=== PATIENT | female | born 1995 | race American Indian/Alaskan Native ===

== ENCOUNTER 2017-03-09 03:23 | Emergency (ER) | payer OTHER ==
[2017-03-09 03:44] VITALS: RESP 18
--- NOTE | 2017-03-09 03:51 | C.PDOC ---
History Of Present Illness patient complains of her usual migraine headache, which was not relieved with her usual Excedrin.No visual changes, some nausea, no vomiting. Time Seen by Provider: 03/09/17 03:51 Chief Complaint (Nursing): Headache History Per: Patient History/Exam Limitations: no limitations Onset/Duration Of Symptoms: Days Current Symptoms Are (Timing): Still Present Severity: Moderate Pain Scale Rating Of: 5 Quality: Dull, Aching, Tightness Preceeding Symptoms: None Associated Symptoms: Nausea Recent travel outside of the [place]: No Additional History Per: Family Past Medical History Reviewed: Historical Data, Nursing Documentation, Vital Signs Vital Signs: Last Vital Signs Temp 100.5 F H 03/09/17 03:40 Pulse 106 H 03/09/17 03:40 Resp 18 03/09/17 03:40 BP 116/79 03/09/17 03:40 Pulse Ox 100 03/09/17 04:52 Family History: States: No Known Family Hx - Social History Hx Alcohol Use: No Hx Substance Use: No - Immunization History Hx Tetanus Toxoid Vaccination: No Hx Influenza Vaccination: No Hx Pneumococcal Vaccination: No Review Of Systems Constitutional: Negative for: Fever, Chills Eyes: Negative for: Redness ENT: Negative for: Throat Pain Cardiovascular: Negative for: Chest Pain Respiratory: Negative for: Shortness of Breath Gastrointestinal: Positive for: Nausea. Negative for: Vomiting Genitourinary: Negative for: Dysuria Musculoskeletal: Negative for: Back Pain Skin: Negative for: Rash, Lesions Neurological: Positive for: Headache Psych: Positive for: Anxiety Physical Exam - Physical Exam Appears: Non-toxic, No Acute Distress Skin: Warm, Dry Head: Normacephalic Eye(s): bilateral: Normal Inspection, PERRL, EOMI Oral Mucosa: Moist Neck: Supple Chest: Symmetrical Cardiovascular: Rhythm Regular Respiratory: No Rales, No Rhonchi, No Wheezing Gastrointestinal/Abdominal: Soft, No Tenderness, No Distention Back: No CVA Tenderness Extremity: Normal ROM Extremity: Bilateral: Atraumatic Neurological/Psych: Oriented x3, Normal Speech, Normal Cognition Gait: Steady ED Course And Treatment - Laboratory Results Result Diagrams: 03/09/17 04:12 03/09/17 04:12 O2 Sat by Pulse Oximetry: 100 Pulse Ox Interpretation: Normal Reevaluation Time: 05:26 Reassessment Condition: Improved Disposition Counseled Patient/Family Regarding: Studies Performed, Diagnosis, Need For Followup, Rx Given - Disposition Referrals: [facility] [Outside] [facility] [Outside] Disposition: HOME/ ROUTINE Disposition Time: 03:51 Condition: FAIR Prescriptions: Naproxen [Naprosyn] 1 tab PO BID PRN #12 tab PRN Reason: Pain Ondansetron ODT [Zofran ODT] 1 odt PO BID PRN #10 odt PRN Reason: Nausea/Vomiting Instructions: Migraine Headache (ED), Hypokalemia (DC) Forms: [employer] (Bhutanese) - Clinical Impression Clinical Impression: Migraine, Hypokalemia
[2017-03-09] MEDS ORDERED: DiphenhydrAMINE 50 mg/ml Inj IVP STA (03:54)
[2017-03-09] MEDS ORDERED: DiphenhydrAMINE 50 mg/ml Inj ONE (04:01)
[2017-03-09 04:15] LABS: BASO % 0.5 % (0.0-2.0); EOS % 0.1 % (0.0-4.0); HEMATOCRIT 39.4 % (34.0-47.0); LYMPH # 1.5 K/uL (1.0-4.3); LYMPH % 22.4 % (20.0-40.0); MEAN CELL VOLUME 87.2 fL (81.0-99.0); MEAN CORPUSCULAR HEMOGLOBIN 29.9 pg (27.0-31.0); MEAN CORPUSCULAR HGB CONC 34.2 g/dL (33.0-37.0); MONO # 0.6 K/uL (0.0-0.8); MONO % 8.7 % (0.0-10.0); RED CELL DISTRIBUTION WIDTH 13.3 % (11.5-14.5); WHITE BLOOD COUNT 6.7 K/uL (4.8-10.8)
[2017-03-09 04:27] LABS: BLOOD UREA NITROGEN 11 mg/dL (7-17); CALCIUM 8.8 mg/dl (8.6-10.4); CARBON DIOXIDE 21 mmol/L (22-30); CHLORIDE 99 mmol/L (98-107); GFR AFRICAN-AMERICAN > 60; GLUCOSE,RANDOM 95 mg/dL (65-105); POTASSIUM 3.2 mmol/L (3.6-5.2); SODIUM 140 mmol/L (132-148)
[2017-03-09 04:55] LABS: RBC URINE 2 /hpf (0-3); URINE BILIRUBIN NEGATIVE (NEGATIVE); URINE BLOOD NEGATIVE (NEGATIVE); URINE COLOR Yellow (YELLOW); URINE GLUCOSE (UA) NORMAL (Normal); URINE KETONE 1+ mg/dL (NEGATIVE); URINE LEUKOCYTE ESTERASE NEG Leu/uL (Negative); URINE PROTEIN 1+ mg/dL (NEGATIVE); URINE UROBILINOGEN NORMAL mg/dL (0.2-1.0); WBC URINE 3 /hpf (0-5)
[2017-03-09] MEDS ORDERED: Potassium Chloride 10 mEq ER Tab PO STA (05:26)
[2017-03-09] MEDS ORDERED: Potassium Chloride 10 mEq ER Tab PO ONE (05:31)
[2017-03-09 05:40] VITALS: BP 96/60; PULSE 105; TEMP 98.3; O2SAT 99
== END 2017-03-09 05:50 | disposition home or self-care (01) ==
LOC: C.ER 03:23
DX: E87.6 Hypokalemia (principal); G43.909 Migraine, unspecified, not intractable, without status migrainosus
CPT/HCPCS: 80048; 81001; 84703; 85025; 96374; 96375; 99285; G0480; J1200; J1885; J2405

== ENCOUNTER 2017-03-11 13:26 | Inpatient (IN) | payer OTHER ==
[2017-03-11 13:42] VITALS: BMI 17.6
[2017-03-11 13:57] LABS: BASO % 0.9 % (0.0-2.0); EOS % 0.1 % (0.0-4.0); HEMATOCRIT 37.6 % (34.0-47.0); LYMPH # 1.6 K/uL (1.0-4.3); LYMPH % 46.2 % (20.0-40.0); MEAN CORPUSCULAR HEMOGLOBIN 29.5 pg (27.0-31.0); MEAN CORPUSCULAR HGB CONC 34.3 g/dL (33.0-37.0); MEAN PLATELET VOLUME 6.8 fL (7.2-11.7); MONO # 0.3 K/uL (0.0-0.8); MONO % 9.8 % (0.0-10.0); NRBC % 0.1 % (0.0-2.0); WHITE BLOOD COUNT 3.5 K/uL (4.8-10.8)
[2017-03-11 14:08] LABS: ALB/GLOB RATIO 1.4 (1.0-2.1); ALKALINE PHOSPHATASE 32 U/L (38-126); ALT/SGPT 24 U/L (9-52); AST/SGOT 16 U/L (14-36); BILIRUBIN,TOTAL 0.4 mg/dL (0.2-1.3); BLOOD UREA NITROGEN 12 mg/dL (7-17); CALCIUM 8.3 mg/dl (8.6-10.4); CARBON DIOXIDE 22 mmol/L (22-30); CHLORIDE 93 mmol/L (98-107); GFR AFRICAN-AMERICAN > 60; GLUCOSE,RANDOM 106 mg/dL (65-105); POTASSIUM 3.5 mmol/L (3.6-5.2); SODIUM 132 mmol/L (132-148); TOTAL PROTEIN 6.5 g/dL (6.3-8.3)
[2017-03-11 14:48] LABS: RBC URINE < 1 /hpf (0-3); URINE BILIRUBIN NEGATIVE (NEGATIVE); URINE BLOOD NEGATIVE (NEGATIVE); URINE COLOR Yellow (YELLOW); URINE GLUCOSE (UA) NORMAL (Normal); URINE KETONE TRACE mg/dL (NEGATIVE); URINE LEUKOCYTE ESTERASE NEG Leu/uL (Negative); URINE PROTEIN NEGATIVE (NEGATIVE); URINE UROBILINOGEN NORMAL mg/dL (0.2-1.0); WBC URINE 2 /hpf (0-5)
[2017-03-11] MEDS ORDERED: Lidocaine 1% Inj (20ml) INFIL STA (14:54)
[2017-03-11] MEDS ORDERED: Lidocaine 1% Inj (20ml) ONE (15:02)
--- NOTE | 2017-03-11 15:34 | C.PDOC ---
History Of Present Illness <Lolyd Cline P - Last Filed: 03/11/17 16:33> <LetyMakayla - Last Filed: 03/11/17 19:04> 21 yo female with h/o migraines c/o headache for 5 days associated with fever, vomiting and neck pain. PT notes she was at school today and the nurse said her temp was 101. Lives in college dorm. States she has taken aleve without relief. No visual changes. (+) body aches. No rash. (Makayla Davidson) <Lloyd Cline P - Last Filed: 03/11/17 16:33> History Per: Patient History/Exam Limitations: no limitations Onset/Duration Of Symptoms: Days (3) Current Symptoms Are (Timing): Still Present Associated Symptoms: Photophobia, Nausea, Vomiting Additional History Per: Patient <Makayla Davidson - Last Filed: 03/11/17 19:04> Time Seen by Provider: 03/11/17 13:29 Chief Complaint (Nursing): Headache Past Medical History Reviewed: Historical Data, Nursing Documentation, Vital Signs - Medical History PMH: Migraine Family History: States: Unknown Family Hx - Social History Hx Alcohol Use: No Hx Substance Use: No - Immunization History Hx Tetanus Toxoid Vaccination: No Hx Influenza Vaccination: No Hx Pneumococcal Vaccination: No <Makayla Davidson - Last Filed: 03/11/17 19:04> Vital Signs: Last Vital Signs Temp 98.7 F 03/11/17 13:35 Pulse 99 H 03/11/17 13:35 Resp 19 03/11/17 13:35 BP 113/75 03/11/17 13:35 Pulse Ox 99 03/11/17 18:03 Review Of Systems Except As Marked, All Systems Reviewed And Found Negative. Constitutional: Positive for: Fever, Other (body aches) Eyes: Negative for: Vision Change Gastrointestinal: Positive for: Vomiting. Negative for: Abdominal Pain Musculoskeletal: Positive for: Neck Pain Skin: Negative for: Rash Neurological: Positive for: Headache. Negative for: Dizziness <Makayla Davidson - Last Filed: 03/11/17 19:04> Physical Exam - Physical Exam Appears: Non-toxic, Other (uncomfortable) Skin: Normal Color, Warm, Dry, No Rash Head: Atraumatic, Normacephalic Eye(s): bilateral: Normal Inspection, PERRL, EOMI Nose: Normal Oral Mucosa: Moist Neck: Decreased ROM, No Supple Chest: Symmetrical Cardiovascular: Rhythm Regular, No Murmur Respiratory: Normal Breath Sounds, No Rales, No Rhonchi, No Wheezing Gastrointestinal/Abdominal: Soft, No Tenderness Extremity: Normal ROM Neurological/Psych: Oriented x3, Normal Speech <Makayla Davidson - Last Filed: 03/11/17 19:04> ED Course And Treatment - Laboratory Results Result Diagrams: 03/11/17 13:52 03/11/17 13:52 <Lloyd Cline - Last Filed: 03/11/17 16:33> - Laboratory Results Result Diagrams: 03/11/17 13:52 03/11/17 13:52 O2 Sat by Pulse Oximetry: 99 (on RA) Pulse Ox Interpretation: Normal Progress Note: Blood work, UA, ordered and reviewed. Lumbar procedure was performed. Patient tolerated the procedure well with no immediate complications. CSF was sent to lab for analysis. Lab results reviewed. Pt was given Decadron, Reglan, Toradol, and Rocephin. On reassessment, pt is resting comfortably, with improvement of headache. Case discussed with Son, who evaluated pt and preformed LP. Case discsused with Dr Jaxon Aguila, agreed upon admission. Instructs ICU consult and Yassine ID consult. Case discussed with Dr Johnson, who instructs acyclovir and additional CSF test as ordered. Case endorsed to Dr Matos pending ICU evaluation. <Makayla Davdison - Last Filed: 03/11/17 19:04> Lumbar Puncture - Consent obtained Consent obtained: Written - Performed by Performed by: Attending Physician - Indications Indication(s): Suspected menigitis - Patient Position Patient position: Left lateral decubitus - Local Anesthetic Location: L3/L4 - Fluid Appearance Fluid Appearance: Clear - Post-procedure Post-procedure: No leak/bld from LP site, Dressing applied - CSF Studies CSF Studies: Cell count/diff, Glucose, Protein, Gram stain, culture/sensitivity - Patient tolerated procedure Patient tolerated procedure: Well <Lloyd Cline - Last Filed: 03/11/17 16:33> Disposition <Lloyd Cline - Last Filed: 03/11/17 16:33> - Disposition Disposition Time: 19:03 <Makayla Davidson - Last Filed: 03/11/17 19:04> - Disposition Disposition: HOSPITALIZED Condition: STABLE Forms: [facility] (Occitan) - Clinical Impression Clinical Impression: Meningitis, Headache <Lloyd Cline - Last Filed: 03/11/17 16:33> - PA / MAIL HANDLER / Resident Statement MD/DO has reviewed & agrees with the documentation as recorded. - Scribe Statement The provider has reviewed the documentation as recorded by the Scribe <Makayla Davidson - Last Filed: 03/11/17 19:04> - Scribe Statement Don Aguila All medical record entries made by the Scribe were at my direction and personally dictated by me. I have reviewed the chart and agree that the record accurately reflects my personal performance of the history, physical exam, medical decision making, and the department course for this patient. I have also personally directed, reviewed, and agree with the discharge instructions and disposition. (Makayla Davidson)
[2017-03-11 16:37] LABS: FLUID TYPE SPINAL FLUID
[2017-03-11] MEDS ORDERED: cefTRIAXone IV 1 gm in Dextros 50 ML IV ONE (17:00)
[2017-03-11] MEDS ORDERED: Dexamethasone 4 mg/1 ml IVP STA (17:02)
[2017-03-11] MEDS ORDERED: cefTRIAXone 2 GM in Sodium Chloride 0.9% 100 ML IVPB STA (17:06)
[2017-03-11] MEDS ORDERED: Dexamethasone 4 mg/1 ml ONE (17:22)
[2017-03-11 17:51] LABS: CSF NEUTROPHIL 2 % (0-0)
[2017-03-11] MEDS ORDERED: Acyclovir 400 MG in Sodium Chloride 0.9% 100 ML IV STA (18:44)
[2017-03-11] MEDS ORDERED: Vancomycin 1 GM 1 GM/250 ML BAG IV SCH (18:45)
[2017-03-11] MEDS ORDERED: Vancomycin 1 GM 1 GM/250 ML BAG IVPB ONE (19:31)
[2017-03-11] MEDS ORDERED: Vancomycin 1 GM 1 GM/250 ML BAG IV ONE (20:00)
--- NOTE | 2017-03-11 20:22 | CP.PCM.CON ---
History of Present Illness - History of Present Illness History of Present Illness: PCP: none Attending: Mingo Verduzco MD Reason for Consult: Assessment for ICU Chief Complaint: Headache Patient seen and examined in the ED HPI: 21 years old female who live in a college dorm, has Hx of Migraine who came to the Ed of 03/09/17 for headache. She was treated and discharged. She now returns 03/11/17 after being found with a temperature of 101F by the college nurse , with persistent severe frontal headache most intense above the eyes associated with nausea, vomits and stiff neck with some generalized body aches and stuffy nose. No coughing, SOB, chest pain, palpitation, diarrhea nor urinary symptoms. 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 FH: States Unknown family hx Allergies: NKDA Adverse effect to Pumpkin Medication: NSAID for Migraine Review of Systems - Constitutional Constitutional: Anorexia, Chills, Fatigue, Fever, Headache, Night Sweats - EENT Eyes: Photophobia. absent: Diplopia, Floaters, Requires Corrective Lenses, Sees Flashes Ears: absent: Decreased Hearing, Ear Discharge, Tinnitus Nose/Mouth/Throat: Nasal Congestion, Sinus Pain, Sinus Pressure. absent: Epistaxis, Sore Throat - Cardiovascular Cardiovascular: absent: Chest Pain, Dyspnea, Edema - Respiratory Respiratory: absent: Cough, Dyspnea, Wheezing - Gastrointestinal Gastrointestinal: Nausea, Vomiting. absent: Constipation, Diarrhea - Genitourinary Genitourinary: absent: Dysuria, Flank Pain, Hematuria, Urinary Frequency - Musculoskeletal Musculoskeletal: absent: Arthralgias, Back Pain Additional comments: Stiff neck Generalized muscular pains - Integumentary Integumentary: absent: Pruritus, Rash, Skin Ulcer, Sores, Striae, Swelling - Neurological Neurological: Headaches. absent: Confusion, Dizziness, Focal Weakness, Weakness - Psychiatric Psychiatric: absent: Anxiety, Depression, Panic Attacks - Endocrine Endocrine: absent: Palpitations, Polydipsia, Polyphagia, Polyuria - Hematologic/Lymphatic Hematologic: absent: Easy Bleeding, Easy Bruising Past Patient History - Past Medical History & Family History Past Medical History?: Yes - Past Social History Smoking Status: Never Smoked Chewing Tobacco Use: No Cigar Use: No Alcohol: None Drugs: Denies Home Situation {Lives}: With Family - CARDIAC Hx Cardiac Disorders: No - PULMONARY Hx Respiratory Disorders: No - NEUROLOGICAL Hx Migraine: Yes - HEENT Hx HEENT Problems: No - RENAL Hx Chronic Kidney Disease: No - ENDOCRINE/METABOLIC Hx Endocrine Disorders: No - HEMATOLOGICAL/ONCOLOGICAL Hx Blood Disorders: No - INTEGUMENTARY Hx Dermatological Problems: No - MUSCULOSKELETAL/RHEUMATOLOGICAL Hx Musculoskeletal Disorders: No - GASTROINTESTINAL Hx Gastrointestinal Disorders: No - GENITOURINARY/GYNECOLOGICAL Hx Genitourinary Disorders: No - PSYCHIATRIC Hx Psychophysiologic Disorder: No Hx Substance Use: No - SURGICAL HISTORY Hx Surgeries: No - ANESTHESIA Hx Anesthesia: No Meds Allergies/Adverse Reactions: Allergies Allergy/AdvReac Type Severity Reaction Status Date / Time pumpkin Allergy Verified 03/11/17 13:47 - Medications Medications: Current Medications Vancomycin HCl (Vancomycin 1gm In Normal Saline Addvantage) 1 gm in 250 mls @ 166.667 mls/hr IV STAT ONE Stop: 03/11/17 21:29 Last Admin: 03/11/17 20:04 Dose: 166.667 mls/hr Physical Exam - Constitutional Appears: Well, No Acute Distress - Head Exam Head Exam: ATRAUMATIC, NORMAL INSPECTION, NORMOCEPHALIC - Eye Exam Eye Exam: EOMI, Normal appearance Pupil Exam: NORMAL ACCOMODATION, PERRL - ENT Exam ENT Exam: Mucous Membranes Moist, Normal Exam, Normal External Ear Exam, Normal Oropharynx - Neck Exam Neck exam: Negative for: Lymphadenopathy Additional comments: Mild Nucal rigidity and pain of flexion. - Respiratory Exam Respiratory Exam: Clear to Auscultation Bilateral. absent: Rales, Rhonchi, Wheezes - Cardiovascular Exam Cardiovascular Exam: REGULAR RHYTHM, RRR, +S1, +S2. absent: Gallop, JVD - GI/Abdominal Exam GI & Abdominal Exam: Normal Bowel Sounds, Soft. absent: Mass, Organomegaly Additional comments: Mild generalized abdominal pain. No guarding nor rebound tenderness. - Rectal Exam Rectal Exam: Deferred - Extremities Exam Extremities exam: Positive for: full ROM, normal inspection. Negative for: calf tenderness - Back Exam Back exam: NORMAL INSPECTION. absent: CVA tenderness (L), CVA tenderness (R) - Neurological Exam Neurological exam: Alert, CN II-XII Intact, Oriented x3, Reflexes Normal Additional comments: Nucal rigidity - Psychiatric Exam Psychiatric exam: Normal Affect, Normal Mood - Skin Skin Exam: Dry, Intact, Normal Color, Warm Results - Vital Signs Recent Vital Signs: Last Vital Signs Temp 98.9 F 03/11/17 20:01 Pulse 81 03/11/17 20:01 Resp 19 03/11/17 20:01 BP 110/75 03/11/17 20:01 Pulse Ox 100 03/11/17 20:01 - Labs Result Diagrams: 03/11/17 13:52 03/11/17 13:52 Labs: Laboratory Results - last 24 hr 03/11/17 03/11/17 03/11/17 13:52 13:52 14:19 WBC 3.5 L RBC 4.37 Hgb 12.9 Hct 37.6 MCV 86.0 MCH 29.5 MCHC 34.3 RDW 13.0 Plt Count 204 MPV 6.8 L Neut % (Auto) 43.0 L Lymph % (Auto) 46.2 H [place] % (Auto) 9.8 Eos % (Auto) 0.1 Baso % (Auto) 0.9 Neut # 1.5 L Lymph # 1.6 [place] # 0.3 Eos # 0.0 Baso # 0.0 Sodium 132 Potassium 3.5 L Chloride 93 L Carbon Dioxide 22 Anion Gap 21 H BUN 12 Creatinine 0.9 Est GFR ( Amer) > 60 Est GFR (Non-Af Amer) > 60 Random Glucose 106 H Calcium 8.3 L Total Bilirubin 0.4 AST 16 ALT 24 Alkaline Phosphatase 32 L Total Protein 6.5 Albumin 3.8 Globulin 2.7 Albumin/Globulin Ratio 1.4 Urine Color Yellow Urine Clarity Clear Urine pH 5.0 Ur Specific Energy 1.010 Urine Protein Negative Urine Glucose (UA) Normal Urine Ketones Trace Urine Blood Negative Urine Nitrate Negative Urine Bilirubin Negative Urine Urobilinogen Normal Ur Leukocyte Esterase Neg Urine WBC (Auto) 2 Urine RBC (Auto) < 1 Ur Squamous Epith Cells 2 Urine HCG, Qual Fluid Type CSF Volume CSF Appearance CSF WBC CSF RBC CSF Total Cell Counted CSF Neutrophils CSF Lymphocytes CSF Monos/Macrophages CSF Comment CSF Glucose CSF Total Protein Influenza Typ A,B (EIA) 03/11/17 03/11/17 03/11/17 14:19 14:22 16:34 WBC RBC Hgb Hct MCV MCH MCHC RDW Plt Count MPV Neut % (Auto) Lymph % (Auto) [place] % (Auto) Eos % (Auto) Baso % (Auto) Neut # Lymph # [place] # Eos # Baso # Sodium Potassium Chloride Carbon Dioxide Anion Gap BUN Creatinine Est GFR ( Amer) Est GFR (Non-Af Amer) Random Glucose Calcium Total Bilirubin AST ALT Alkaline Phosphatase Total Protein Albumin Globulin Albumin/Globulin Ratio Urine Color Urine Clarity Urine pH Ur Specific Energy Urine Protein Urine Glucose (UA) Urine Ketones Urine Blood Urine Nitrate Urine Bilirubin Urine Urobilinogen Ur Leukocyte Esterase Urine WBC (Auto) Urine RBC (Auto) Ur Squamous Epith Cells Urine HCG, Qual Negative Fluid Type CSF Volume CSF Appearance CSF WBC CSF RBC CSF Total Cell Counted CSF Neutrophils CSF Lymphocytes CSF Monos/Macrophages CSF Comment CSF Glucose 46 CSF Total Protein 103.0 H* Influenza Typ A,B (EIA) Negative for flu a/b 03/11/17 16:34 WBC RBC Hgb Hct MCV MCH MCHC RDW Plt Count MPV Neut % (Auto) Lymph % (Auto) [place] % (Auto) Eos % (Auto) Baso % (Auto) Neut # Lymph # [place] # Eos # Baso # Sodium Potassium Chloride Carbon Dioxide Anion Gap BUN Creatinine Est GFR ( Amer) Est GFR (Non-Af Amer) Random Glucose Calcium Total Bilirubin AST ALT Alkaline Phosphatase Total Protein Albumin Globulin Albumin/Globulin Ratio Urine Color Urine Clarity Urine pH Ur Specific Energy Urine Protein Urine Glucose (UA) Urine Ketones Urine Blood Urine Nitrate Urine Bilirubin Urine Urobilinogen Ur Leukocyte Esterase Urine WBC (Auto) Urine RBC (Auto) Ur Squamous Epith Cells Urine HCG, Qual Fluid Type Spinal fluid CSF Volume 1 CSF Appearance Clear/colorless CSF WBC 158.0 H CSF RBC 4.0 H CSF Total Cell Counted TEST NOT PERFORMED CSF Neutrophils 2 H CSF Lymphocytes 92.0 H CSF Monos/Macrophages 4 H CSF Comment CSF Glucose CSF Total Protein Influenza Typ A,B (EIA) Assessment & Plan - Assessment and Plan (Free Text) Plan: 21 years old female who live in a college dorm, has Hx of Migraine who came to the Ed of 03/09/17 for headache. She was treated and discharged. She now returns after being found with a temperature of 101F by the college nurse, with persistent severe frontal headache, nausea, vomits and stiff neck . #. Viral Meningitis and not bacterial Meningitis as indicated in the CSF Lymphocytosis and elevated CSF Protein along with the general symptoms and signs The patient is hemodynamically stable and will need IV treatment Acyclovir. Vancomycin and Ceftriaxone were started in the ED -Follow Blood and CSF cultures - Head CT if not done - ID Dr Metzger is on consult - Droplet Precaution as per hospital protocol - Treat electrolyte imbalance No Immediate need for ICU management as the patient is Clinically and Hemodynamically stable. Fernando Fulton MD - Date & Time Date: 03/11/17 Time: 20:21
[2017-03-11] MEDS ORDERED: Potassium Chloride 20 mEq ER Tab PO STA (22:14)
[2017-03-11] MEDS ORDERED: Potassium Chloride 20 mEq ER Tab PO ONE (22:48)
[2017-03-12] MEDS: Acyclovir 500 MG in Sodium Chloride 0.9% 100 ML IV SCH ×3 (03:28→22:58)
[2017-03-12] MEDS: cefTRIAXone 2 GM in Sodium Chloride 0.9% 100 ML IVPB SCH ×2 (06:06→17:08)
[2017-03-12 07:04] LABS: BASO % 0.5 % (0.0-2.0); HEMATOCRIT 38.7 % (34.0-47.0); LYMPH # 0.9 K/uL (1.0-4.3); LYMPH % 40.1 % (20.0-40.0); MEAN CELL VOLUME 86.9 fL (81.0-99.0); MEAN CORPUSCULAR HEMOGLOBIN 29.8 pg (27.0-31.0); MEAN CORPUSCULAR HGB CONC 34.3 g/dL (33.0-37.0); MEAN PLATELET VOLUME 7.4 fL (7.2-11.7); MONO # 0.4 K/uL (0.0-0.8); MONO % 17.3 % (0.0-10.0); NRBC % 0.2 % (0.0-2.0); RED CELL DISTRIBUTION WIDTH 13.5 % (11.5-14.5); WHITE BLOOD COUNT 2.2 K/uL (4.8-10.8)
[2017-03-12 07:37] LABS: ALB/GLOB RATIO 1.1 (1.0-2.1); ALKALINE PHOSPHATASE 36 U/L (38-126); ALT/SGPT 24 U/L (9-52); AST/SGOT 21 U/L (14-36); BILIRUBIN,TOTAL 0.3 mg/dL (0.2-1.3); BLOOD UREA NITROGEN 14 mg/dL (7-17); CALCIUM 8.7 mg/dl (8.6-10.4); CARBON DIOXIDE 24 mmol/L (22-30); CHLORIDE 100 mmol/L (98-107); GFR AFRICAN-AMERICAN > 60; GLUCOSE,RANDOM 110 mg/dL (65-105); POTASSIUM 4.5 mmol/L (3.6-5.2); SODIUM 137 mmol/L (132-148); TOTAL PROTEIN 6.9 g/dL (6.3-8.3)
--- NOTE | 2017-03-12 09:00 | CT ---
PROCEDURE: CT HEAD WITHOUT CONTRAST. HISTORY: headache ,vomiting COMPARISON: None available. TECHNIQUE: Axial computed tomography images were obtained through the head/brain without intravenous contrast. Radiation dose: Total exam DLP = 711.77 mGy-cm. This CT exam was performed using one or more of the following dose reduction techniques: Automated exposure control, adjustment of the mA and/or kV according to patient size, and/or use of iterative reconstruction technique. FINDINGS: HEMORRHAGE: No intracranial hemorrhage. BRAIN: No mass effect or edema. No atrophy or chronic microvascular ischemic changes. VENTRICLES: Unremarkable. No hydrocephalus. CALVARIUM: Unremarkable. PARANASAL SINUSES: Unremarkable as visualized. No significant inflammatory changes. MASTOID AIR CELLS: Unremarkable as visualized. No inflammatory changes. OTHER FINDINGS: None. IMPRESSION: Normal CT of the Head. No intracranial mass, hemorrhage or evidence of acute infarct.
--- NOTE | 2017-03-12 15:44 | CP.PCM.HP ---
History of Present Illness - History of Present Illness History of Present Illness: 21-year-old female with history of migraine who lives in the dorm came in with a fever headache stiff neck along with the generalized body pain with some nausea and mild cough and stuffy nose no chest pain no shortness of breath no diarrhea no burning urination's upon arrival to the ER primary diagnosis was possible meningitis underwent lumbar puncture which showed lymphocytes of 92% with the CSF WBC of 153 with very high protein of 103 calcium was in the bladder was 8.3 WBC was 3.5 which came down to 2.2 patient also had a CAT scan done earlier which revealed and CAT scan revealed CAT scan revealed a normal CAT scan Past Patient History - Past Medical History & Family History Past Medical History?: Yes - Past Social History Smoking Status: Never Smoked - CARDIAC Hx Cardiac Disorders: No - PULMONARY Hx Respiratory Disorders: No - NEUROLOGICAL Hx Neurological Disorder: Yes Hx Migraine: Yes - HEENT Hx HEENT Problems: No - RENAL Hx Chronic Kidney Disease: No - ENDOCRINE/METABOLIC Hx Endocrine Disorders: No - HEMATOLOGICAL/ONCOLOGICAL Hx Blood Disorders: No - INTEGUMENTARY Hx Dermatological Problems: No - MUSCULOSKELETAL/RHEUMATOLOGICAL Hx Musculoskeletal Disorders: No Hx Falls: No - GASTROINTESTINAL Hx Gastrointestinal Disorders: Yes Other/Comment: has a hernia - GENITOURINARY/GYNECOLOGICAL Hx Genitourinary Disorders: No - PSYCHIATRIC Hx Psychophysiologic Disorder: No Hx Substance Use: No - SURGICAL HISTORY Hx Surgeries: No - ANESTHESIA Hx Anesthesia: No Hx Anesthesia Reactions: No Hx Malignant Hyperthermia: No Has any member of the family had a problem w/ anesthesia?: No Meds Allergies/Adverse Reactions: Allergies Allergy/AdvReac Type Severity Reaction Status Date / Time pumpkin Allergy Verified 03/11/17 13:47 Physical Exam - Constitutional Appears: Well - Head Exam Head Exam: ATRAUMATIC, NORMAL INSPECTION, NORMOCEPHALIC - Eye Exam Eye Exam: EOMI, Normal appearance, PERRL Pupil Exam: NORMAL ACCOMODATION, PERRL - ENT Exam ENT Exam: Mucous Membranes Moist, Normal Exam - Neck Exam Neck exam: Positive for: Normal Inspection - Respiratory Exam Respiratory Exam: Decreased Breath Sounds - Cardiovascular Exam Cardiovascular Exam: REGULAR RHYTHM, +S1, +S2 - GI/Abdominal Exam GI & Abdominal Exam: Diminished Bowel Sounds, Soft - Rectal Exam Rectal Exam: Deferred Results - Vital Signs Recent Vital Signs: Last Vital Signs Temp 99.8 F H 03/12/17 15:27 Pulse 81 03/12/17 15:27 Resp 18 03/12/17 15:27 BP 108/68 03/12/17 15:27 Pulse Ox 100 03/12/17 15:27 - Labs Result Diagrams: 03/12/17 06:55 03/12/17 06:55 Labs: Laboratory Results - last 24 hr 03/12/17 03/12/17 06:55 06:55 WBC 2.2 L RBC 4.45 Hgb 13.3 Hct 38.7 MCV 86.9 MCH 29.8 MCHC 34.3 RDW 13.5 Plt Count 224 MPV 7.4 Neut % (Auto) 42.1 L Lymph % (Auto) 40.1 H [place] % (Auto) 17.3 H Eos % (Auto) 0.0 Baso % (Auto) 0.5 Neut # 0.9 L Lymph # 0.9 L [place] # 0.4 Eos # 0.0 Baso # 0.0 Sodium 137 Potassium 4.5 Chloride 100 Carbon Dioxide 24 Anion Gap 17 BUN 14 Creatinine 0.7 Est GFR ( Amer) > 60 Est GFR (Non-Af Amer) > 60 Random Glucose 110 H Calcium 8.7 Total Bilirubin 0.3 AST 21 ALT 24 Alkaline Phosphatase 36 L Total Protein 6.9 Albumin 3.7 Globulin 3.2 Albumin/Globulin Ratio 1.1
--- NOTE | 2017-03-12 15:56 | PN ---
DATE: REFERRING PHYSICIAN: Dax Aguila MD HISTORY OF PRESENT ILLNESS: The patient feels significantly better than yesterday, but still complaining of headache on a scale of 1-10, 5-6/10 associated with mild photophobia and phonophobia. The patient is still in insolation room. The patient also is complaining of mild neck pain and generalized fatigue and weakness. PHYSICAL EXAMINATION VITAL SIGNS: Blood pressure 105/64, pulse 87, respirations 20, and temperature 99.1. MENTAL STATUS: The patient is alert, awake and oriented x3. CRANIAL NERVES: Pupils 3 mm bilaterally active. There is a minimal end-gaze nystagmus for few beats. No field defect. No facial asymmetry. There is mild tenderness in the neck and mild limited range of movement. MOTOR: No focal motor deficits. The patient do have still photophobia and phonophobia, but no nausea or vomiting. IMPRESSION: The patient's cerebrospinal fluid findings consistent with most likely viral meningitis less, likely bacterial, although entirelylymphocyte Continue current treatment with acylovir, ceftriaxone, and vancomycin, p.r.n. acetaminophen for the headache. The patient's examination is nonfocal at this point. No confusion and the patient's mental state is her baseline. No confusion associated with her meningitis. Thank you for the consultation and we will follow up with you. David Beatty MD SHAYY
--- NOTE | 2017-03-13 00:19 | CON ---
DATE: 03/11/2017 REASON FOR CONSULTATION: Headache and neck pain. HISTORY OF PRESENT ILLNESS: The patient is a 21-year-old right-handed pleasant lady with no significant past medical history except for occasional headache and migraine. The patient has been complaining from headache different than the headache she used to have for 5 days prior to admission, and the patient used to take Aleve without significant help. Usually, Aleve was is helping her and then the patient started to have neck pain and fever, nausea, vomiting, photophobia, phonophobia and generalized fatigue and weakness. The patient was found to have a temperature of 101 at the [facility] and the patient was sent to the emergency room for evaluation. The patient in the emergency room had a spinal tap and spinal tap was positive for increased protein. The patient was started on antiviral and antibiotics in the emergency room and neuro consult was requested for evaluation. The patient is currently in bed and family at bedside and isolation room in ER. PAST MEDICAL HISTORY: Migraines. SOCIAL HISTORY: Nonsmoker. Ethanol and drug abuser. ALLERGIES: ALLERGIC TO PUMPKIN. REVIEW OF SYSTEMS: As per H and P and ER note reviewed. PHYSICAL EXAMINATION VITAL SIGNS: Blood pressure 113/75, pulse 90 now, respirations 19, temperature 98.7. MENTAL STATUS: The patient is alert, awake, and oriented x3. Normal naming, repetition, comprehension. No agnosia, no apraxia. No right to left confusion. No finger agnosia. Double simultaneous stimulation intact. Pupils are 2 to 3 mm bilaterally active. No facial asymmetry. No field defect. V1 to V3 intact. Positive photophobia and phonophobia. HEENT: No nystagmus. No double vision. NECK: Marked stiffness of the neck, but tenderness. MOTOR: Normal tone in upper and lower extremities. No pronator drift. Upper and lower extremities deltoid, elbow, and environmental auditor 5/5. Lower extremities, hip, knee and ankle 5/5. Deep tendon reflexes 2 in the upper and lower extremities, plantar flexion both sides. SENSORY: Pinprick, light touch and position intact. Coordination, [id number] intact. LABORATORY DATA: White blood cells 3.5, red blood cells 4.37, neutrophils 43, lymphocytes 46.2. CSF; white blood cells 158, red blood cells of 4, neutrophils 2, lymphocytes 42, monocytes 4, protein 103. IMPRESSION: The patient's findings are most likely consistent with viral meningitis, but possibility of bacterial is less likely but cannot be excluded entirely, although the patient's white blood cells is low and lymphocytes and neutrophils are equal and the CSF lymphocyte is predominant, it makes possibility of viral highly likely. Continue current medication. The patient is on acyclovir, ceftriaxone, and vancomycin, in addition to Zofran p.r.n. and Tylenol for headaches. Continue current treatment, I have sent also the Lyme titer with some blood because of the frequent cases lately with Lyme disease and just we had a recent case with CH[employer] REPA[employer] Lyme disease. Thank you for the consultation and we will followup with you. David Beatty MD [facility]
[2017-03-13] MEDS: Acyclovir 500 MG in Sodium Chloride 0.9% 100 ML IV SCH ×3 (03:52→19:14)
[2017-03-13] MEDS: cefTRIAXone 2 GM in Sodium Chloride 0.9% 100 ML IVPB SCH ×2 (07:30→17:38)
--- NOTE | 2017-03-13 11:06 | CP.PCM.PN ---
Subjective - Date & Time of Evaluation Date of Evaluation: 03/13/17 Time of Evaluation: 10:20 - Subjective Subjective: clinically same Objective - Vital Signs/Intake and Output Vital Signs (last 24 hours): Temp Pulse Resp BP Pulse Ox 98.7 F 88 20 108/69 98 03/13/17 08:00 03/13/17 08:00 03/13/17 08:00 03/13/17 08:00 03/13/17 08:00 - Medications Medications: Current Medications Acetaminophen (Tylenol 325mg Tab) 650 mg PO Q6 PRN PRN Reason: Headache Last Admin: 03/13/17 05:12 Dose: 650 mg Acyclovir 500 mg/ Sodium (Chloride) 100 mls @ 100 mls/hr IV Q8H [facility] Last Admin: 03/13/17 03:52 Dose: 100 mls/hr Ceftriaxone Sodium 2 gm/ (Sodium Chloride) 100 mls @ 100 mls/hr IVPB Q12H [facility] Last Admin: 03/13/17 07:30 Dose: 100 mls/hr Vancomycin HCl 1,000 mg/ (Sodium Chloride) 250 mls @ 166.6 mls/hr IVPB Q12H [facility] Last Admin: 03/13/17 09:00 Dose: 166.6 mls/hr Ondansetron HCl (Zofran Inj) 4 mg IVP Q8 PRN PRN Reason: Nausea/Vomiting Last Admin: 03/12/17 12:58 Dose: 4 mg - Labs Labs: 03/12/17 06:55 03/12/17 06:55 - Constitutional Appears: Well - Head Exam Head Exam: ATRAUMATIC, NORMAL INSPECTION, NORMOCEPHALIC - Eye Exam Eye Exam: EOMI, Normal appearance, PERRL Pupil Exam: NORMAL ACCOMODATION, PERRL - ENT Exam ENT Exam: Mucous Membranes Moist, Normal Exam - Neck Exam Neck Exam: Full ROM, Normal Inspection. absent: Lymphadenopathy - Respiratory Exam Respiratory Exam: Decreased Breath Sounds - Cardiovascular Exam Cardiovascular Exam: REGULAR RHYTHM, +S1, +S2 - GI/Abdominal Exam GI & Abdominal Exam: Soft, Diminished Bowel Sounds - Rectal Exam Rectal Exam: Deferred
--- NOTE | 2017-03-13 14:43 | CP.PCM.CON ---
History of Present Illness - History of Present Illness History of Present Illness: 21 years old female who live in a college dorm, has Hx of Migraine who came to the Ed of 03/09/17 for headache. She was treated and discharged. She now returns after being found with a temperature of 101F by the college nurse, with persistent severe frontal headache most intense above the eyes associated with nausea, vomits and stiff neck with some generalized body aches and stuffy nose. No coughing, SOB, chest pain, palpitation, diarrhea nor urinary symptoms. 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 NO TRAVEL EXCEPT February NO BITES FH: States Unknown family hx Allergies: NKDA Adverse effect to Pumpkin Medication: NSAID for Migraine Review of Systems - Constitutional Constitutional: As Per HPI - EENT Eyes: absent: As Per HPI, Blind Spots, Blurred Vision, Change in Vision, Decreased Night Vision, Diplopia, Discharge, Dry Eye, Exophthalmos, Floaters, Irritation, Itchy Eyes, Loss of Peripheral Vision, Pain, Photophobia, Requires Corrective Lenses, Sees Flashes, Spots in Vision, Tunnel Vision, Other Visual Disturbances, Loss of Vision, Other Ears: absent: As Per HPI, Decreased Hearing, Ear Discharge, Ear Pain, Tinnitus, Abnormal Hearing, Disequilibrium, Dizziness, Other Nose/Mouth/Throat: absent: As Per HPI, Epistaxis, Nasal Congestion, Nasal Discharge, Nasal Obstruction, Nasal Trauma, Nose Pain, Post Nasal Drip, Sinus Pain, Sinus Pressure, Bleeding Gums, Change in Voice, Dental Pain, Dry Mouth, Dysphagia, Halitosis, Hoarsness, Lip Swelling, Mouth Lesions, Mouth Pain, Odynophagia, Sore Throat, Throat Swelling, Tongue Swelling, Facial Pain, Neck Pain, Neck Mass, Other - Breasts Breasts: absent: As Per HPI, Change in Shape, Mass, Pain, Nipple Discharge, Nipple Inversion, Skin Changes, Swelling, Other - Cardiovascular Cardiovascular: absent: As Per HPI, Acrocyanosis, Chest Pain, Chest Pain at Rest , Chest Pain with Activity, Claudication, Diaphoresis, Dyspnea, Dyspnea on Exertion, Edema, Irregular Heart Rhythm, Pain Radiating to Arm/Neck/Jaw, Leg Edema, Leg Ulcers, Lightheadedness, Orthopnea, Palpitations, Paroxysmal Nocturnal Dyspnea, Pedal Edema, Radiating Pain, Rapid Heart Rate, Slow Heart Rate, Syncope, Other - Respiratory Respiratory: absent: As Per HPI, Cough, Dyspnea, Hemoptysis, Dyspnea on Exertion , Wheezing, Snoring, Stridor, Pain on Inspiration, Chest Congestion, Excessive Mucous Production, Change in Mucous Color, Pain with Coughing, Other - Gastrointestinal Gastrointestinal: absent: As Per HPI, Abdominal Pain, Belching, Bloating, Change in Bowel Habits, Change in Stool Character, Coffee Ground Emesis, Constipation, Cramping, Diarrhea, Dyspepsia, Dysphagia, Early Satiety, Excessive Flatus, Fecal Incontinence, Heartburn, Hematemesis, Hematochezia, Loose Stools, Melena, Nausea, Odynophagia, Temesmus, Vomiting, Other - Genitourinary Genitourinary: absent: As Per HPI, Change in Urinary Stream, Difficulty Urinating, Dysuria, Flank Pain, Hematuria, Pyuria, Nocturia, Urinary Incontinence, Urinary Frequency, Urinary Hesitance, Urinary Urgency, Voiding Freq/Small Amts, Freq UTI, Hx Renal/Bladder Calculi, Hx /Renal Surgery, Bladder Distension, Other - Reproductive: Female Reproductive:Female: absent: As Per HPI, Amenorrhea, Amenorrhea/ Control, Currently Menstual, Cycle <21 Days, Cycle >35 Days, Cycle Variable, Menses 1-7 Days, Menses >/= 8 Days, Menses Variable, Cycle > 4 Weeks Between, No Menses for 6 Months, Heavy Menses, Light Menses, Normal Menses, Spotting Between Cycles , S/P Hysterectomy, Menopausal, Post Menopausal, Premenarche, Abnormal Vaginal Bleeding, Dysmenorrhea, Dyspareunia, Genital Lesions, Genital Pruritis, Pelvic Pain, Prolapse Symptoms, Sexual Dysfunction, Vaginal Discharge, Vaginal Dryness , Vaginal Odor, Vaginal Pruritis, Other - Menstruation Menstruation: absent: As Per HPI, Amenorrhea, Amenorrhea/ Control, Currently Menstual, Cycle <21 Days, Cycle >35 Days, Cycle Variable, Menses 1-7 Days, Menses >/= 8 Days, Menses Variable, Cycle > 4 Weeks Between, No Menses for 6 Months, Heavy Menses, Light Menses, Normal Menses, Spotting Between Cycles , S/P Hysterectomy, Menopausal, Post Menopausal, Premenarche, Abnormal Vaginal Bleeding, Dysmenorrhea, Other - Musculoskeletal Musculoskeletal: absent: As Per HPI, Abnormal Gait, Arthralgias, Atrophy, Back Pain, Deformity, Joint Swelling, Limited Range of Motion, Loss of Height, Muscle Cramps, Muscle Weakness, Myalgias, Neck Pain, Numbness, Radiating Pain into Limb, Stiffness, Tingling, Other - Integumentary Integumentary: absent: As Per HPI, Acne, Alopecia, Bleeding Lesions, Change in Hair, Change in Nails, Change in Pigmentation, Changing Lesions, Dry Skin, Erythema, Furuncle, Hirsutism, Lesions, New Lesions, Non-Healing Lesions, Photosensitivity, Pruritus, Rash, Skin Pain, Skin Ulcer, Sores, Striae, Swelling , Unusual Bruising, Wounds, Jaundice, Other - Neurological Neurological: As Per HPI - Psychiatric Psychiatric: absent: As Per HPI, Abnormal Sleep Pattern, Anhedonia, Anxiety, Auditory Hallucinations, Behavioral Changes, Change in Appetite, Change in Libido, Confusion, Depression, Difficulty Concentrating, Hallucinations, Homicidal Ideation, Hopelessness, Irritability, Memory Loss, Mood Swings, Panic Attacks, Paranoia, Suicidal Ideation, Visual Hallucinations, Tactile Hallucinations, Other - Endocrine Endocrine: absent: As Per HPI, Change in Body Appearance, Change in Libido, Cold Intolorance, Deepening of Voice, Excessive Sweating, Fatigue, Flushing, Heat Intolorance, Increase in Ring/Shoe/Hat Size, Palpitations, Polydipsia, Polyphagia, Polyuria, Other - Hematologic/Lymphatic Hematologic: absent: As Per HPI, Easy Bleeding, Easy Bruising, Lymphadenopathy, Other Past Patient History - Past Medical History & Family History Past Medical History?: Yes - Past Social History Smoking Status: Never Smoked - CARDIAC Hx Cardiac Disorders: No - PULMONARY Hx Respiratory Disorders: No - NEUROLOGICAL Hx Neurological Disorder: Yes Hx Migraine: Yes - HEENT Hx HEENT Problems: No - RENAL Hx Chronic Kidney Disease: No - ENDOCRINE/METABOLIC Hx Endocrine Disorders: No - HEMATOLOGICAL/ONCOLOGICAL Hx Blood Disorders: No - INTEGUMENTARY Hx Dermatological Problems: No - MUSCULOSKELETAL/RHEUMATOLOGICAL Hx Musculoskeletal Disorders: No Hx Falls: No - GASTROINTESTINAL Hx Gastrointestinal Disorders: Yes Other/Comment: has a hernia - GENITOURINARY/GYNECOLOGICAL Hx Genitourinary Disorders: No - PSYCHIATRIC Hx Psychophysiologic Disorder: No Hx Substance Use: No - SURGICAL HISTORY Hx Surgeries: No - ANESTHESIA Hx Anesthesia: No Hx Anesthesia Reactions: No Hx Malignant Hyperthermia: No Has any member of the family had a problem w/ anesthesia?: No Meds Allergies/Adverse Reactions: Allergies Allergy/AdvReac Type Severity Reaction Status Date / Time pumpkin Allergy Verified 03/11/17 13:47 - Medications Medications: Current Medications Acetaminophen (Tylenol 325mg Tab) 650 mg PO Q6 PRN PRN Reason: Headache Last Admin: 03/13/17 11:48 Dose: 650 mg Acyclovir 500 mg/ Sodium (Chloride) 100 mls @ 100 mls/hr IV [facility]H [facility] Last Admin: 03/13/17 11:49 Dose: 100 mls/hr Ceftriaxone Sodium 2 gm/ (Sodium Chloride) 100 mls @ 100 mls/hr IVPB Q12H [facility] Last Admin: 03/13/17 07:30 Dose: 100 mls/hr Vancomycin HCl 1,000 mg/ (Sodium Chloride) 250 mls @ 166.6 mls/hr IVPB Q12H [facility] Last Admin: 03/13/17 09:00 Dose: 166.6 mls/hr Ondansetron HCl (Zofran Inj) 4 mg IVP Q8 PRN PRN Reason: Nausea/Vomiting Last Admin: 03/12/17 12:58 Dose: 4 mg Physical Exam - Constitutional Appears: Non-toxic, Chronically Ill - Head Exam Head Exam: NORMOCEPHALIC - Eye Exam Eye Exam: PERRL. absent: Scleral icterus - ENT Exam ENT Exam: Mucous Membranes Dry - Neck Exam Neck exam: Negative for: Lymphadenopathy - Respiratory Exam Respiratory Exam: Decreased Breath Sounds, Clear to Auscultation Bilateral - Cardiovascular Exam Cardiovascular Exam: REGULAR RHYTHM, +S1, +S2 - GI/Abdominal Exam GI & Abdominal Exam: Diminished Bowel Sounds, Soft. absent: Tenderness - Rectal Exam Rectal Exam: Deferred - Exam Exam: NORMAL INSPECTION - Extremities Exam Extremities exam: Positive for: pedal pulses present. Negative for: calf tenderness, pedal edema, tenderness - Back Exam Back exam: absent: CVA tenderness (L), CVA tenderness (R) - Neurological Exam Neurological exam: Alert, CN II-XII Intact, Oriented x3, Reflexes Normal - Psychiatric Exam Psychiatric exam: Normal Mood - Skin Skin Exam: Dry, Intact Results - Vital Signs Recent Vital Signs: Last Vital Signs Temp 98.7 F 03/13/17 08:00 Pulse 87 03/13/17 12:45 Resp 20 03/13/17 08:00 BP 108/69 03/13/17 08:00 Pulse Ox 98 03/13/17 08:00 - Labs Result Diagrams: 03/12/17 06:55 03/12/17 06:55 Assessment & Plan (1) Headache Status: Acute (2) Meningitis Status: Acute - Assessment and Plan (Free Text) Assessment: SHANTA VIRAL AWAIT SEROLOGIES/ CULTURES
[2017-03-14] MEDS: Acyclovir 500 MG in Sodium Chloride 0.9% 100 ML IV SCH ×3 (03:31→20:19)
[2017-03-14] MEDS: cefTRIAXone 2 GM in Sodium Chloride 0.9% 100 ML IVPB SCH ×2 (06:02→17:21)
[2017-03-14 11:46] LABS: BASO % 1.1 % (0.0-2.0); EOS % 0.2 % (0.0-4.0); HEMATOCRIT 38.3 % (34.0-47.0); LYMPH # 2.1 K/uL (1.0-4.3); LYMPH % 57.6 % (20.0-40.0); MEAN CELL VOLUME 87.1 fL (81.0-99.0); MEAN CORPUSCULAR HEMOGLOBIN 29.3 pg (27.0-31.0); MEAN CORPUSCULAR HGB CONC 33.7 g/dL (33.0-37.0); MEAN PLATELET VOLUME 7.5 fL (7.2-11.7); MONO # 0.5 K/uL (0.0-0.8); MONO % 13.2 % (0.0-10.0); NRBC % 0.1 % (0.0-2.0); WHITE BLOOD COUNT 3.6 K/uL (4.8-10.8)
[2017-03-14 12:07] LABS: ALB/GLOB RATIO 1.3 (1.0-2.1); ALKALINE PHOSPHATASE 29 U/L (38-126); ALT/SGPT 24 U/L (9-52); AST/SGOT 18 U/L (14-36); BILIRUBIN,TOTAL 0.4 mg/dL (0.2-1.3); BLOOD UREA NITROGEN 9 mg/dL (7-17); CALCIUM 8.9 mg/dl (8.6-10.4); CARBON DIOXIDE 25 mmol/L (22-30); CHLORIDE 95 mmol/L (98-107); GFR AFRICAN-AMERICAN > 60; GLUCOSE,RANDOM 81 mg/dL (65-105); PHOSPHOROUS 4.3 mg/dL (2.5-4.5); POTASSIUM 3.6 mmol/L (3.6-5.2); SODIUM 137 mmol/L (132-148); TOTAL PROTEIN 6.6 g/dL (6.3-8.3)
--- NOTE | 2017-03-14 12:37 | CP.PCM.PN ---
Subjective - Date & Time of Evaluation Date of Evaluation: 03/14/17 Time of Evaluation: 07:00 - Subjective Subjective: fever again last night all bacterial cultures neg will d/c vanco Objective - Vital Signs/Intake and Output Vital Signs (last 24 hours): Temp Pulse Resp BP Pulse Ox 99.7 F H 98 H 16 100/59 L 98 03/14/17 07:25 03/14/17 08:00 03/14/17 07:25 03/14/17 07:25 03/14/17 07:25 - Medications Medications: Current Medications Acetaminophen (Tylenol 325mg Tab) 650 mg PO Q6 PRN PRN Reason: Headache Last Admin: 03/14/17 06:01 Dose: 650 mg Acyclovir 500 mg/ Sodium (Chloride) 100 mls @ 100 mls/hr IV Q8H [facility] Last Admin: 03/14/17 12:27 Dose: 100 mls/hr Ceftriaxone Sodium 2 gm/ (Sodium Chloride) 100 mls @ 100 mls/hr IVPB Q12H [facility] Last Admin: 03/14/17 06:02 Dose: 100 mls/hr Ondansetron HCl (Zofran Inj) 4 mg IVP Q8 PRN PRN Reason: Nausea/Vomiting Last Admin: 03/12/17 12:58 Dose: 4 mg - Labs Labs: 03/14/17 11:41 03/14/17 11:41 - Constitutional Appears: Non-toxic, Chronically Ill - Head Exam Head Exam: NORMOCEPHALIC - Eye Exam Eye Exam: PERRL. absent: Scleral icterus - ENT Exam ENT Exam: Mucous Membranes Dry, Normal External Ear Exam - Neck Exam Neck Exam: absent: Lymphadenopathy - Respiratory Exam Respiratory Exam: Decreased Breath Sounds - Cardiovascular Exam Cardiovascular Exam: REGULAR RHYTHM - GI/Abdominal Exam GI & Abdominal Exam: Distended, Soft - Rectal Exam Rectal Exam: Deferred - Exam Exam: NORMAL INSPECTION - Extremities Exam Extremities Exam: absent: Pedal Edema - Back Exam Back Exam: absent: CVA tenderness (L), CVA tenderness (R) - Neurological Exam Neurological Exam: Alert, Awake, Oriented x3 - Psychiatric Exam Psychiatric exam: Normal Mood - Skin Skin Exam: Dry Assessment and Plan (1) Headache Status: Acute (2) Meningitis Status: Acute
--- NOTE | 2017-03-14 13:39 | CP.PCM.PN ---
Subjective - Date & Time of Evaluation Date of Evaluation: 03/14/17 Time of Evaluation: 13:35 - Subjective Subjective: Progress Note. Attending: Dr. Jaxon Aguila Pt seen and examined at bedside. No acute distress. Fever overnight, but resolved. Reports some muscle aches. No vomiting, diarrhea, headache better. ID following. Objective - Vital Signs/Intake and Output Vital Signs (last 24 hours): Temp Pulse Resp BP Pulse Ox 100.4 F H 98 H 16 100/59 L 98 03/14/17 13:00 03/14/17 08:00 03/14/17 07:25 03/14/17 07:25 03/14/17 07:25 - Medications Medications: Current Medications Acetaminophen (Tylenol 325mg Tab) 650 mg PO Q6 PRN PRN Reason: Headache Last Admin: 03/14/17 13:00 Dose: 650 mg Acyclovir 500 mg/ Sodium (Chloride) 100 mls @ 100 mls/hr IV Q8H [facility] Last Admin: 03/14/17 12:27 Dose: 100 mls/hr Ceftriaxone Sodium 2 gm/ (Sodium Chloride) 100 mls @ 100 mls/hr IVPB Q12H [facility] Last Admin: 03/14/17 06:02 Dose: 100 mls/hr Ondansetron HCl (Zofran Inj) 4 mg IVP Q8 PRN PRN Reason: Nausea/Vomiting Last Admin: 03/12/17 12:58 Dose: 4 mg - Labs Labs: 03/14/17 11:41 03/14/17 11:41 - Constitutional Appears: Non-toxic, No Acute Distress - Head Exam Head Exam: ATRAUMATIC, NORMAL INSPECTION, NORMOCEPHALIC - Eye Exam Eye Exam: EOMI - ENT Exam ENT Exam: Mucous Membranes Moist - Neck Exam Neck Exam: Full ROM, Normal Inspection - Respiratory Exam Respiratory Exam: NORMAL BREATHING PATTERN. absent: Respiratory Distress - Cardiovascular Exam Cardiovascular Exam: +S1, +S2 - GI/Abdominal Exam GI & Abdominal Exam: Soft, Normal Bowel Sounds. absent: Tenderness - Extremities Exam Extremities Exam: Full ROM, Normal Inspection - Neurological Exam Neurological Exam: Alert, Awake, Oriented x3 - Psychiatric Exam Psychiatric exam: Normal Affect, Normal Mood - Skin Skin Exam: Dry, Intact, Normal Color, Warm Assessment and Plan - Assessment and Plan (Free Text) Assessment: This is a 21 yo female with pmh of migraines presenting with cc of headache, found to have viral meningitis 1. Viral meningitis -spinal tap performed -lymphocytic predominance -neurology consulted. recs appreciated -ID consulted. recs appreciated. -cont tylenol for fever -continue acyclovir 500 q 8 -cont ceftriaxone 2 g q 12 -vanco dc'd -zofran 4 q 8 -CSF, blood culture neg 2. Migraines -cont to monitor -tylenol for pain 3. GI/DVT ppx -regular diet -SCDs Discussed with Dr. Aguila -
--- NOTE | 2017-03-14 21:50 | CP.PCM.PN ---
Subjective - Date & Time of Evaluation Date of Evaluation: 03/14/17 Time of Evaluation: 12:00 - Subjective Subjective: clinically same Objective - Vital Signs/Intake and Output Vital Signs (last 24 hours): Temp Pulse Resp BP Pulse Ox 102.6 F H 107 H 18 113/73 100 03/14/17 20:59 03/14/17 16:00 03/14/17 16:00 03/14/17 16:00 03/14/17 16:00 Intake and Output: 03/14/17 03/15/17 18:59 06:59 Intake Total 100 Balance 100 - Medications Medications: Current Medications Acetaminophen (Tylenol 325mg Tab) 650 mg PO Q6 PRN PRN Reason: Headache Last Admin: 03/14/17 20:59 Dose: 650 mg Acyclovir 500 mg/ Sodium (Chloride) 100 mls @ 100 mls/hr IV Q8H [facility] Last Admin: 03/14/17 20:19 Dose: 100 mls/hr Ceftriaxone Sodium 2 gm/ (Sodium Chloride) 100 mls @ 100 mls/hr IVPB Q12H [facility] Last Admin: 03/14/17 17:21 Dose: 100 mls/hr Ondansetron HCl (Zofran Inj) 4 mg IVP Q8 PRN PRN Reason: Nausea/Vomiting Last Admin: 03/12/17 12:58 Dose: 4 mg - Labs Labs: 03/14/17 11:41 03/14/17 11:41 - Constitutional Appears: Well - Head Exam Head Exam: ATRAUMATIC, NORMAL INSPECTION, NORMOCEPHALIC - Eye Exam Eye Exam: EOMI, Normal appearance, PERRL Pupil Exam: NORMAL ACCOMODATION, PERRL - ENT Exam ENT Exam: Mucous Membranes Moist, Normal Exam - Neck Exam Neck Exam: Full ROM, Normal Inspection. absent: Lymphadenopathy - Respiratory Exam Respiratory Exam: Decreased Breath Sounds - Cardiovascular Exam Cardiovascular Exam: REGULAR RHYTHM, +S1, +S2 - GI/Abdominal Exam GI & Abdominal Exam: Soft, Diminished Bowel Sounds - Rectal Exam Rectal Exam: Deferred
[2017-03-15] MEDS: Acyclovir 500 MG in Sodium Chloride 0.9% 100 ML IV SCH ×3 (03:26→21:33)
[2017-03-15] MEDS: cefTRIAXone 2 GM in Sodium Chloride 0.9% 100 ML IVPB SCH ×2 (05:00→17:04)
[2017-03-15 06:57] LABS: BASO % 0.9 % (0.0-2.0); EOS % 0.6 % (0.0-4.0); HEMATOCRIT 35.8 % (34.0-47.0); LYMPH # 2.2 K/uL (1.0-4.3); LYMPH % 46.5 % (20.0-40.0); MEAN CELL VOLUME 86.1 fL (81.0-99.0); MEAN CORPUSCULAR HEMOGLOBIN 29.4 pg (27.0-31.0); MEAN CORPUSCULAR HGB CONC 34.1 g/dL (33.0-37.0); MEAN PLATELET VOLUME 7.7 fL (7.2-11.7); MONO # 0.5 K/uL (0.0-0.8); MONO % 11.4 % (0.0-10.0); RED CELL DISTRIBUTION WIDTH 12.8 % (11.5-14.5); WHITE BLOOD COUNT 4.8 K/uL (4.8-10.8)
[2017-03-15 07:23] LABS: SPECIMEN SOURCE CSF
[2017-03-15 07:39] LABS: CHLORIDE 100 mmol/L (98-107)
[2017-03-15 07:40] LABS: POTASSIUM 3.5 mmol/L (3.6-5.2); SODIUM 135 mmol/L (132-148)
[2017-03-15 07:42] LABS: ALB/GLOB RATIO 1.4 (1.0-2.1); ALKALINE PHOSPHATASE 27 U/L (38-126); ALT/SGPT 24 U/L (9-52); AST/SGOT 20 U/L (14-36); BILIRUBIN,TOTAL 0.5 mg/dL (0.2-1.3); BLOOD UREA NITROGEN 9 mg/dL (7-17); CARBON DIOXIDE 24 mmol/L (22-30); GFR AFRICAN-AMERICAN > 60; TOTAL PROTEIN 6.5 g/dL (6.3-8.3)
[2017-03-15 07:43] LABS: CALCIUM 8.4 mg/dl (8.6-10.4); GLUCOSE,RANDOM 93 mg/dL (65-105); MAGNESIUM 1.9 mg/dL (1.6-2.3); PHOSPHOROUS 3.7 mg/dL (2.5-4.5)
[2017-03-15] MEDS ORDERED: POLYETHYLENE GLYCOL 3350 17 GM/Dose PACKET PO ONE (07:52)
[2017-03-15 07:57] LABS: LYME DISEASE SCREEN <0.90 index
[2017-03-15] MEDS ORDERED: Potassium Chloride 20 mEq ER Tab PO ONE (10:00)
--- NOTE | 2017-03-15 13:24 | CP.PCM.PN ---
Subjective - Date & Time of Evaluation Date of Evaluation: 03/15/17 Time of Evaluation: 08:00 - Subjective Subjective: PGY 3 Medicine Progress Note - Dr. Jaxon Aguila's Service: Patient seen and examined this AM. Patient reports abdominal pain this AM. She also has nausea and vomiting. Patient has been unable to tolerated the small meals she's had today. She feels "gassy". She has not had a BM in 5 days. She does not report straining. Admits to fever overnight. She also admits to body aches and pain. No headache or visual changes. She does report some dizziness now. Objective - Vital Signs/Intake and Output Vital Signs (last 24 hours): Temp Pulse Resp BP Pulse Ox 97.2 F L 79 20 115/75 96 03/15/17 08:52 03/15/17 08:52 03/15/17 08:52 03/15/17 08:52 03/15/17 08:52 - Medications Medications: Current Medications Acetaminophen (Tylenol 325mg Tab) 650 mg PO Q6 PRN PRN Reason: Headache Last Admin: 03/14/17 20:59 Dose: 650 mg Docusate Sodium (Colace) 100 mg PO DAILY [facility] Last Admin: 03/15/17 10:51 Dose: 100 mg Famotidine (Pepcid) 20 mg PO BID [facility] Acyclovir 500 mg/ Sodium (Chloride) 100 mls @ 100 mls/hr IV Q8H [facility] Last Admin: 03/15/17 12:32 Dose: 100 mls/hr Ceftriaxone Sodium 2 gm/ (Sodium Chloride) 100 mls @ 100 mls/hr IVPB Q12H [facility] Last Admin: 03/15/17 05:00 Dose: 100 mls/hr Ondansetron HCl (Zofran Inj) 4 mg IVP Q8 PRN PRN Reason: Nausea/Vomiting Last Admin: 03/15/17 12:31 Dose: 4 mg - Labs Labs: 03/15/17 06:48 03/15/17 06:48 - Constitutional Appears: No Acute Distress - Head Exam Head Exam: NORMAL INSPECTION, NORMOCEPHALIC - Eye Exam Eye Exam: EOMI, Normal appearance - ENT Exam ENT Exam: Mucous Membranes Moist - Neck Exam Neck Exam: Full ROM, Normal Inspection - Respiratory Exam Respiratory Exam: Clear to Ausculation Bilateral, NORMAL BREATHING PATTERN - Cardiovascular Exam Cardiovascular Exam: REGULAR RHYTHM - GI/Abdominal Exam GI & Abdominal Exam: Soft. absent: Distended, Tenderness - Extremities Exam Extremities Exam: Full ROM, Normal Inspection - Back Exam Back Exam: NORMAL INSPECTION - Neurological Exam Neurological Exam: Alert, Awake, Oriented x3 - Skin Skin Exam: Normal Color, Warm Assessment and Plan (1) Meningitis Assessment & Plan: LP performed. Patient with viral meningitis. CSF with negaitve cultures X4 days. CSF showes lymphocytic predominance with elevated protein. HIV, HSV and Lyme all negative. Head CT negative. Neurology following- Dr. Beatty- help appreciated. As per Dr. Beatty, likely viral meningitis. Continue with anti-virals. ID following- Dr. Santizo- help appreciated. * continue acyclovir 500 IVPB q 8- DAY 4 * cont ceftriaxone 2 g IVPB q 12- Day 4 Status: Acute (2) Nausea and vomiting Assessment & Plan: Patient with intractable nausea and vomiting and abdominal pain this AM. Abdominal pain resolved in the afternoon. Patient given bowel regimen today. Awaiting patient to have BM, since she has not had one in 5 days. Diet changed to bland. Obstruction series ordered. * Miralax X 1 given today * Started Colace daily * Started Pepcid 20 mg PO BID * Start IVF NS at 100 cc/hr * Continue Zofran PRN Status: Acute (3) Constipation Assessment & Plan: Abdominal pain resolved. F/U obstruction series ordered. * Miralax X 1 given today * Colace daily started Status: Acute (4) Prophylactic measure Assessment & Plan: Pepcid 20 mg PO BID SCD's all managment as per Dr. Jaxon Aguila. Status: Acute
--- NOTE | 2017-03-15 17:50 | RAD ---
PROCEDURE: Radiographs of the chest and abdomen (obstructive series) HISTORY: intractable n/v, abdominal pain COMPARISON: No prior. TECHNIQUE: AP radiograph of the chest, with upright and supine radiographs of the abdomen. FINDINGS: CHEST: Lungs: Clear. Cardiovascular: Normal size heart. No pulmonary vascular congestion. Pleura: No pleural fluid. No pneumothorax. Other findings: None. ABDOMEN AND PELVIS: Bowel: Mildly dilated small bowel loops seen at the left mid abdomen. No evidence of high-grade bowel obstruction. Mildly dilated right colon. Free air: None. Bones: Unremarkable. Other findings: None. IMPRESSION: No evidence of acute pulmonary disease or subdiaphragmatic air. Mildly dilated small bowel loops seen at the left mid abdomen demonstrate mild wall thickening. No evidence of high-grade bowel obstruction. Mildly dilated right colon.
--- NOTE | 2017-03-15 21:15 | CP.PCM.PN ---
Subjective - Date & Time of Evaluation Date of Evaluation: 03/15/17 Time of Evaluation: 13:00 - Subjective Subjective: clinically same Objective - Vital Signs/Intake and Output Vital Signs (last 24 hours): Temp Pulse Resp BP Pulse Ox 103 F H 85 18 120/77 97 03/15/17 17:05 03/15/17 16:30 03/15/17 15:25 03/15/17 15:25 03/15/17 15:25 Intake and Output: 03/15/17 03/16/17 18:59 06:59 Intake Total 900 Balance 900 - Medications Medications: Current Medications Acetaminophen (Tylenol 325mg Tab) 650 mg PO Q6 PRN PRN Reason: Headache Last Admin: 03/15/17 17:05 Dose: 650 mg Docusate Sodium (Colace) 100 mg PO DAILY [facility] Last Admin: 03/15/17 10:51 Dose: 100 mg Famotidine (Pepcid) 20 mg PO BID [facility] Last Admin: 03/15/17 14:07 Dose: 20 mg Acyclovir 500 mg/ Sodium (Chloride) 100 mls @ 100 mls/hr IV Q8H [facility] Last Admin: 03/15/17 12:32 Dose: 100 mls/hr Ceftriaxone Sodium 2 gm/ (Sodium Chloride) 100 mls @ 100 mls/hr IVPB Q12H [facility] Last Admin: 03/15/17 17:04 Dose: 100 mls/hr Potassium Chloride 40 meq/ (Sodium Chloride) 1,020 mls @ 100 mls/hr IV .[id number] [facility] Stop: 03/15/17 23:59 Last Admin: 03/15/17 17:04 Dose: 100 mls/hr Sodium Chloride (Sodium Chloride 0.9%) 500 mls @ 100 mls/hr IV .Q5H [facility] Ondansetron HCl (Zofran Inj) 4 mg IVP Q8 PRN PRN Reason: Nausea/Vomiting Last Admin: 03/15/17 12:31 Dose: 4 mg - Labs Labs: 03/15/17 06:48 03/15/17 06:48
[2017-03-15] MEDS ORDERED: Potassium Chloride 10 mEq ER Tab PO STA (21:29)
[2017-03-15] MEDS ORDERED: Potassium Chloride 20 mEq ER Tab PO STA (21:34)
[2017-03-16] MEDS: Sodium Chloride 0.9% 500 ML IV SCH ×3 (00:26→10:00)
[2017-03-16] MEDS: Acyclovir 500 MG in Sodium Chloride 0.9% 100 ML IV SCH ×2 (03:41→12:28)
[2017-03-16] MEDS: cefTRIAXone 2 GM in Sodium Chloride 0.9% 100 ML IVPB SCH (05:23)
--- NOTE | 2017-03-16 06:55 | PCM.RRT ---
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 Patient found sitting style on floor, vomiting in bucket. - Neurological Status (Select all that apply): Alert, Responsive, Oriented, Verbal, Follows Commands - Respiratory Oxygen Delivery Method: Room Air - Constitutional Appears: No Acute Distress - Head Head Exam: ATRAUMATIC, NORMOCEPHALIC - Eyes Eye Exam: EOMI, Normal appearance - Respiratory Exam Respiratory Exam: NORMAL BREATHING PATTERN - Neurological Exam Neurological Exam: Alert, Awake, Oriented x3 - Extremities Exam Extremities Exam: Normal Inspection. absent: Tenderness Additional comments: LE - no tenderness to palpation on knees b/l. 5/5 strength b/l Plan - Assessment of Findings&Treatment Plan Fall - Patient found sitting style on ground by RN. Patient states she was walking back from the bathroom when she felt like she was about to vomit and she fell to the ground to begin vomit into a bin next to her bed. Patient states she hit her knees when she fell to the ground. She denies any pain. She is not tender to palpation. No pain with movement. 5/5 strength b/l. No x-ray indicated at this time. No medications indicated at this time. No vitals were taken during this code star.
[2017-03-16 07:35] LABS: BASO % 0.6 % (0.0-2.0); EOS # 0.1 K/uL (0.0-0.7); LYMPH # 1.2 K/uL (1.0-4.3); LYMPH % 23.5 % (20.0-40.0); MEAN CELL VOLUME 85.9 fL (81.0-99.0); MEAN CORPUSCULAR HGB CONC 33.7 g/dL (33.0-37.0); MEAN PLATELET VOLUME 7.5 fL (7.2-11.7); MONO # 0.4 K/uL (0.0-0.8); MONO % 8.1 % (0.0-10.0); NRBC % 0.1 % (0.0-2.0); RED CELL DISTRIBUTION WIDTH 12.7 % (11.5-14.5); WHITE BLOOD COUNT 5.2 K/uL (4.8-10.8)
[2017-03-16 08:19] LABS: CHLORIDE 98 mmol/L (98-107); SODIUM 132 mmol/L (132-148)
[2017-03-16 08:20] LABS: POTASSIUM 3.9 mmol/L (3.6-5.2)
[2017-03-16 08:22] LABS: ALB/GLOB RATIO 1.4 (1.0-2.1); ALKALINE PHOSPHATASE 30 U/L (38-126); AST/SGOT 19 U/L (14-36); BILIRUBIN,TOTAL 0.5 mg/dL (0.2-1.3); BLOOD UREA NITROGEN 9 mg/dL (7-17); CARBON DIOXIDE 19 mmol/L (22-30); GFR AFRICAN-AMERICAN > 60; GLUCOSE,RANDOM 87 mg/dL (65-105); PHOSPHOROUS 3.1 mg/dL (2.5-4.5); TOTAL PROTEIN 6.8 g/dL (6.3-8.3)
[2017-03-16 08:23] LABS: ALT/SGPT 24 U/L (9-52); CALCIUM 8.4 mg/dl (8.6-10.4); MAGNESIUM 1.8 mg/dL (1.6-2.3)
--- NOTE | 2017-03-16 10:37 | CT ---
PROCEDURE: CT HEAD WITHOUT CONTRAST. HISTORY: confusion COMPARISON: 03/16/2017 TECHNIQUE: Axial computed tomography images were obtained through the head/brain without intravenous contrast. Radiation dose: Total exam DLP = 660 mGy-cm. This CT exam was performed using one or more of the following dose reduction techniques: Automated exposure control, adjustment of the mA and/or kV according to patient size, and/or use of iterative reconstruction technique. FINDINGS: HEMORRHAGE: No intracranial hemorrhage. BRAIN: No mass effect or edema. No atrophy or chronic microvascular ischemic changes. VENTRICLES: Unremarkable. No hydrocephalus. CALVARIUM: Unremarkable. PARANASAL SINUSES: Unremarkable as visualized. No significant inflammatory changes. MASTOID AIR CELLS: Unremarkable as visualized. No inflammatory changes. OTHER FINDINGS: None. IMPRESSION: No acute intracranial abnormality. If focal neurologic deficit persists, consider MRI.
--- NOTE | 2017-03-16 10:42 | CP.PCM.PN ---
Subjective - Date & Time of Evaluation Date of Evaluation: 03/16/17 Time of Evaluation: 10:40 - Subjective Subjective: Progress note. Attending: Dr. Obi Aguila Pt seen and examined at bedside. No acute distress. Spoke to pt's mother and grandmother. Both saying that pt was very confused and disoriented and distressed this morning. On evaluation, pt is alert and oriented x3 and shows no signs of distress or confusion. Pt lying in bed comfortably. However, pt did not get much sleep overnight. Pt did have multiple fevers yesterday. Pt is currently afebrile. MRI of the brain ordered, Dr. Mccormack is covering neurologist. Dr. Beatty was only covering over the weekend. Objective - Vital Signs/Intake and Output Vital Signs (last 24 hours): Temp Pulse Resp BP Pulse Ox 99.3 F 90 20 137/90 99 03/16/17 08:07 03/16/17 08:07 03/16/17 08:07 03/16/17 08:07 03/16/17 08:07 - Medications Medications: Current Medications Acetaminophen (Tylenol 325mg Tab) 650 mg PO Q6 PRN PRN Reason: Headache Last Admin: 03/16/17 00:24 Dose: 650 mg Docusate Sodium (Colace) 100 mg PO DAILY [facility] Last Admin: 03/16/17 09:38 Dose: 100 mg Famotidine (Pepcid) 20 mg PO BID [facility] Last Admin: 03/16/17 09:38 Dose: 20 mg Acyclovir 500 mg/ Sodium (Chloride) 100 mls @ 100 mls/hr IV Q8H [facility] Last Admin: 03/16/17 03:41 Dose: 100 mls/hr Ceftriaxone Sodium 2 gm/ (Sodium Chloride) 100 mls @ 100 mls/hr IVPB Q12H [facility] Last Admin: 03/16/17 05:23 Dose: 100 mls/hr Sodium Chloride (Sodium Chloride 0.9%) 500 mls @ 100 mls/hr IV .Q5H [facility] Last Admin: 03/16/17 05:22 Dose: 100 mls/hr Ketorolac Tromethamine (Toradol) 15 mg IVP Q8 PRN PRN Reason: Pain Last Admin: 03/16/17 09:39 Dose: 15 mg Ondansetron HCl (Zofran Inj) 4 mg IVP Q8 PRN PRN Reason: Nausea/Vomiting Last Admin: 03/16/17 09:47 Dose: 4 mg - Labs Labs: 03/16/17 07:26 03/16/17 07:26 - Constitutional Appears: Non-toxic, No Acute Distress - Head Exam Head Exam: ATRAUMATIC, NORMAL INSPECTION, NORMOCEPHALIC - Eye Exam Eye Exam: EOMI - ENT Exam ENT Exam: Mucous Membranes Moist - Respiratory Exam Respiratory Exam: Clear to Ausculation Bilateral, NORMAL BREATHING PATTERN - Cardiovascular Exam Cardiovascular Exam: +S1, +S2 - GI/Abdominal Exam GI & Abdominal Exam: Soft, Normal Bowel Sounds. absent: Tenderness - Extremities Exam Extremities Exam: Full ROM, Normal Inspection - Neurological Exam Neurological Exam: Alert, Awake, Oriented x3 - Psychiatric Exam Psychiatric exam: Flat Affect - Skin Skin Exam: Dry, Intact, Normal Color, Warm Assessment and Plan - Assessment and Plan (Free Text) Assessment: This is a 21 yo female with past medical hx of migraines presenting with headache and neck stiffness, spinal tap performed, likely viral meningitis 1. Viral meningitis s/p spinal tap CSF showed lymphocytic predominance with elevated protein. HIV negative HSV and lyme serologies negative if other viral serologies negative, likely enterovirus MRI ordered Head CT negative, repeat head ct ordered for this morning Neurology following- it is Dr. Mccormack- Dr. Beatty was only covering this past weekend. ID following- Dr. Metzger - help appreciated. * continue acyclovir 500 IVPB q 8- DAY 5 * cont ceftriaxone 2 g IVPB q 12- Day 5 continue droplet precautions (2) Nausea and vomiting -X ray shows no evidence of obstruction -continue zofran for nausea -perhaps related to underlying meningitis -continue to monitor (3) Constipation -no sign of obstruction -continue colace -awaiting BM 4. Elevated prolactin -may be secondary to increased emotional/physical stress -MRI brain ordered -repeat prolactin tomorrow 5 GI/DVT ppx -continue pepcid daily -SCDs discussed with Dr. Aguila.
--- NOTE | 2017-03-16 11:04 | CP.PCM.PN ---
Subjective - Date & Time of Evaluation Date of Evaluation: 03/16/17 Time of Evaluation: 10:49 - Subjective Subjective: House Doctor Note Code Star called at 10:49, fall not seen. Patient had just come back from an exam and was going from her bed to the bathroom when she said she felt slightly lightheaded and fell onto her buttocks. She did not lose consciousness. She did not hit her head or any extremities. Patient denies any pain. Patient said she still feels slightly lightheaded. Blood pressure is 138/87, Pulse is 71, and O2 sat is 97% on RA. Patient says she just wants to go home. Patient denies chest pain, shortness of breath, abdominal pain, nausea or vomiting. Objective - Vital Signs/Intake and Output Vital Signs (last 24 hours): Temp Pulse Resp BP Pulse Ox 99.3 F 90 20 137/90 99 03/16/17 08:07 03/16/17 08:07 03/16/17 08:07 03/16/17 08:07 03/16/17 08:07 - Medications Medications: Current Medications Acetaminophen (Tylenol 325mg Tab) 650 mg PO Q6 PRN PRN Reason: Headache Last Admin: 03/16/17 00:24 Dose: 650 mg Docusate Sodium (Colace) 100 mg PO DAILY [facility] Last Admin: 03/16/17 09:38 Dose: 100 mg Famotidine (Pepcid) 20 mg PO BID [facility] Last Admin: 03/16/17 09:38 Dose: 20 mg Acyclovir 500 mg/ Sodium (Chloride) 100 mls @ 100 mls/hr IV Q8H [facility] Last Admin: 03/16/17 03:41 Dose: 100 mls/hr Ceftriaxone Sodium 2 gm/ (Sodium Chloride) 100 mls @ 100 mls/hr IVPB Q12H [facility] Last Admin: 03/16/17 05:23 Dose: 100 mls/hr Sodium Chloride (Sodium Chloride 0.9%) 500 mls @ 100 mls/hr IV .Q5H [facility] Last Admin: 03/16/17 05:22 Dose: 100 mls/hr Ketorolac Tromethamine (Toradol) 15 mg IVP Q8 PRN PRN Reason: Pain Last Admin: 03/16/17 09:39 Dose: 15 mg Ondansetron HCl (Zofran Inj) 4 mg IVP Q8 PRN PRN Reason: Nausea/Vomiting Last Admin: 03/16/17 09:47 Dose: 4 mg - Labs Labs: 03/16/17 07:26 03/16/17 07:26 - Constitutional Appears: Well, Non-toxic, No Acute Distress - Head Exam Head Exam: ATRAUMATIC, NORMAL INSPECTION, NORMOCEPHALIC - Eye Exam Eye Exam: EOMI, Normal appearance - ENT Exam ENT Exam: Mucous Membranes Moist - Respiratory Exam Respiratory Exam: Clear to Ausculation Bilateral, NORMAL BREATHING PATTERN. absent: Rales, Rhonchi, Wheezes, Respiratory Distress, Stridor - Cardiovascular Exam Cardiovascular Exam: REGULAR RHYTHM, RRR. absent: Gallop, Rubs, Murmur - GI/Abdominal Exam GI & Abdominal Exam: Soft, Normal Bowel Sounds - Extremities Exam Extremities Exam: Full ROM, Normal Inspection. absent: Pedal Edema - Neurological Exam Neurological Exam: Alert, Awake, Oriented x3 - Psychiatric Exam Psychiatric exam: Anxious - Skin Skin Exam: Intact, Normal Color, Warm Assessment and Plan - Assessment and Plan (Free Text) Assessment: Patient to call nursing staff when she would like to get up.
--- NOTE | 2017-03-16 13:21 | CP.PCM.CON ---
History of Present Illness - History of Present Illness History of Present Illness: dictated Past Patient History - Past Medical History & Family History Past Medical History?: Yes - Past Social History Smoking Status: Never Smoked - CARDIAC Hx Cardiac Disorders: No - PULMONARY Hx Respiratory Disorders: No - NEUROLOGICAL Hx Neurological Disorder: Yes Hx Migraine: Yes - HEENT Hx HEENT Problems: No - RENAL Hx Chronic Kidney Disease: No - ENDOCRINE/METABOLIC Hx Endocrine Disorders: No - HEMATOLOGICAL/ONCOLOGICAL Hx Blood Disorders: No - INTEGUMENTARY Hx Dermatological Problems: No - MUSCULOSKELETAL/RHEUMATOLOGICAL Hx Musculoskeletal Disorders: No Hx Falls: No - GASTROINTESTINAL Hx Gastrointestinal Disorders: Yes Other/Comment: has a hernia - GENITOURINARY/GYNECOLOGICAL Hx Genitourinary Disorders: No - PSYCHIATRIC Hx Psychophysiologic Disorder: No Hx Substance Use: No - SURGICAL HISTORY Hx Surgeries: No - ANESTHESIA Hx Anesthesia: No Hx Anesthesia Reactions: No Hx Malignant Hyperthermia: No Has any member of the family had a problem w/ anesthesia?: No Meds Allergies/Adverse Reactions: Allergies Allergy/AdvReac Type Severity Reaction Status Date / Time pumpkin Allergy Verified 03/11/17 13:47 - Medications Medications: Current Medications Acetaminophen (Tylenol 325mg Tab) 650 mg PO Q6 PRN PRN Reason: Headache Last Admin: 03/16/17 00:24 Dose: 650 mg Docusate Sodium (Colace) 100 mg PO DAILY [facility] Last Admin: 03/16/17 09:38 Dose: 100 mg Famotidine (Pepcid) 20 mg PO BID [facility] Last Admin: 03/16/17 09:38 Dose: 20 mg Acyclovir 500 mg/ Sodium (Chloride) 100 mls @ 100 mls/hr IV Q8H [facility] Last Admin: 03/16/17 12:28 Dose: 100 mls/hr Ceftriaxone Sodium 2 gm/ (Sodium Chloride) 100 mls @ 100 mls/hr IVPB Q12H [facility] Last Admin: 03/16/17 05:23 Dose: 100 mls/hr Sodium Chloride (Sodium Chloride 0.9%) 500 mls @ 100 mls/hr IV .Q5H [facility] Last Admin: 03/16/17 05:22 Dose: 100 mls/hr Ketorolac Tromethamine (Toradol) 15 mg IVP Q8 PRN PRN Reason: Pain Last Admin: 03/16/17 09:39 Dose: 15 mg Ondansetron HCl (Zofran Inj) 4 mg IVP Q8 PRN PRN Reason: Nausea/Vomiting Last Admin: 03/16/17 09:47 Dose: 4 mg Results - Vital Signs Recent Vital Signs: Last Vital Signs Temp 97.4 F L 03/16/17 10:50 Pulse 75 03/16/17 10:50 Resp 20 03/16/17 10:50 BP 138/87 03/16/17 10:50 Pulse Ox 97 03/16/17 10:50 - Labs Result Diagrams: 03/16/17 07:26 03/16/17 07:26 Labs: Laboratory Results - last 24 hr 03/16/17 03/16/17 03/16/17 07:26 07:26 10:05 WBC 5.2 RBC 4.31 Hgb 12.5 Hct 37.0 MCV 85.9 MCH 29.0 MCHC 33.7 RDW 12.7 Plt Count 238 MPV 7.5 Neut % (Auto) 66.8 Lymph % (Auto) 23.5 [place] % (Auto) 8.1 Eos % (Auto) 1.0 Baso % (Auto) 0.6 Neut # 3.5 Lymph # 1.2 [place] # 0.4 Eos # 0.1 Baso # 0.0 Sodium 132 Potassium 3.9 Chloride 98 Carbon Dioxide 19 L Anion Gap 19 BUN 9 Creatinine 0.6 L Est GFR ( Amer) > 60 Est GFR (Non-Af Amer) > 60 Random Glucose 87 Calcium 8.4 L Phosphorus 3.1 Magnesium 1.8 Total Bilirubin 0.5 AST 19 ALT 24 Alkaline Phosphatase 30 L Total Protein 6.8 Albumin 4.0 Globulin 2.8 Albumin/Globulin Ratio 1.4 TSH 3rd Generation 1.10 Prolactin 11.3 31.7 H
[2017-03-16] MEDS ORDERED: Iohexol 240 (50 ml) PO ONE (14:15)
--- NOTE | 2017-03-16 15:45 | MRI ---
PROCEDURE: MRI BRAIN WITHOUT CONTRAST HISTORY: meningoencephalitis COMPARISON: Comparison is made to the previous same-day CT of the head without contrast. TECHNIQUE: Multiplanar, multisequence MR images of the brain were obtained without intravenous contrast enhancement. FINDINGS: HEMORRHAGE: None DWI: No evidence of an acute or early subacute infarction. BRAIN PARENCHYMA: No mass effect or edema. No atrophy or chronic microvascular ischemic changes. VENTRICLES: Unremarkable. No hydrocephalus. CRANIUM: Unremarkable. ORBITS: Grossly unremarkable. PARANASAL SINUSES/MASTOIDS: Clear VASCULAR SYSTEM: Skull base flow voids intact. OTHER FINDINGS: None. IMPRESSION: No evidence of acute pathology in the brain. No evidence of mass lesion or abnormal signal in the brain parenchyma. If clinically warranted further assessment with post contrast enhanced MRI or CT of the brain may be obtained.
--- NOTE | 2017-03-16 16:36 | CP.PCM.PN ---
Subjective - Date & Time of Evaluation Date of Evaluation: 03/16/17 Time of Evaluation: 09:00 - Subjective Subjective: WAS NOT NOTIFIED OF FEVER OR FALL BY NURSING STAFF UNTIL DR JIN CALLED THIS AM all cultures negative neuro re-eval is in progress pt c/o tremors bourts of confusion earlier no fever today awake alert oriented family at the bedside Objective - Vital Signs/Intake and Output Vital Signs (last 24 hours): Temp Pulse Resp BP Pulse Ox 97.4 F L 72 20 138/87 97 03/16/17 10:50 03/16/17 12:00 03/16/17 10:50 03/16/17 10:50 03/16/17 10:50 Intake and Output: 03/16/17 03/16/17 06:59 18:59 Intake Total 1450 Balance 1450 - Medications Medications: Current Medications Acetaminophen (Tylenol 325mg Tab) 650 mg PO Q6 PRN PRN Reason: Headache Last Admin: 03/16/17 00:24 Dose: 650 mg Docusate Sodium (Colace) 100 mg PO DAILY [facility] Last Admin: 03/16/17 09:38 Dose: 100 mg Famotidine (Pepcid) 20 mg PO BID [facility] Last Admin: 03/16/17 09:38 Dose: 20 mg Sodium Chloride (Sodium Chloride 0.9%) 500 mls @ 100 mls/hr IV .Q5H [facility] Last Admin: 03/16/17 10:00 Dose: Not Given Ketorolac Tromethamine (Toradol) 15 mg IVP Q8 PRN PRN Reason: Pain Last Admin: 03/16/17 09:39 Dose: 15 mg Ondansetron HCl (Zofran Inj) 4 mg IVP Q8 PRN PRN Reason: Nausea/Vomiting Last Admin: 03/16/17 09:47 Dose: 4 mg - Labs Labs: 03/16/17 07:26 03/16/17 07:26 - Constitutional Appears: Non-toxic, Chronically Ill - Head Exam Head Exam: NORMOCEPHALIC - Eye Exam Eye Exam: PERRL. absent: Scleral icterus - ENT Exam ENT Exam: Mucous Membranes Dry - Neck Exam Neck Exam: absent: Lymphadenopathy - Respiratory Exam Respiratory Exam: Decreased Breath Sounds - Cardiovascular Exam Cardiovascular Exam: REGULAR RHYTHM - GI/Abdominal Exam GI & Abdominal Exam: Distended, Soft. absent: Tenderness - Rectal Exam Rectal Exam: Deferred - Exam Exam: NORMAL INSPECTION - Extremities Exam Extremities Exam: absent: Pedal Edema - Back Exam Back Exam: absent: CVA tenderness (L), CVA tenderness (R) - Neurological Exam Neurological Exam: Alert, Awake, Oriented x3 - Psychiatric Exam Psychiatric exam: Normal Mood - Skin Skin Exam: Dry Assessment and Plan (1) Headache Status: Acute (2) Meningitis Status: Acute - Assessment and Plan (Free Text) Assessment: all cultures negative HSV PCR neg in csf AWAIT MRI AND CT ABD D/C ROCEPHIN AND ACYCLOVIR ADD CEFEPIME RECULTURE
--- NOTE | 2017-03-16 17:46 | CP.PCM.CON ---
History of Present Illness - History of Present Illness History of Present Illness: Patient is a 21 year old with history of migraine who initially presented with headaches that were associated with vomiting. Patient was seen at [facility] prior to being admitted for the same complaint. Patient is currently being treated for viral meningitis. CONSTRUCTION MANAGEMENT INSTRUCTOR consulted for irregular vaginal bleeding. Patient's mother is at the bedside and reports that daughters last period ended approx 03/06/17. Started having vaginal spotting 2 days ago. Urine test negative. Currently reports bleeding is similar to beginning of menses. No other complaints at this time. Per the mother, patient is delirious and making bizarre comments. States that patient hasn't been sleeping. Patient is currently AAOx3. OB Hx: none CONSTRUCTION MANAGEMENT INSTRUCTOR Hx: LMP - 02/28/17 [place] - 13//7 days Currently sexually active Denies hx of pap smear Denies hx of STIs, fibroids, ovarian cysts Allergies: NKDA Medications: denies Medical Hx: Migraine Surgical Hx: denies Social Hx: denies tobacco, alcohol, drug use; college student, lives in dorm Family Hx: Mother - migraine Review of Systems - Cardiovascular Cardiovascular: absent: Chest Pain, Dyspnea - Gastrointestinal Gastrointestinal: Cramping, Nausea, Vomiting - Reproductive: Female Reproductive:Female: Abnormal Vaginal Bleeding, Pelvic Pain - Neurological Neurological: Confusion, Headaches, Weakness - Psychiatric Psychiatric: Anxiety, Behavioral Changes, Confusion Past Patient History - Past Medical History & Family History Past Medical History?: Yes - Past Social History Smoking Status: Never Smoked - CARDIAC Hx Cardiac Disorders: No - PULMONARY Hx Respiratory Disorders: No - NEUROLOGICAL Hx Neurological Disorder: Yes Hx Migraine: Yes - HEENT Hx HEENT Problems: No - RENAL Hx Chronic Kidney Disease: No - ENDOCRINE/METABOLIC Hx Endocrine Disorders: No - HEMATOLOGICAL/ONCOLOGICAL Hx Blood Disorders: No - INTEGUMENTARY Hx Dermatological Problems: No - MUSCULOSKELETAL/RHEUMATOLOGICAL Hx Musculoskeletal Disorders: No Hx Falls: No - GASTROINTESTINAL Hx Gastrointestinal Disorders: Yes Other/Comment: has a hernia - GENITOURINARY/GYNECOLOGICAL Hx Genitourinary Disorders: No - PSYCHIATRIC Hx Psychophysiologic Disorder: No Hx Substance Use: No - SURGICAL HISTORY Hx Surgeries: No - ANESTHESIA Hx Anesthesia: No Hx Anesthesia Reactions: No Hx Malignant Hyperthermia: No Has any member of the family had a problem w/ anesthesia?: No Meds Allergies/Adverse Reactions: Allergies Allergy/AdvReac Type Severity Reaction Status Date / Time pumpkin Allergy Verified 03/11/17 13:47 - Medications Medications: Current Medications Acetaminophen (Tylenol 325mg Tab) 650 mg PO Q6 PRN PRN Reason: Headache Last Admin: 03/16/17 00:24 Dose: 650 mg Docusate Sodium (Colace) 100 mg PO DAILY [facility] Last Admin: 03/16/17 09:38 Dose: 100 mg Famotidine (Pepcid) 20 mg PO BID [facility] Last Admin: 03/16/17 09:38 Dose: 20 mg Sodium Chloride (Sodium Chloride 0.9%) 500 mls @ 100 mls/hr IV .Q5H [facility] Last Admin: 03/16/17 10:00 Dose: Not Given Cefepime HCl 1 gm/ Dextrose 50 mls @ 100 mls/hr IVPB Q12H [facility] Ketorolac Tromethamine (Toradol) 15 mg IVP Q8 PRN PRN Reason: Pain Last Admin: 03/16/17 09:39 Dose: 15 mg Ondansetron HCl (Zofran Inj) 4 mg IVP Q8 PRN PRN Reason: Nausea/Vomiting Last Admin: 03/16/17 09:47 Dose: 4 mg Physical Exam - Constitutional Appears: Well, Toxic - Head Exam Head Exam: ATRAUMATIC, NORMAL INSPECTION - Eye Exam Eye Exam: EOMI, Normal appearance Pupil Exam: NORMAL ACCOMODATION - ENT Exam ENT Exam: Mucous Membranes Moist - Respiratory Exam Respiratory Exam: Clear to Auscultation Bilateral, NORMAL BREATHING PATTERN - Cardiovascular Exam Cardiovascular Exam: REGULAR RHYTHM, +S1, +S2 - GI/Abdominal Exam GI & Abdominal Exam: Soft. absent: Tenderness - Exam Additional comments: Patient unable to tolerate adequate pelvic exam No blood noted on pad at time of encounter, however mom reports changing mildly soaked pad previously - Extremities Exam Extremities exam: Positive for: normal inspection. Negative for: calf tenderness - Back Exam Back exam: NORMAL INSPECTION - Neurological Exam Neurological exam: Alert, Oriented x3 - Psychiatric Exam Psychiatric exam: Anxious - Skin Skin Exam: Dry, Normal Color, Warm Results - Vital Signs Recent Vital Signs: Last Vital Signs Temp 97.4 F L 03/16/17 10:50 Pulse 72 03/16/17 12:00 Resp 20 03/16/17 10:50 BP 138/87 03/16/17 10:50 Pulse Ox 97 03/16/17 10:50 - Labs Result Diagrams: 03/16/17 07:26 03/16/17 07:26 Labs: Laboratory Results - last 24 hr 03/16/17 03/16/17 03/16/17 07:26 07:26 10:05 WBC 5.2 RBC 4.31 Hgb 12.5 Hct 37.0 MCV 85.9 MCH 29.0 MCHC 33.7 RDW 12.7 Plt Count 238 MPV 7.5 Neut % (Auto) 66.8 Lymph % (Auto) 23.5 [place] % (Auto) 8.1 Eos % (Auto) 1.0 Baso % (Auto) 0.6 Neut # 3.5 Lymph # 1.2 [place] # 0.4 Eos # 0.1 Baso # 0.0 Sodium 132 Potassium 3.9 Chloride 98 Carbon Dioxide 19 L Anion Gap 19 BUN 9 Creatinine 0.6 L Est GFR ( Amer) > 60 Est GFR (Non-Af Amer) > 60 Random Glucose 87 Calcium 8.4 L Phosphorus 3.1 Magnesium 1.8 Total Bilirubin 0.5 AST 19 ALT 24 Alkaline Phosphatase 30 L Total Protein 6.8 Albumin 4.0 Globulin 2.8 Albumin/Globulin Ratio 1.4 TSH 3rd Generation 1.10 Prolactin 11.3 31.7 H Assessment & Plan - Assessment and Plan (Free Text) Assessment: 21 year old nulligravid female who is currently being treated for viral meningitis and is now with irregular vaginal bleeding. Plan: 1. Irregular Vaginal Bleeding - Hgb stable - Will order TVUS, f/u results - Pad count - No surgical intervention at this time as patient is hemodynamically stable - Continue to monitor - Medical management per primary team
[2017-03-16] MEDS ORDERED: Immune Globulin 50 MG/ML (OCTAGAM 5%) 10 GM/200 ML IV ONE (18:52)
--- NOTE | 2017-03-16 18:55 | CP.PCM.PN ---
Subjective - Date & Time of Evaluation Date of Evaluation: 03/16/17 Time of Evaluation: 11:40 - Subjective Subjective: clinically same febrile yesterday Objective - Vital Signs/Intake and Output Vital Signs (last 24 hours): Temp Pulse Resp BP Pulse Ox 98.0 F 96 H 18 136/93 H 99 03/16/17 15:05 03/16/17 15:05 03/16/17 15:05 03/16/17 15:05 03/16/17 15:05 Intake and Output: 03/16/17 03/16/17 06:59 18:59 Intake Total 1450 Balance 1450 - Medications Medications: Current Medications Acetaminophen (Tylenol 325mg Tab) 650 mg PO Q6 PRN PRN Reason: Headache Last Admin: 03/16/17 00:24 Dose: 650 mg Docusate Sodium (Colace) 100 mg PO DAILY [facility] Last Admin: 03/16/17 09:38 Dose: 100 mg Famotidine (Pepcid) 20 mg PO BID [facility] Last Admin: 03/16/17 09:38 Dose: 20 mg Sodium Chloride (Sodium Chloride 0.9%) 500 mls @ 100 mls/hr IV .Q5H [facility] Last Admin: 03/16/17 10:00 Dose: Not Given Cefepime HCl 1 gm/ Dextrose 50 mls @ 100 mls/hr IVPB Q12H [facility] Levetiracetam 500 mg/ Dextrose 105 mls @ 420 mls/hr IVPB Q12H [facility] Methylprednisolone 250 mg/ (Sodium Chloride) 100 mls @ 200 mls/hr IVPB Q6H [facility] Ketorolac Tromethamine (Toradol) 15 mg IVP Q8 PRN PRN Reason: Pain Last Admin: 03/16/17 09:39 Dose: 15 mg Ondansetron HCl (Zofran Inj) 4 mg IVP Q8 PRN PRN Reason: Nausea/Vomiting Last Admin: 03/16/17 09:47 Dose: 4 mg - Labs Labs: 03/16/17 07:26 03/16/17 07:26 Assessment and Plan - Assessment and Plan (Free Text) Plan: Patient is on IV antibiotic patient again seen by neurologist Dr. Perrin started on IVIG IV antibiotic Septic workup Serology Dr. gena Thakur called on the case today for the second opinion as patient clinically is deteriorating Spoke to the mother and the grandmother at length and share all reports on computer and showed l the reports including fever serologies CSF etcs ct scan Patient is also positive for cannabis drug urine drug screens Also spoke to the father at length Also spoke to Dr. Metzger Also spoke to Dr. Owens We will continue to observe the patient's May transfer the patient to the ICU currently ICU bed is full Patient encouraged to eat
[2017-03-16 18:58] LABS: EBV EA (D) AB IgG <9.00 U/mL (<9.00)
--- NOTE | 2017-03-16 19:36 | CP.PCM.PN ---
Subjective - Date & Time of Evaluation Date of Evaluation: 03/16/17 Time of Evaluation: 19:32 - Subjective Subjective: PATIENT SEEN WITH FAMILY PROGRESS IS DICTATED HER EXAM CONSISTENT WITH AUTO IMMUNE ENCEPHALITIS ( CHANGE IN MENTAL STATUS, DELIRIUM, PSYCHIATRIC SYMPTOMS. CSF PLEOCYTOSIS AND POSSIBLE SEIZURES) HIGH DOSE STEROIDS AND IVIG WITH KEPPRA I WILL CHECK EEG NO NEED LP NO WHICH IS NOT GOING TO HELP HER CHANGE HER MANAGEMENT EXTENDED DISCUSSION WITH HER MOM AND GM Objective - Vital Signs/Intake and Output Vital Signs (last 24 hours): Temp Pulse Resp BP Pulse Ox 98.0 F 96 H 18 136/93 H 99 03/16/17 15:05 03/16/17 15:05 03/16/17 15:05 03/16/17 15:05 03/16/17 15:05 Intake and Output: 03/16/17 03/17/17 18:59 06:59 Intake Total 1450 Balance 1450 - Medications Medications: Current Medications Acetaminophen (Tylenol 325mg Tab) 650 mg PO Q6 PRN PRN Reason: Headache Last Admin: 03/16/17 00:24 Dose: 650 mg Docusate Sodium (Colace) 100 mg PO DAILY [facility] Last Admin: 03/16/17 09:38 Dose: 100 mg Famotidine (Pepcid) 20 mg PO BID [facility] Last Admin: 03/16/17 19:08 Dose: Not Given Sodium Chloride (Sodium Chloride 0.9%) 500 mls @ 100 mls/hr IV .Q5H [facility] Last Admin: 03/16/17 10:00 Dose: Not Given Cefepime HCl 1 gm/ Dextrose 50 mls @ 100 mls/hr IVPB Q12H [facility] Last Admin: 03/16/17 19:08 Dose: Not Given Levetiracetam 500 mg/ Dextrose 105 mls @ 420 mls/hr IVPB Q12H [facility] Methylprednisolone 250 mg/ (Sodium Chloride) 100 mls @ 200 mls/hr IVPB Q6H [facility] Immune Globulin (Octagam 5%) 360 mls @ 27 mls/hr IV Q24H [facility] Stop: 03/21/17 09:19 Ketorolac Tromethamine (Toradol) 15 mg IVP Q8 PRN PRN Reason: Pain Last Admin: 03/16/17 09:39 Dose: 15 mg Ondansetron HCl (Zofran Inj) 4 mg IVP Q8 PRN PRN Reason: Nausea/Vomiting Last Admin: 03/16/17 09:47 Dose: 4 mg - Labs Labs: 03/16/17 07:26 03/16/17 07:26
--- NOTE | 2017-03-16 19:51 | CT ---
EXAM: CT Abdomen and Pelvis Without Intravenous Contrast EXAM DATE/TIME: Exam ordered 03/16/2017 1:19 PM CLINICAL HISTORY: 21 years old, female; Pain; Abdominal pain; Generalized; Additional info: Abdominal tenderness/wing TECHNIQUE: Axial computed tomography images of the abdomen and pelvis without intravenous contrast. All CT scans at this facility use one or more dose reduction techniques, viz.: automated exposure control; ma/kV adjustment per patient size (including targeted exams where dose is matched to indication; i.e. head); or iterative reconstruction technique. Coronal and sagittal reformatted images were created and reviewed. COMPARISON: No relevant prior studies available. FINDINGS: Lower thorax: No acute findings. ABDOMEN: Liver: Unremarkable. Gallbladder and bile ducts: Unremarkable. No calcified stones. No ductal dilation. Pancreas: Unremarkable. No ductal dilation. Spleen: Unremarkable. No splenomegaly. Adrenals: Unremarkable. No mass. Kidneys and ureters: Unremarkable. No obstructing stones. No hydronephrosis. Stomach and bowel: A large amount of stool is seen in the ascending and proximal transverse colon. A small amount of stool seen in the descending and rectosigmoid colon. No mucosal thickening. Appendix: The appendix is not seen as a separate structure due to paucity of abdominal fat. PELVIS: Bladder: Unremarkable. No stones. Reproductive: Unremarkable as visualized. ABDOMEN and PELVIS: Intraperitoneal space: Unremarkable. No free air. No significant fluid collection. Bones/joints: No acute fracture. No dislocation. Soft tissues: Unremarkable. Vasculature: Unremarkable. No abdominal aortic aneurysm. Lymph nodes: Unremarkable. No enlarged lymph nodes. IMPRESSION: 1. No acute findings. 2. The appendix is not seen as a separate structure due to paucity of abdominal fat. No inflammatory changes noted in the region of the cecum
[2017-03-16] MEDS ORDERED: Immune Globulin 50 MG/ML (OCTAGAM 5%) 10 GM/200 ML IV SCH (20:00)
--- NOTE | 2017-03-16 20:00 | US ---
EXAM: US Pelvis Complete, Transabdominal US Pelvis, Transvaginal CLINICAL HISTORY: 21 years old, female; Signs and symptoms; Other: Vag bleed; Additional info: Vaginal bleeding TECHNIQUE: Real-time transabdominal and transvaginal pelvic ultrasound (complete) with image documentation. Transvaginal imaging was used for better evaluation of the endometrium and adnexa. COMPARISON: No relevant prior studies available. FINDINGS: Uterus/cervix: The uterus measures 7.2 x 3.2 x 4.5 cm. The endometrial stripe measures 3 mm. Right ovary: The right ovary measures 3.3 x 1.9 x 2.5 cm. Subcentimeter follicles are present. Blood flow is demonstrated in the right ovary on color Doppler examination. Left ovary: The left ovary measures 2.7 x 1.9 x 2.0 cm. Subcentimeter follicles are present. Blood flow seen in the left ovary on color Doppler examination. Free fluid: No free fluid. Bladder: Unremarkable as visualized. Wall is normal thickness for degree of distention. IMPRESSION: No acute findings. EXAM: US Pelvis, Transvaginal EXAM DATE/TIME: Exam ordered 03/16/2017 5:30 PM CLINICAL HISTORY: 21 years old, female; Signs and symptoms; Other: Vag bleed; Additional info: Vaginal bleeding TECHNIQUE: Real-time transvaginal pelvic ultrasound (complete) with image documentation. Transvaginal imaging was used for better evaluation of the endometrium and adnexa. COMPARISON: No relevant prior studies available. FINDINGS: Uterus/cervix: The endometrial stripe measures 5 mm. The uterus measures 6.9 x 2.8 x 5.2 cm. Right ovary: The right ovary measures 2.5 x 1.8 x 2.6 cm. Subcentimeter follicles are present. Blood flow is seen in the right ovary on color Doppler examination. Left ovary: The left ovary measures 3.1 x 1.8 x 2.3 cm. Polyp subcentimeter follicles are present. Blood flow is seen in the left ovary on color Doppler examination. Free fluid: No free fluid. Bladder: Empty bladder which cannot be evaluated with this probe. IMPRESSION: No acute findings.
--- NOTE | 2017-03-16 22:40 | PN ---
DATE: LOCATION: Room #667, bed 1. REASON FOR FOLLOWUP EVALUATION: Change in mental status and meningitis. SUBJECTIVE: The patient was initially seen in my absence by Dr. David Beatty and been worked up for meningitis including spinal tap, which showed significant pleocytosis and ID consult was called in, been on antiviral and broad-spectrum antibiotic were given. The patient has been stable during those days and history of two to three times followed at the bed with no reason. Today, she did have some fever, she did have some change in mental status. Following this, family witnessed that she believe that she is and the workup including CAT scan is going to kill her baby. This whole symptoms which is not appropriate and the patient also subject to blindness and flickering of the eyelids and tremor all over the body with nausea and vomiting episodes. The above episode being witnessed by me. During the whole period, the patient was oriented. She follows commands and however she is claiming unexplained pain all over the body. Following these symptoms, the patient was scheduled to have MRI of the brain with the gadolinium, which was reported as well as reviewed by me. No enhancing lesion or focal lesions were noted. The patient did have blood work prolactin level, which was done prior to the symptoms this morning around 7 o'clock, which was normal and following the episodes of change in mental status and tremor, the patient did have raised prolactin level to 31. PHYSICAL EXAMINATION: GENERAL: The patient is examined in the presence of family members. The patient is photophobic, could not be able to open her eyes, and possibly opening her eyes. VITAL SIGNS: Her current vital signs: Blood pressure 136/93, mean artery pressure of 107, respiratory rate 18, temperature 98.0 with a pulse rate of 96. The patient is not febrile at all during those days. The patient does not show any evidence of possible bacterial meningitis. HEENT: The vision is intact. Pupils are reactive to light. Extraocular movements are normal. No facial asymmetry. NEUROLOGIC: She is moving all four extremities against the gravity. Deep tendon reflexes. The patient could not able to tolerate tap on her body. Plantars are mute. Respond to pain. Symmetrical on both sides. Hypersensitive to touch on pain. The patient does not have any meningeal sign suggestive of Kernig's sign, and Brudzinski's sign at present. LABORATORY DATA: The workup as stated above the MRI findings and CT of the head also reported as negative. Today's blood workup, WBC 5.2, hemoglobin 12.5, hematocrit 37.0, platelets 238. Sodium 132, potassium 3.9, chloride 98, bicarbonate 19, BUN 9, creatinine 0.6, GFR more than 60, calcium 8.4, alkaline phosphatase is 30, TSH 1.10. Lyme serology negative. Infectious mono assay negative. CSF findings, which was reported on 03/11/2017 showed appearance is colorless. CSF WBC 158, RBC 4, neutrophils 2, lymphocyte predominance, which is at 92, monos are 4, and CSF total protein is 103. MEDICATIONS: Currently, she is on medication of acyclovir and cefepime. 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 The patient also have no other possible causes that could explain her current symptoms. Considering this autoimmune encephalitis, the patient should be placed on high dose steroids with intravenous immunoglobulin. The patient should be kept on IV fluids with recommended antibiotics as per ID. Repeat spinal tap, which is not going to help her at present. The patient's symptoms does not show any evidence of bacterial meningitis and whole symptoms are consistent with the viral versus autoimmune encephalitis. For viral cause, already she is on acyclovir. The patient is also scheduled to have electroencephalogram to rule out any temporal seizures or any focal slowing. I also placed her on Keppra 500 mg twice a day. The patient's condition is being discussed with her family members for more than 30 minutes. The patient will be followed closely with you. Chago Mccormack MD SH[facility]
--- NOTE | 2017-03-17 00:39 | CON ---
INFECTIOUS DISEASE SECOND OPINION CONSULTATION REFERRED BY: Dax Aguila MD HISTORY OF PRESENT ILLNESS: This patient is a 21-year-old female. She was in single room when I saw her and with apparent infection precaution. She has a history of migraine and she came in with fever and stiff neck and had an LP done. She also had some nausea and stuffy nose. She has been on treatment for viral meningitis that has been spiking temps and has been confused and also, was found sitting on the floor at one time and she underwent LP. The LP showed 92% lymphocytes and WBC was 153, protein was 103 and she was on Rocephin and acyclovir when I saw her and she did say that she feels generalized weakness, but no localized weakness. She was alert, awake when I saw her this morning around 12:00 and she was able to communicate. She does suffer from migraines and she says since she has been periods she has this migraines. She was also seen by [employer] for irregular periods; however, her urine test was negative on admission. She is sexually active with 1 partner and she has not had any STDs, she told me. She had no urinary problems. She has been constipated since she has been in the hospital. The only trip she had was to [place]. She also has a pet, a dog and she denied any insect bite recently or any travel to the park or any contact with birds. PAST MEDICAL HISTORY: Significant for migraine. PAST SURGICAL HISTORY: No previous surgeries. SOCIAL HISTORY: Negative for smoking. ALLERGIES: SHE IS ALLERGIC TO PUMPKIN, SHE SAYS. She does suffer from migraines. She had come to the emergency room on 03/09 with headaches and was thought to have migraine and she returned again on 03/11 with fever and headaches and that is the time they though of LP. FAMILY HISTORY: Noncontributory. REVIEW OF SYSTEMS: She takes NSAIDs for her migraine. She says the light was bothering her little bit, but she denied any ears, nose or throat problems at this time. She denied urinary symptoms. No chest problems reported. No cough. No cold. No nausea. No vomiting. She has been constipated otherwise and did complain of generalized weakness. MEDICATIONS: She was on acyclovir and Rocephin this morning when I saw her, but since then, the medication has been changed to cefepime 1 g q. [address] Metzger and she is on Colace, Pepcid and she is on Toradol and Zofran. She did get Zofran at 9:47 it seems. PHYSICAL EXAMINATION VITAL SIGNS: T-max was 103 yesterday and today, T-max is 101 and blood pressure is 138/87, respirations are 20, pulse is 72. GENERAL: She is awake, alert. Denies any back pain and does have some headache. HEENT: Head is atraumatic. Pupils are reacting to light. Eye movements are unremarkable. Face appears symmetrical. Tongue is moist. NECK: Supple. LUNGS: Clear. No crackles or rales present. HEART: S1 and S2 is regular. ABDOMEN: When I tried to feel the abdomen, she was having voluntary guarding and she was wincing a lot and it was diffuse tenderness that I felt. Bowel sounds were decreased. EXTREMITIES: No edema, clubbing or cyanosis. She was moving all her extremities and CSF findings have come back. LABORATORY DATA: Came back positive. White count is 5.2, hemoglobin 12.5, hematocrit 37, platelet count is 238; white count was 3.5 at that time and sodium is 132, potassium 3.9, chloride is 98, CO2 is 19, BUN is 9, creatinine 0.8. Urine shows UA is negative. She had CSF which showed WBC 158, RBC was 4, neutrophils were only 2, lymphocytes were 92 and monos were 4, total proteins were 103 and glucose was 46 and there was lot of proteins, however, lymphocytic predominant. The serology has come back with HSV is not detected, 1 and 2. HIV 1 and 2 is negative in the serum. Infectious mono is negative. Flu is negative. Lyme is negative. She also had an MRI, CT head, which are all negative at this time and I have also ordered abdominal CAT scan and pelvic CAT scan as she did have abdominal pain and was tender in the abdomen, etiology is unclear and she maybe spiking temps because of that, so we will follow with Dr. Metzger. KUB report on 03/15 shows mildly dilated small bowel loops in left mid abdomen, no evidence of high-grade obstruction, mildly dilated right colon. We will follow. She did have what looks like viral meningitis and may have some other pathology going on in the abdomen, so she is still on IV antibiotics and we are awaiting CAT scan. Maged Jain MD
[2017-03-17] MEDS: Sodium Chloride 0.9% 500 ML IV SCH ×4 (02:02→16:54)
[2017-03-17] MEDS: IMMUNE GLOBULIN 50 MG/ML IV SCH ×2 (02:14→20:47)
[2017-03-17 08:15] LABS: RBC URINE 2 /hpf (0-3); URINE BILIRUBIN NEGATIVE (NEGATIVE); URINE BLOOD 1+ (NEGATIVE); URINE COLOR Straw (YELLOW); URINE GLUCOSE (UA) NORMAL (Normal); URINE KETONE 1+ mg/dL (NEGATIVE); URINE LEUKOCYTE ESTERASE NEG Leu/uL (Negative); URINE PROTEIN NEGATIVE (NEGATIVE); URINE UROBILINOGEN NORMAL mg/dL (0.2-1.0); WBC URINE < 1 /hpf (0-5)
--- NOTE | 2017-03-17 08:28 | CP.PCM.PN ---
<ROSETTE MAIN - Last Filed: 03/17/17 08:23> Subjective - Date & Time of Evaluation Date of Evaluation: 03/17/17 Time of Evaluation: 08:23 - Subjective Subjective: painter spray Progress Note: Pt seen and examined at bedside. Pt denies any acute overnight events. Pt states that she has used 2 pads since yesterday with only minimal spotting. Pt is OOB to bathroom. Pt denies N/V/D, CP, SOB, fever, chills, abdominal/pelvic pain, or dysuria. Objective - Vital Signs/Intake and Output Vital Signs (last 24 hours): Temp Pulse Resp BP Pulse Ox 97.5 F L 114 H 20 123/87 96 03/17/17 04:50 03/17/17 04:50 03/17/17 04:50 03/17/17 04:50 03/16/17 23:25 - Medications Medications: Current Medications Acetaminophen (Tylenol 325mg Tab) 650 mg PO Q6 PRN PRN Reason: Headache Last Admin: 03/16/17 00:24 Dose: 650 mg Docusate Sodium (Colace) 100 mg PO DAILY [facility] Last Admin: 03/16/17 09:38 Dose: 100 mg Famotidine (Pepcid) 20 mg PO BID [facility] Last Admin: 03/16/17 19:08 Dose: Not Given Sodium Chloride (Sodium Chloride 0.9%) 500 mls @ 100 mls/hr IV .Q5H [facility] Last Admin: 03/17/17 06:19 Dose: Not Given Cefepime HCl 1 gm/ Dextrose 50 mls @ 100 mls/hr IVPB Q12H [facility] Last Admin: 03/17/17 06:31 Dose: 100 mls/hr Levetiracetam 500 mg/ Dextrose 105 mls @ 420 mls/hr IVPB Q12H [facility] Last Admin: 03/16/17 20:49 Dose: 420 mls/hr Methylprednisolone 250 mg/ (Sodium Chloride) 100 mls @ 200 mls/hr IVPB Q6H [facility] Last Admin: 03/17/17 01:18 Dose: 200 mls/hr Immune Globulin (Octagam 5%) 360 mls @ 27 mls/hr IV Q24H [facility] Stop: 03/21/17 09:19 Last Admin: 03/17/17 02:14 Dose: 27 mls/hr Ketorolac Tromethamine (Toradol) 15 mg IVP Q8 PRN PRN Reason: Pain Last Admin: 03/16/17 09:39 Dose: 15 mg Ondansetron HCl (Zofran Inj) 4 mg IVP Q8 PRN PRN Reason: Nausea/Vomiting Last Admin: 03/16/17 09:47 Dose: 4 mg Temazepam (Restoril) 15 mg PO HS PRN PRN Reason: Sleep Last Admin: 03/16/17 22:11 Dose: 15 mg - Labs Labs: 03/16/17 07:26 03/16/17 07:26 - Constitutional Appears: No Acute Distress - Head Exam Head Exam: ATRAUMATIC, NORMOCEPHALIC - Eye Exam Eye Exam: EOMI - ENT Exam ENT Exam: Mucous Membranes Moist - Respiratory Exam Respiratory Exam: Clear to Ausculation Bilateral. absent: Rales, Rhonchi, Wheezes - Cardiovascular Exam Cardiovascular Exam: RRR. absent: Gallop, Rubs, Murmur - GI/Abdominal Exam GI & Abdominal Exam: Soft. absent: Distended, Firm, Tenderness, Organomegaly, Rebound - Exam Additional comments: Speculum exam not performed. Pad dry with mild spotting. - Neurological Exam Neurological Exam: Alert, Awake, Oriented x3 - Psychiatric Exam Psychiatric exam: Normal Affect, Normal Mood - Skin Skin Exam: Dry, Intact, Normal Color, Warm Assessment and Plan - Assessment and Plan (Free Text) Assessment: 21 year old nulligravid female who is currently being treated for viral meningitis and is now with irregular vaginal bleeding. Plan: 1. Irregular Vaginal Bleeding - TVUS shows no active disease - Hgb stable - Pad count x2 since 03/16/17 - No surgical intervention at this time as patient is hemodynamically stable - Continue to monitor - Medical management per primary team Progress note by Kristofer Main DO PGY1 for attending, Dr. Ocasio. <Nhung Ocasio - Last Filed: 03/17/17 23:48> Objective - Vital Signs/Intake and Output Vital Signs (last 24 hours): Temp Pulse Resp BP Pulse Ox 97.3 F L 80 20 134/89 96 03/17/17 15:04 03/17/17 15:30 03/17/17 15:04 03/17/17 15:04 03/17/17 15:04 Intake and Output: 03/17/17 03/18/17 18:59 06:59 Intake Total 200 Balance 200 - Medications Medications: Current Medications Acetaminophen (Tylenol 325mg Tab) 650 mg PO Q6 PRN PRN Reason: Headache Last Admin: 03/16/17 00:24 Dose: 650 mg Docusate Sodium (Colace) 100 mg PO DAILY [facility] Last Admin: 03/17/17 09:45 Dose: 100 mg Famotidine (Pepcid) 20 mg PO BID [facility] Last Admin: 03/17/17 17:33 Dose: 20 mg Sodium Chloride (Sodium Chloride 0.9%) 500 mls @ 100 mls/hr IV .Q5H [facility] Last Admin: 03/17/17 16:54 Dose: 100 mls/hr Cefepime HCl 1 gm/ Dextrose 50 mls @ 100 mls/hr IVPB Q12H [facility] Last Admin: 03/17/17 17:32 Dose: 100 mls/hr Levetiracetam 500 mg/ Dextrose 105 mls @ 420 mls/hr IVPB Q12H [facility] Last Admin: 03/17/17 19:09 Dose: 420 mls/hr Methylprednisolone 250 mg/ (Sodium Chloride) 100 mls @ 200 mls/hr IVPB Q6H [facility] Last Admin: 03/17/17 20:48 Dose: 200 mls/hr Immune Globulin (Octagam 5%) 360 mls @ 27 mls/hr IV Q24H [facility] Stop: 03/21/17 09:19 Last Admin: 03/17/17 20:47 Dose: 27 mls/hr Ketorolac Tromethamine (Toradol) 15 mg IVP Q8 PRN PRN Reason: Pain Last Admin: 03/16/17 09:39 Dose: 15 mg Ondansetron HCl (Zofran Inj) 4 mg IVP Q8 PRN PRN Reason: Nausea/Vomiting Last Admin: 03/17/17 13:53 Dose: 4 mg Temazepam (Restoril) 15 mg PO HS PRN PRN Reason: Sleep Last Admin: 03/17/17 22:12 Dose: 15 mg - Labs Labs: 03/17/17 08:26 03/17/17 08:26 Attending/Attestation - Attestation I have personally seen and examined this patient.: Yes I have fully participated in the care of the patient.: Yes I have reviewed all pertinent clinical information, including history, physical exam and plan: Yes Notes (Text): 03/17/17 23:45 Patient was seen and evaluated in room 667A at approximately 2200 hours: I agree with the above progress note, physical findings, and assessment. Ultrasound was reviewed by me personally. Findings were reviewed with patient. Continue medical management, as per primary medical team Thank you for the pleasure of this consultation
[2017-03-17 08:42] LABS: BASO % 0.4 % (0.0-2.0); EOS % 0.1 % (0.0-4.0); HEMATOCRIT 39.7 % (34.0-47.0); LYMPH # 0.6 K/uL (1.0-4.3); LYMPH % 38.5 % (20.0-40.0); MEAN CELL VOLUME 86.5 fL (81.0-99.0); MEAN CORPUSCULAR HEMOGLOBIN 29.7 pg (27.0-31.0); MEAN CORPUSCULAR HGB CONC 34.4 g/dL (33.0-37.0); MEAN PLATELET VOLUME 7.2 fL (7.2-11.7); MONO # 0.1 K/uL (0.0-0.8); MONO % 4.2 % (0.0-10.0); NRBC % 0.4 % (0.0-2.0); RED CELL DISTRIBUTION WIDTH 13.1 % (11.5-14.5)
--- NOTE | 2017-03-17 08:49 | PN ---
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 PHYSICAL EXAMINATION: VITAL SIGNS: Blood pressure 123/87, mean arterial pressure of 99, respiratory rate 18, temperature 97.5. NEUROLOGIC: The patient is examined in the presence of her mother as well as grandmother. The patient slept good, easily arousable. She knows she is in the hospital. Mentation is normal, back to her regular baseline except a little bit tired of whole body. Examination, voluntary guarding of her neck. No meningismus. No Brudzinski's sign. No Kernig's sign. Cranial nerves are normal. Deep tendon reflexes are trace. Plantars are mute. 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 The patient has given high-dose steroids with immunoglobulins and Keppra 500 mg twice a day for her seizures (?). PLAN: 1. The patient had abdominal CT scan and pelvic CT scan, I will follow for any teratoma. 2. EEG to be done that has been followed. 3. Continue the present management and good hydration. 4. The patient received the blood workup as stated. 5. When medically stable, the patient will be scheduled to have FDG-PET scan to rule out any occult malignant process. The patient's condition has been well discussed. Reasonable time spent, almost 15 minutes at the bedside. Chago Mccormack MD
[2017-03-17 08:50] LABS: CHLORIDE 100 mmol/L (98-107); SODIUM 135 mmol/L (132-148)
[2017-03-17 08:51] LABS: POTASSIUM 4.3 mmol/L (3.6-5.2); WHITE BLOOD COUNT 1.6 K/uL (4.8-10.8)
[2017-03-17 08:52] LABS: GFR AFRICAN-AMERICAN > 60
[2017-03-17 08:53] LABS: ALB/GLOB RATIO 1.2 (1.0-2.1); ALKALINE PHOSPHATASE 33 U/L (38-126); ALT/SGPT 23 U/L (9-52); AST/SGOT 18 U/L (14-36); BILIRUBIN,TOTAL 0.7 mg/dL (0.2-1.3); BLOOD UREA NITROGEN 10 mg/dL (7-17); CALCIUM 8.9 mg/dl (8.6-10.4); CARBON DIOXIDE 22 mmol/L (22-30); GLUCOSE,RANDOM 173 mg/dL (65-105); PHOSPHOROUS 4.1 mg/dL (2.5-4.5); TOTAL PROTEIN 7.7 g/dL (6.3-8.3)
[2017-03-17 08:54] LABS: MAGNESIUM 2.1 mg/dL (1.6-2.3)
[2017-03-17 11:01] LABS: PROCALCITONIN SERUM 0.09 NG/ML (0.19-0.49)
--- NOTE | 2017-03-17 14:30 | CP.PCM.PN ---
Subjective - Date & Time of Evaluation Date of Evaluation: 03/17/17 Time of Evaluation: 14:25 - Subjective Subjective: Progress note. Attending: Dr. Obi Aguila Pt seen and examined at bedside. No acute distress. Pt lying in bed, comfortably. Says pain is better and was able to sleep better. Did have some trouble answering questions about location and date. Was able to be reoriented however. No fever past 24 hours. Being treated now with IV IG and IV keppra, neuro, ID, [facility]ULFATE following. Objective - Vital Signs/Intake and Output Vital Signs (last 24 hours): Temp Pulse Resp BP Pulse Ox 97.3 F L 87 20 130/80 96 03/17/17 08:58 03/17/17 08:58 03/17/17 08:58 03/17/17 08:58 03/17/17 08:58 Intake and Output: 03/17/17 03/17/17 06:59 18:59 Intake Total 510 Balance 510 - Medications Medications: Current Medications Acetaminophen (Tylenol 325mg Tab) 650 mg PO Q6 PRN PRN Reason: Headache Last Admin: 03/16/17 00:24 Dose: 650 mg Docusate Sodium (Colace) 100 mg PO DAILY [facility] Last Admin: 03/17/17 09:45 Dose: 100 mg Famotidine (Pepcid) 20 mg PO BID [facility] Last Admin: 03/17/17 09:45 Dose: 20 mg Sodium Chloride (Sodium Chloride 0.9%) 500 mls @ 100 mls/hr IV .Q5H [facility] Last Admin: 03/17/17 06:19 Dose: Not Given Cefepime HCl 1 gm/ Dextrose 50 mls @ 100 mls/hr IVPB Q12H [facility] Last Admin: 03/17/17 06:31 Dose: 100 mls/hr Levetiracetam 500 mg/ Dextrose 105 mls @ 420 mls/hr IVPB Q12H [facility] Last Admin: 03/17/17 08:30 Dose: 420 mls/hr Methylprednisolone 250 mg/ (Sodium Chloride) 100 mls @ 200 mls/hr IVPB Q6H [facility] Last Admin: 03/17/17 13:52 Dose: 200 mls/hr Immune Globulin (Octagam 5%) 360 mls @ 27 mls/hr IV Q24H [facility] Stop: 03/21/17 09:19 Last Admin: 03/17/17 02:14 Dose: 27 mls/hr Ketorolac Tromethamine (Toradol) 15 mg IVP Q8 PRN PRN Reason: Pain Last Admin: 03/16/17 09:39 Dose: 15 mg Ondansetron HCl (Zofran Inj) 4 mg IVP Q8 PRN PRN Reason: Nausea/Vomiting Last Admin: 03/17/17 13:53 Dose: 4 mg Temazepam (Restoril) 15 mg PO HS PRN PRN Reason: Sleep Last Admin: 03/16/17 22:11 Dose: 15 mg - Labs Labs: 03/17/17 08:26 03/17/17 08:26 - Constitutional Appears: Non-toxic, No Acute Distress, Confused - Head Exam Head Exam: ATRAUMATIC, NORMAL INSPECTION, NORMOCEPHALIC - Eye Exam Eye Exam: EOMI - ENT Exam ENT Exam: Mucous Membranes Moist - Respiratory Exam Respiratory Exam: NORMAL BREATHING PATTERN. absent: Respiratory Distress - Cardiovascular Exam Cardiovascular Exam: +S1, +S2 - GI/Abdominal Exam GI & Abdominal Exam: Soft, Normal Bowel Sounds. absent: Tenderness - Extremities Exam Extremities Exam: Full ROM - Neurological Exam Neurological Exam: Alert, Awake, CN II-XII Intact - Psychiatric Exam Psychiatric exam: Flat Affect - Skin Skin Exam: Dry, Intact, Normal Color, Warm Assessment and Plan - Assessment and Plan (Free Text) Assessment: This is a 21 yo female with past medical hx of migraines presenting with headache and neck stiffness, spinal tap performed, likely viral meningitis 1. Viral meningitis s/p spinal tap CSF showed lymphocytic predominance with elevated protein. HIV negative HSV and lyme serologies negative if other viral serologies negative, likely enterovirus MRI negative EEG pending Head CT negative, repeat head ct negative Neurology following- it is Dr. Mccormack- Dr. Beatty was only covering this past weekend. ID following- Dr. Metzger - help appreciated. * IV acyclovir has been discontinued in favor of immune globulin and keppra * -IV methprednisolone added * cont cefepime * IV IG and IV keppra have been added * Second ID consult placed with Dr. Jain continue droplet precautions (2) Nausea and vomiting -X ray shows no evidence of obstruction -continue zofran for nausea -perhaps related to underlying meningitis -continue to monitor (3) Constipation -no sign of obstruction -continue colace -awaiting BM 4. Elevated prolactin -may be secondary to increased emotional/physical stress -MRI brain ordered -repeat prolactin back in normal range 5 GI/DVT ppx -continue pepcid daily -SCDs discussed with Dr. Aguila.
[2017-03-17 16:04] LABS: RAPID PLASMA REAGIN NONREACTIVE (NONREACTIVE)
--- NOTE | 2017-03-17 17:18 | CP.PCM.PN ---
Subjective - Date & Time of Evaluation Date of Evaluation: 03/17/17 Time of Evaluation: 08:00 - Subjective Subjective: awake alert no distress no nucal rigidity no fever c/o headache Objective - Vital Signs/Intake and Output Vital Signs (last 24 hours): Temp Pulse Resp BP Pulse Ox 97.3 F L 88 20 134/89 96 03/17/17 15:04 03/17/17 15:04 03/17/17 15:04 03/17/17 15:04 03/17/17 15:04 Intake and Output: 03/17/17 03/17/17 06:59 18:59 Intake Total 510 200 Balance 510 200 - Medications Medications: Current Medications Acetaminophen (Tylenol 325mg Tab) 650 mg PO Q6 PRN PRN Reason: Headache Last Admin: 03/16/17 00:24 Dose: 650 mg Docusate Sodium (Colace) 100 mg PO DAILY [facility] Last Admin: 03/17/17 09:45 Dose: 100 mg Famotidine (Pepcid) 20 mg PO BID [facility] Last Admin: 03/17/17 09:45 Dose: 20 mg Sodium Chloride (Sodium Chloride 0.9%) 500 mls @ 100 mls/hr IV .Q5H [facility] Last Admin: 03/17/17 16:54 Dose: 100 mls/hr Cefepime HCl 1 gm/ Dextrose 50 mls @ 100 mls/hr IVPB Q12H [facility] Last Admin: 03/17/17 06:31 Dose: 100 mls/hr Levetiracetam 500 mg/ Dextrose 105 mls @ 420 mls/hr IVPB Q12H [facility] Last Admin: 03/17/17 08:30 Dose: 420 mls/hr Methylprednisolone 250 mg/ (Sodium Chloride) 100 mls @ 200 mls/hr IVPB Q6H [facility] Last Admin: 03/17/17 13:52 Dose: 200 mls/hr Immune Globulin (Octagam 5%) 360 mls @ 27 mls/hr IV Q24H [facility] Stop: 03/21/17 09:19 Last Admin: 03/17/17 02:14 Dose: 27 mls/hr Ketorolac Tromethamine (Toradol) 15 mg IVP Q8 PRN PRN Reason: Pain Last Admin: 03/16/17 09:39 Dose: 15 mg Ondansetron HCl (Zofran Inj) 4 mg IVP Q8 PRN PRN Reason: Nausea/Vomiting Last Admin: 03/17/17 13:53 Dose: 4 mg Temazepam (Restoril) 15 mg PO HS PRN PRN Reason: Sleep Last Admin: 03/16/17 22:11 Dose: 15 mg - Labs Labs: 03/17/17 08:26 03/17/17 08:26 - Constitutional Appears: Non-toxic, Chronically Ill - Head Exam Head Exam: NORMOCEPHALIC - Eye Exam Eye Exam: PERRL. absent: Scleral icterus - ENT Exam ENT Exam: Mucous Membranes Dry - Neck Exam Neck Exam: absent: Lymphadenopathy - Respiratory Exam Respiratory Exam: Clear to Ausculation Bilateral - Cardiovascular Exam Cardiovascular Exam: REGULAR RHYTHM, +S1, +S2 - GI/Abdominal Exam GI & Abdominal Exam: Distended, Soft - Rectal Exam Rectal Exam: Deferred - Exam Exam: NORMAL INSPECTION - Extremities Exam Extremities Exam: absent: Pedal Edema - Back Exam Back Exam: absent: CVA tenderness (L), CVA tenderness (R) - Neurological Exam Neurological Exam: Alert, Awake, Oriented x3 Neuro motor strength exam: Left Upper Extremity: 4, Right Upper Extremity: 4, Left Lower Extremity: 4, Right Lower Extremity: 4 - Psychiatric Exam Psychiatric exam: Normal Mood - Skin Skin Exam: Dry Assessment and Plan (1) Headache Status: Acute (2) Meningitis Status: Acute - Assessment and Plan (Free Text) Assessment: viral meningitis vs autoimmune neutropenia headache consider repeat LP Vanco and acyclovir d/c'd as well as rocephin observe for fever
--- NOTE | 2017-03-17 20:14 | CP.PCM.PN ---
Subjective - Date & Time of Evaluation Date of Evaluation: 03/17/17 Time of Evaluation: 11:00 - Subjective Subjective: clinically same Objective - Vital Signs/Intake and Output Vital Signs (last 24 hours): Temp Pulse Resp BP Pulse Ox 97.3 F L 80 20 134/89 96 03/17/17 15:04 03/17/17 15:30 03/17/17 15:04 03/17/17 15:04 03/17/17 15:04 Intake and Output: 03/17/17 03/18/17 18:59 06:59 Intake Total 200 Balance 200 - Medications Medications: Current Medications Acetaminophen (Tylenol 325mg Tab) 650 mg PO Q6 PRN PRN Reason: Headache Last Admin: 03/16/17 00:24 Dose: 650 mg Docusate Sodium (Colace) 100 mg PO DAILY [facility] Last Admin: 03/17/17 09:45 Dose: 100 mg Famotidine (Pepcid) 20 mg PO BID [facility] Last Admin: 03/17/17 17:33 Dose: 20 mg Sodium Chloride (Sodium Chloride 0.9%) 500 mls @ 100 mls/hr IV .Q5H [facility] Last Admin: 03/17/17 16:54 Dose: 100 mls/hr Cefepime HCl 1 gm/ Dextrose 50 mls @ 100 mls/hr IVPB Q12H [facility] Last Admin: 03/17/17 17:32 Dose: 100 mls/hr Levetiracetam 500 mg/ Dextrose 105 mls @ 420 mls/hr IVPB Q12H [facility] Last Admin: 03/17/17 19:09 Dose: 420 mls/hr Methylprednisolone 250 mg/ (Sodium Chloride) 100 mls @ 200 mls/hr IVPB Q6H [facility] Last Admin: 03/17/17 13:52 Dose: 200 mls/hr Immune Globulin (Octagam 5%) 360 mls @ 27 mls/hr IV Q24H [facility] Stop: 03/21/17 09:19 Last Admin: 03/17/17 02:14 Dose: 27 mls/hr Ketorolac Tromethamine (Toradol) 15 mg IVP Q8 PRN PRN Reason: Pain Last Admin: 03/16/17 09:39 Dose: 15 mg Ondansetron HCl (Zofran Inj) 4 mg IVP Q8 PRN PRN Reason: Nausea/Vomiting Last Admin: 03/17/17 13:53 Dose: 4 mg Temazepam (Restoril) 15 mg PO HS PRN PRN Reason: Sleep Last Admin: 03/16/17 22:11 Dose: 15 mg - Labs Labs: 03/17/17 08:26 03/17/17 08:26 Assessment and Plan - Assessment and Plan (Free Text) Plan: Spoke to both the father the second December 02 I spoke to Leia speak to Dr. Stokes because he could not urinate well Spoke to father Carey at length on the phone told him about the white cell count has gone down to 1.6 Dr. dougherty then is on the integrity consultant Patient is on IVIG Urology Dr. Cardoza Also second opinion with Dr. avery Discussed with Dr. Cardoza Cardiology consult also and echocardiogram as per Dr. Metzger continue same amy iv antibiotic amy as ordered
[2017-03-17 23:32] LABS: INTRACELLULAR PARASITE NEGATIVE (NEGATIVE)
[2017-03-18] MEDS: Sodium Chloride 0.9% 500 ML IV SCH ×3 (02:00→22:05)
--- NOTE | 2017-03-18 03:57 | CP.PCM.CON ---
History of Present Illness - History of Present Illness History of Present Illness: 21 year old female with a history of migraines, currently being treated for viral meningitis with leukopenia and neutropenia. The patient is unaware of having blood problems in the past. She denies abnormal bleeding and bruising but does note her periods of not been regular. She denies frequent infection and does not get sick frequently. She is feeling better with her current treatment. Past medical history: Migraines Past surgical history: None Family history: Denies hematologic and oncologic problems Social history: Denies tobacco, alcohol, smokes marijuana Allergies: NKDA Review of systems: All remaining review of systems including HEENT, cardiovascular, respiratory, gastrointestinal, genitourinary, musculoskeletal, dermatologic, neurologic, and psychiatric are negative unless mentioned in the HPI. Past Patient History - Past Medical History & Family History Past Medical History?: Yes - Past Social History Smoking Status: Never Smoked - CARDIAC Hx Cardiac Disorders: No - PULMONARY Hx Respiratory Disorders: No - NEUROLOGICAL Hx Neurological Disorder: Yes Hx Migraine: Yes - HEENT Hx HEENT Problems: No - RENAL Hx Chronic Kidney Disease: No - ENDOCRINE/METABOLIC Hx Endocrine Disorders: No - HEMATOLOGICAL/ONCOLOGICAL Hx Blood Disorders: No - INTEGUMENTARY Hx Dermatological Problems: No - MUSCULOSKELETAL/RHEUMATOLOGICAL Hx Musculoskeletal Disorders: No Hx Falls: No - GASTROINTESTINAL Hx Gastrointestinal Disorders: Yes Other/Comment: has a hernia - GENITOURINARY/GYNECOLOGICAL Hx Genitourinary Disorders: No - PSYCHIATRIC Hx Psychophysiologic Disorder: No Hx Substance Use: No - SURGICAL HISTORY Hx Surgeries: No - ANESTHESIA Hx Anesthesia: No Hx Anesthesia Reactions: No Hx Malignant Hyperthermia: No Has any member of the family had a problem w/ anesthesia?: No Meds Allergies/Adverse Reactions: Allergies Allergy/AdvReac Type Severity Reaction Status Date / Time pumpkin Allergy Verified 03/11/17 13:47 - Medications Medications: Current Medications Acetaminophen (Tylenol 325mg Tab) 650 mg PO Q6 PRN PRN Reason: Headache Last Admin: 03/16/17 00:24 Dose: 650 mg Docusate Sodium (Colace) 100 mg PO DAILY [facility] Last Admin: 03/17/17 09:45 Dose: 100 mg Famotidine (Pepcid) 20 mg PO BID [facility] Last Admin: 03/17/17 17:33 Dose: 20 mg Sodium Chloride (Sodium Chloride 0.9%) 500 mls @ 100 mls/hr IV .Q5H [facility] Last Admin: 03/17/17 16:54 Dose: 100 mls/hr Cefepime HCl 1 gm/ Dextrose 50 mls @ 100 mls/hr IVPB Q12H [facility] Last Admin: 03/17/17 17:32 Dose: 100 mls/hr Levetiracetam 500 mg/ Dextrose 105 mls @ 420 mls/hr IVPB Q12H [facility] Last Admin: 03/17/17 19:09 Dose: 420 mls/hr Methylprednisolone 250 mg/ (Sodium Chloride) 100 mls @ 200 mls/hr IVPB Q6H [facility] Last Admin: 03/17/17 20:48 Dose: 200 mls/hr Immune Globulin (Octagam 5%) 360 mls @ 27 mls/hr IV Q24H [facility] Stop: 03/21/17 09:19 Last Admin: 03/17/17 20:47 Dose: 27 mls/hr Ketorolac Tromethamine (Toradol) 15 mg IVP Q8 PRN PRN Reason: Pain Last Admin: 03/16/17 09:39 Dose: 15 mg Ondansetron HCl (Zofran Inj) 4 mg IVP Q8 PRN PRN Reason: Nausea/Vomiting Last Admin: 03/17/17 13:53 Dose: 4 mg Temazepam (Restoril) 15 mg PO HS PRN PRN Reason: Sleep Last Admin: 03/17/17 22:12 Dose: 15 mg Physical Exam - Head Exam Head Exam: ATRAUMATIC - Eye Exam Eye Exam: Normal appearance - ENT Exam ENT Exam: Mucous Membranes Dry - Respiratory Exam Respiratory Exam: NORMAL BREATHING PATTERN - Cardiovascular Exam Cardiovascular Exam: +S1, +S2 - GI/Abdominal Exam GI & Abdominal Exam: Normal Bowel Sounds - Extremities Exam Extremities exam: Positive for: normal inspection - Psychiatric Exam Psychiatric exam: Normal Affect, Normal Mood Results - Vital Signs Recent Vital Signs: Last Vital Signs Temp 97.3 F L 03/17/17 23:35 Pulse 79 03/18/17 00:30 Resp 20 03/17/17 23:35 BP 145/88 03/17/17 23:35 Pulse Ox 95 03/17/17 23:35 - Labs Result Diagrams: 03/17/17 08:26 03/17/17 08:26 Labs: Laboratory Results - last 24 hr 03/17/17 03/17/17 03/17/17 07:40 07:40 08:26 WBC 1.6 L* D RBC 4.59 Hgb 13.6 Hct 39.7 MCV 86.5 MCH 29.7 MCHC 34.4 RDW 13.1 Plt Count 272 MPV 7.2 Neut % (Auto) 56.8 Lymph % (Auto) 38.5 [place] % (Auto) 4.2 Eos % (Auto) 0.1 Baso % (Auto) 0.4 Neut # 0.9 L Lymph # 0.6 L [place] # 0.1 Eos # 0.0 Baso # 0.0 Differential Comment Smear Path Review Sodium Potassium Chloride Carbon Dioxide Anion Gap BUN Creatinine Est GFR ( Amer) Est GFR (Non-Af Amer) Random Glucose Calcium Phosphorus Magnesium Total Bilirubin AST ALT Alkaline Phosphatase Total Protein Albumin Globulin Albumin/Globulin Ratio Procalcitonin Prolactin Urine Color Straw Urine Clarity Clear Urine pH 6.0 Ur Specific [place] 1.009 Urine Protein Negative Urine Glucose (UA) Normal Urine Ketones 1+ H Urine Blood 1+ H Urine Nitrate Negative Urine Bilirubin Negative Urine Urobilinogen Normal Ur Leukocyte Esterase Neg Urine WBC (Auto) < 1 Urine RBC (Auto) 2 Ur Squamous Epith Cells 1 Urine Opiates Screen Negative Urine Methadone Screen Negative Ur Barbiturates Screen Negative Ur Phencyclidine Scrn Negative Ur Amphetamines Screen Negative U Benzodiazepines Scrn Negative U Oth Cocaine Metabols Negative U Cannabinoids Screen Positive RPR Infectious [place] Assay Blood Parasites Smear 03/17/17 03/17/17 03/17/17 08:26 08:26 20:12 WBC RBC Hgb Hct MCV MCH MCHC RDW Plt Count MPV Neut % (Auto) Lymph % (Auto) [place] % (Auto) Eos % (Auto) Baso % (Auto) Neut # Lymph # [place] # Eos # Baso # Differential Comment Smear Path Review Sodium 135 Potassium 4.3 Chloride 100 Carbon Dioxide 22 Anion Gap 16 BUN 10 Creatinine 0.5 L Est GFR ( Amer) > 60 Est GFR (Non-Af Amer) > 60 Random Glucose 173 H Calcium 8.9 Phosphorus 4.1 Magnesium 2.1 Total Bilirubin 0.7 AST 18 ALT 23 Alkaline Phosphatase 33 L Total Protein 7.7 Albumin 4.2 Globulin 3.6 Albumin/Globulin Ratio 1.2 Procalcitonin 0.09 L Prolactin 12.7 Urine Color Urine Clarity Urine pH Ur Specific [place] Urine Protein Urine Glucose (UA) Urine Ketones Urine Blood Urine Nitrate Urine Bilirubin Urine Urobilinogen Ur Leukocyte Esterase Urine WBC (Auto) Urine RBC (Auto) Ur Squamous Epith Cells Urine Opiates Screen Urine Methadone Screen Ur Barbiturates Screen Ur Phencyclidine Scrn Ur Amphetamines Screen U Benzodiazepines Scrn U Oth Cocaine Metabols U Cannabinoids Screen RPR Nonreactive Infectious [place] Assay Negative Blood Parasites Smear Negative Assessment & Plan (1) Leukopenia Assessment and Plan: with mild neutropenia likely benign leukopenia possible medication exacerbated will check HIV and hepatitis panel no current indication for bone marrow evaluation Thank you for this interesting consult. Status: Acute
[2017-03-18 09:00] LABS: BASO % 0.2 % (0.0-2.0); LYMPH # 0.6 K/uL (1.0-4.3); LYMPH % 19.3 % (20.0-40.0); MEAN CELL VOLUME 87.1 fL (81.0-99.0); MEAN CORPUSCULAR HEMOGLOBIN 29.8 pg (27.0-31.0); MEAN CORPUSCULAR HGB CONC 34.1 g/dL (33.0-37.0); MEAN PLATELET VOLUME 7.6 fL (7.2-11.7); MONO # 0.2 K/uL (0.0-0.8); MONO % 5.1 % (0.0-10.0); NRBC % 0.2 % (0.0-2.0); RED CELL DISTRIBUTION WIDTH 13.3 % (11.5-14.5)
[2017-03-18 09:14] LABS: WHITE BLOOD COUNT 3.3 K/uL (4.8-10.8)
[2017-03-18 09:18] LABS: ALB/GLOB RATIO 0.9 (1.0-2.1); ALKALINE PHOSPHATASE 35 U/L (38-126); ALT/SGPT 18 U/L (9-52); AST/SGOT 16 U/L (14-36); BILIRUBIN,TOTAL 0.4 mg/dL (0.2-1.3); BLOOD UREA NITROGEN 12 mg/dL (7-17); CALCIUM 8.8 mg/dl (8.6-10.4); CARBON DIOXIDE 23 mmol/L (22-30); CHLORIDE 102 mmol/L (98-107); GFR AFRICAN-AMERICAN > 60; GLUCOSE,RANDOM 196 mg/dL (65-105); MAGNESIUM 2.3 mg/dL (1.6-2.3); PHOSPHOROUS 3.3 mg/dL (2.5-4.5); POTASSIUM 3.7 mmol/L (3.6-5.2); SODIUM 140 mmol/L (132-148); TOTAL PROTEIN 7.7 g/dL (6.3-8.3)
--- NOTE | 2017-03-18 09:25 | PN ---
DATE: 03/18/2017 TIME OF EVALUATION: 7:10 a.m. LOCATION: The patient's room number 67, bed A. 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 PHYSICAL EXAMINATION: VITAL SIGNS: Blood pressure of 154/95, mean arterial pressure of 114, respiratory rate of 16, and temperature of 97.4. NEUROLOGIC: The patient is more awake, alert and had a good sleep. No confusion. No hallucination. No delusional behavior. The patient complaining of slightly weakness and sore throat, otherwise, she feels normal. Still she could not able to know the date, however, knows the month, the year, and the reason she is in the hospital. The patient's family members feels comfortable stating that she is getting better. The patient's workup reveals gentle neutropenia. The patient has been called for hematology consultation and his consultation has been reviewed and appreciated. She is getting intravenous immunoglobulin, pulsing dose of steroids, and Keppra from my end. I doubt anything could have been caused for her neutropenia at present. Her blood pressure should be observed and properly treated. The patient can get out of the bed and allow her to walk her to walk around with the supervision. Electroencephalogram has been reviewed by me, which showed total N2 sleep, intermittent awakening, brief period of time, there is mild nonspecific asymmetry slowing noted over right temporal leads. However, there is no paroxysmal activities. This study should be repeated may be next week to assess her cerebral activities. Continue the present management for now. Chago Mccormack MD
--- NOTE | 2017-03-18 09:53 | CP.PCM.PN ---
Subjective - Date & Time of Evaluation Date of Evaluation: 03/18/17 Time of Evaluation: 07:05 - Subjective Subjective: Attending: Dr. Obi Aguila Pt seen and examined at bedside. No acute distress. Pt lying in bed, comfortably. Slept well, AAOx3. Continues to report constipation, no BM since 03/09. No fever since 03/15. She has been eating minimally, encouraged to eat. Her last episode of n/v was yesterday. Being treated now with IV IG and IV keppra, neuro, ID, INSOLE TACK PULLER HAND following. Denies f/c, neck pain, diarrhea, confusion, or any additional complaints. Objective - Vital Signs/Intake and Output Vital Signs (last 24 hours): Temp Pulse Resp BP Pulse Ox 97.2 F L 80 20 147/96 H 95 03/18/17 09:11 03/18/17 09:11 03/18/17 09:11 03/18/17 09:11 03/18/17 09:11 Intake and Output: 03/18/17 03/18/17 06:59 18:59 Intake Total 2316 Output Total 800 Balance 1516 - Medications Medications: Current Medications Acetaminophen (Tylenol 325mg Tab) 650 mg PO Q6 PRN PRN Reason: Headache Last Admin: 03/18/17 04:45 Dose: 650 mg Docusate Sodium (Colace) 100 mg PO DAILY [facility] Last Admin: 03/17/17 09:45 Dose: 100 mg Famotidine (Pepcid) 20 mg PO BID [facility] Last Admin: 03/17/17 17:33 Dose: 20 mg Sodium Chloride (Sodium Chloride 0.9%) 500 mls @ 100 mls/hr IV .Q5H [facility] Last Admin: 03/18/17 02:00 Dose: Not Given Cefepime HCl 1 gm/ Dextrose 50 mls @ 100 mls/hr IVPB Q12H [facility] Last Admin: 03/18/17 05:42 Dose: 100 mls/hr Levetiracetam 500 mg/ Dextrose 105 mls @ 420 mls/hr IVPB Q12H [facility] Last Admin: 03/18/17 07:47 Dose: 420 mls/hr Methylprednisolone 250 mg/ (Sodium Chloride) 100 mls @ 200 mls/hr IVPB Q6H [facility] Last Admin: 03/18/17 08:16 Dose: 200 mls/hr Immune Globulin (Octagam 5%) 360 mls @ 27 mls/hr IV Q24H [facility] Stop: 03/21/17 09:19 Last Admin: 03/17/17 20:47 Dose: 27 mls/hr Ondansetron HCl (Zofran Inj) 4 mg IVP Q8 PRN PRN Reason: Nausea/Vomiting Last Admin: 03/17/17 13:53 Dose: 4 mg Temazepam (Restoril) 15 mg PO HS PRN PRN Reason: Sleep Last Admin: 03/17/17 22:12 Dose: 15 mg - Labs Labs: 03/18/17 08:44 03/18/17 08:44 - Additional Findings Additional findings: - Constitutional Appears: Non-toxic, No Acute Distress - Head Exam Head Exam: ATRAUMATIC, NORMAL INSPECTION, NORMOCEPHALIC - no nucal rigidity - Eye Exam Eye Exam: EOMI - ENT Exam ENT Exam: Mucous Membranes Moist - Respiratory Exam Respiratory Exam: NORMAL BREATHING PATTERN. absent: Respiratory Distress - Cardiovascular Exam Cardiovascular Exam: +S1, +S2 - GI/Abdominal Exam GI & Abdominal Exam: Soft, Normal Bowel Sounds. absent: Tenderness - Extremities Exam Extremities Exam: Full ROM - Neurological Exam Neurological Exam: Alert, Awake, CN II-XII Intact - Psychiatric Exam Psychiatric exam: Normal mood, Flat Affect (improving) - Skin Skin Exam: Dry, Intact, Normal Color, Warm Assessment and Plan - Assessment and Plan (Free Text) Assessment: This is a 21 yo female with past medical hx of migraines presenting with headache and neck stiffness, spinal tap performed, likely viral meningitis Viral meningitis 03/18: CSF negative. BC negative x1d. Blood parasite negative. +Cannabinoids. +ANA6, RPR nonreactive -> consult placed to Dr. Desai, rheumatology. Followup QUOTATION CHECKER + DS-DNA CSF showed lymphocytic predominance with elevated protein. 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 pending official read. Head CT negative, repeat head ct negative Neurology following- it is Dr. Mccormack- Dr. Beatty was only covering this past weekend. ID following- Dr. Metzger - help appreciated. * IV acyclovir has been discontinued in favor of immune globulin and keppra * -IV methprednisolone added * cont cefepime * IV IG and IV keppra have been added * Second ID consult placed with Dr. Jain continue droplet precautions Nausea and vomiting 03/18: Last episode of n/v yesterday. Feeling better today. -X ray shows no evidence of obstruction -continue zofran for nausea -perhaps related to underlying meningitis -continue to monitor Constipation 03/18: No BM since 03/09. Colace inc to BID. Lactulose once. -no sign of obstruction -continue colace -awaiting BM Elevated prolactin -may be secondary to increased emotional/physical stress -MRI brain ordered -repeat prolactin back in normal range GI/DVT ppx -continue pepcid daily -SCDs Case discussed with attending. All medical management as per Dr. Jaxon Aguila
--- NOTE | 2017-03-18 10:54 | EEG ---
DATE: 03/17/2017 This is a 16-channel electroencephalogram of drowsy adult. During the study, photic stimulation was performed. Hyperventilation was not performed. The resting electroencephalogram to begin with bilateral low-amplitude theta activity is noted, which is followed with sleep spindle and K complexes were noted which was consistent with N2 sleep. This N2 sleep is continuously noted from the beginning, intermittently some awakening with delta waves with some muscle artifacts also noted over the left parietal region. There was transient right temporal slow activities noted which may be nonspecific at present. The photic stimulation did not evoke driving response noted after 20 to 25 Hz. IMPRESSION: This is an abnormal electroencephalogram because of persistent slowing throughout the record superimposed with N2 sleep. This study does not show any electrophysiological paroxysmal activities. This study should be repeated if really indicated clinically. Chago Mccormack MD
[2017-03-18 11:59] LABS: ANA TITER 1:40
--- NOTE | 2017-03-18 15:52 | CP.PCM.PN ---
Subjective - Date & Time of Evaluation Date of Evaluation: 03/18/17 Time of Evaluation: 07:00 - Subjective Subjective: FEELING GENERALLY BETTER ALERT AND RESPONSIVE NAD AWAIT NEURO RE-EVAL FOR POSSIBLE REPEAT LP HAS NO FEVER AND ALL CULTURES ARE NEGATIVE HEP A IgM WAS EQUIVOCAL AND RE-ORDERED HIV PCR PENDING TOX SCREEN + FOR CANNIBIS ON 03/17/17 DR Jaxon JIN AWARE WBC IS IMPROVING Objective - Vital Signs/Intake and Output Vital Signs (last 24 hours): Temp Pulse Resp BP Pulse Ox 97.2 F L 80 20 147/96 H 95 03/18/17 09:11 03/18/17 09:11 03/18/17 09:11 03/18/17 09:11 03/18/17 09:11 Intake and Output: 03/18/17 03/18/17 06:59 18:59 Intake Total 2316 Output Total 800 Balance 1516 - Medications Medications: Current Medications Acetaminophen (Tylenol 325mg Tab) 650 mg PO Q6 PRN PRN Reason: Headache Last Admin: 03/18/17 04:45 Dose: 650 mg Docusate Sodium (Colace) 100 mg PO BID [facility] Last Admin: 03/18/17 10:11 Dose: Not Given Famotidine (Pepcid) 20 mg PO BID [facility] Last Admin: 03/18/17 09:51 Dose: 20 mg Sodium Chloride (Sodium Chloride 0.9%) 500 mls @ 100 mls/hr IV .Q5H [facility] Last Admin: 03/18/17 02:00 Dose: Not Given Cefepime HCl 1 gm/ Dextrose 50 mls @ 100 mls/hr IVPB Q12H [facility] Last Admin: 03/18/17 05:42 Dose: 100 mls/hr Levetiracetam 500 mg/ Dextrose 105 mls @ 420 mls/hr IVPB Q12H [facility] Last Admin: 03/18/17 07:47 Dose: 420 mls/hr Methylprednisolone 250 mg/ (Sodium Chloride) 100 mls @ 200 mls/hr IVPB Q6H [facility] Last Admin: 03/18/17 14:23 Dose: 200 mls/hr Immune Globulin (Octagam 5%) 360 mls @ 27 mls/hr IV Q24H [facility] Stop: 03/21/17 09:19 Last Admin: 03/17/17 20:47 Dose: 27 mls/hr Ondansetron HCl (Zofran Inj) 4 mg IVP Q8 PRN PRN Reason: Nausea/Vomiting Last Admin: 03/17/17 13:53 Dose: 4 mg Temazepam (Restoril) 15 mg PO HS PRN PRN Reason: Sleep Last Admin: 03/17/17 22:12 Dose: 15 mg - Labs Labs: 03/18/17 08:44 03/18/17 08:44 - Constitutional Appears: Non-toxic, Chronically Ill - Head Exam Head Exam: ATRAUMATIC, NORMAL INSPECTION, NORMOCEPHALIC - Eye Exam Eye Exam: PERRL. absent: Scleral icterus - ENT Exam ENT Exam: Mucous Membranes Dry - Neck Exam Neck Exam: absent: Lymphadenopathy - Respiratory Exam Respiratory Exam: Decreased Breath Sounds, Clear to Ausculation Bilateral - Cardiovascular Exam Cardiovascular Exam: REGULAR RHYTHM, +S1, +S2 - GI/Abdominal Exam GI & Abdominal Exam: Soft, Diminished Bowel Sounds. absent: Guarding, Tenderness - Rectal Exam Rectal Exam: Deferred - Exam Exam: NORMAL INSPECTION - Extremities Exam Extremities Exam: absent: Calf Tenderness, Pedal Edema, Tenderness - Back Exam Back Exam: absent: CVA tenderness (L), CVA tenderness (R), paraspinal tenderness - Neurological Exam Neurological Exam: Alert, Awake, CN II-XII Intact, Oriented x3, Reflexes Normal Neuro motor strength exam: Left Upper Extremity: 4, Right Upper Extremity: 4, Left Lower Extremity: 4, Right Lower Extremity: 4 - Psychiatric Exam Psychiatric exam: Depressed - Skin Skin Exam: Dry Assessment and Plan (1) Headache Status: Acute (2) Meningitis Status: Acute - Assessment and Plan (Free Text) Assessment: TODAY IS 7TH DAY IV ANTIBIOTICS ALL CULTURES NEG CONSIDER D/C ANTIBIOTICS IN AM CONSIDER CARDIO EVAL FOR ECHO AND POSSIBLE AGUSTIN CONSIDER REPEAT LP AWAIT NEURO RE-EVAL DR YUSUF
--- NOTE | 2017-03-18 18:31 | CP.PCM.PN ---
Subjective - Date & Time of Evaluation Date of Evaluation: 03/18/17 Time of Evaluation: 10:00 - Subjective Subjective: clinically same Objective - Vital Signs/Intake and Output Vital Signs (last 24 hours): Temp Pulse Resp BP Pulse Ox 99.0 F 80 20 132/87 98 03/18/17 15:05 03/18/17 15:05 03/18/17 15:05 03/18/17 15:05 03/18/17 15:05 Intake and Output: 03/18/17 03/18/17 06:59 18:59 Intake Total 2316 Output Total 800 Balance 1516 - Medications Medications: Current Medications Acetaminophen (Tylenol 325mg Tab) 650 mg PO Q6 PRN PRN Reason: Headache Last Admin: 03/18/17 04:45 Dose: 650 mg Docusate Sodium (Colace) 100 mg PO BID [facility] Last Admin: 03/18/17 17:47 Dose: 100 mg Famotidine (Pepcid) 20 mg PO BID [facility] Last Admin: 03/18/17 17:47 Dose: 20 mg Sodium Chloride (Sodium Chloride 0.9%) 500 mls @ 100 mls/hr IV .Q5H [facility] Last Admin: 03/18/17 17:47 Dose: Not Given Cefepime HCl 1 gm/ Dextrose 50 mls @ 100 mls/hr IVPB Q12H [facility] Last Admin: 03/18/17 17:44 Dose: 100 mls/hr Levetiracetam 500 mg/ Dextrose 105 mls @ 420 mls/hr IVPB Q12H [facility] Last Admin: 03/18/17 07:47 Dose: 420 mls/hr Methylprednisolone 250 mg/ (Sodium Chloride) 100 mls @ 200 mls/hr IVPB Q6H [facility] Last Admin: 03/18/17 14:23 Dose: 200 mls/hr Immune Globulin (Octagam 5%) 360 mls @ 27 mls/hr IV Q24H [facility] Stop: 03/21/17 09:19 Last Admin: 03/17/17 20:47 Dose: 27 mls/hr Ondansetron HCl (Zofran Inj) 4 mg IVP Q8 PRN PRN Reason: Nausea/Vomiting Last Admin: 03/17/17 13:53 Dose: 4 mg Temazepam (Restoril) 15 mg PO HS PRN PRN Reason: Sleep Last Admin: 03/17/17 22:12 Dose: 15 mg - Labs Labs: 03/18/17 08:44 03/18/17 08:44 - Constitutional Appears: Well - Head Exam Head Exam: ATRAUMATIC, NORMAL INSPECTION, NORMOCEPHALIC - Eye Exam Eye Exam: EOMI, Normal appearance, PERRL Pupil Exam: NORMAL ACCOMODATION, PERRL - ENT Exam ENT Exam: Mucous Membranes Moist, Normal Exam - Neck Exam Neck Exam: Full ROM, Normal Inspection. absent: Lymphadenopathy - Respiratory Exam Respiratory Exam: Decreased Breath Sounds - Cardiovascular Exam Cardiovascular Exam: REGULAR RHYTHM, +S1, +S2 - GI/Abdominal Exam GI & Abdominal Exam: Soft, Diminished Bowel Sounds - Rectal Exam Rectal Exam: Deferred
[2017-03-18] MEDS: IMMUNE GLOBULIN 50 MG/ML IV SCH (20:58)
--- NOTE | 2017-03-18 22:15 | PN ---
INFECTIOUS DISEASE FOLLOWUP DATE: SUBJECTIVE: The patient remains afebrile. She is very alert now. She says she ate. I do not see any problems. Right now, she looks more normal. PHYSICAL EXAMINATION: GENERAL: Family member is at the bedside. VITAL SIGNS: T-max is 99, pulse is 80, blood pressure 132/87, respirations are 20. HEENT: Head is atraumatic. Tongue is moist. NECK: Supple. LUNGS: Clear. HEART: S1 and S2 is regular. ABDOMEN: Soft and nontender. EXTREMITIES: No edema, clubbing, or cyanosis. She is moving all her extremities. LABORATORY DATA: White count is 3.3, hemoglobin 13.3, hematocrit 39, platelet count is 308. MEDICATIONS: Medications are noted that she is on steroids as well as on IVIG. ASSESSMENT AND PLAN: We are awaiting for the neurologist to evaluate her. It is because she is infectious mononucleosis chemistry positive. Her hepatitis A and IgM reported borderline, which I am not sure. We would need to repeat another sample and IPR is negative and she did have some viral meningitis and I am not sure if her white dropped because of the vancomycin and acyclovir that she did receive before and she was confused, but whenever the times I have seen her, I had found her weak, but not confused. Maged Jain MD
--- NOTE | 2017-03-19 08:10 | CP.PCM.CON ---
History of Present Illness - History of Present Illness History of Present Illness: Reason For consultation: R/O Endocarditis History of Present Illness - History of Present Illness History of Present Illness: 21 year old female with a history of migraines, currently being treated for viral meningitis with leukopenia and neutropenia. The patient is unaware of having blood problems in the past. She denies abnormal bleeding and bruising but does note her periods of not been regular. She denies frequent infection and does not get sick frequently. She is feeling better with her current treatment. Past medical history: Migraines Past surgical history: None Family history: Denies hematologic and oncologic problems Social history: Denies tobacco, alcohol, smokes marijuana Allergies: NKDA Review of systems: All remaining review of systems including HEENT, cardiovascular, respiratory, gastrointestinal, genitourinary, musculoskeletal, dermatologic, neurologic, and psychiatric are negative unless mentioned in the HPI. Physical Exam - Head Exam Head Exam: ATRAUMATIC - Eye Exam Eye Exam: Normal appearance - ENT Exam ENT Exam: Mucous Membranes Dry - Respiratory Exam Respiratory Exam: NORMAL BREATHING PATTERN - Cardiovascular Exam Cardiovascular Exam: +S1, +S2 - GI/Abdominal Exam GI & Abdominal Exam: Normal Bowel Sounds - Extremities Exam Extremities exam: Positive for: normal inspection - Psychiatric Exam Psychiatric exam: Normal Affect, Normal Mood Past Patient History - Past Medical History & Family History Past Medical History?: Yes - Past Social History Smoking Status: Never Smoked - CARDIAC Hx Cardiac Disorders: No - PULMONARY Hx Respiratory Disorders: No - NEUROLOGICAL Hx Neurological Disorder: Yes Hx Migraine: Yes - HEENT Hx HEENT Problems: No - RENAL Hx Chronic Kidney Disease: No - ENDOCRINE/METABOLIC Hx Endocrine Disorders: No - HEMATOLOGICAL/ONCOLOGICAL Hx Blood Disorders: No - INTEGUMENTARY Hx Dermatological Problems: No - MUSCULOSKELETAL/RHEUMATOLOGICAL Hx Musculoskeletal Disorders: No Hx Falls: No - GASTROINTESTINAL Hx Gastrointestinal Disorders: Yes Other/Comment: has a hernia - GENITOURINARY/GYNECOLOGICAL Hx Genitourinary Disorders: No - PSYCHIATRIC Hx Psychophysiologic Disorder: No Hx Substance Use: No - SURGICAL HISTORY Hx Surgeries: No - ANESTHESIA Hx Anesthesia: No Hx Anesthesia Reactions: No Hx Malignant Hyperthermia: No Has any member of the family had a problem w/ anesthesia?: No Meds Allergies/Adverse Reactions: Allergies Allergy/AdvReac Type Severity Reaction Status Date / Time pumpkin Allergy Verified 03/11/17 13:47 - Medications Medications: Current Medications Acetaminophen (Tylenol 325mg Tab) 650 mg PO Q6 PRN PRN Reason: Headache Last Admin: 03/18/17 04:45 Dose: 650 mg Docusate Sodium (Colace) 100 mg PO BID [facility] Last Admin: 03/18/17 17:47 Dose: 100 mg Famotidine (Pepcid) 20 mg PO BID [facility] Last Admin: 03/18/17 17:47 Dose: 20 mg Cefepime HCl 1 gm/ Dextrose 50 mls @ 100 mls/hr IVPB Q12H [facility] Last Admin: 03/19/17 05:03 Dose: 100 mls/hr Levetiracetam 500 mg/ Dextrose 105 mls @ 420 mls/hr IVPB Q12H [facility] Last Admin: 03/18/17 19:40 Dose: 420 mls/hr Methylprednisolone 250 mg/ (Sodium Chloride) 100 mls @ 200 mls/hr IVPB Q6H [facility] Last Admin: 03/19/17 01:04 Dose: 200 mls/hr Immune Globulin (Octagam 5%) 360 mls @ 27 mls/hr IV Q24H [facility] Stop: 03/21/17 09:19 Last Admin: 03/18/17 20:58 Dose: 27 mls/hr Ondansetron HCl (Zofran Inj) 4 mg IVP Q8 PRN PRN Reason: Nausea/Vomiting Last Admin: 03/17/17 13:53 Dose: 4 mg Temazepam (Restoril) 15 mg PO HS PRN PRN Reason: Sleep Last Admin: 03/17/17 22:12 Dose: 15 mg Results - Vital Signs Recent Vital Signs: Last Vital Signs Temp 97.3 F L 03/19/17 07:59 Pulse 78 03/19/17 07:59 Resp 20 03/19/17 07:59 BP 161/74 H 03/19/17 07:59 Pulse Ox 97 03/19/17 07:59 - Labs Result Diagrams: 03/18/17 08:44 03/18/17 08:44 Labs: Laboratory Results - last 24 hr 03/17/17 03/17/17 03/18/17 08:26 09:03 08:44 WBC 3.3 L D RBC 4.48 Hgb 13.3 Hct 39.0 MCV 87.1 MCH 29.8 MCHC 34.1 RDW 13.3 Plt Count 308 MPV 7.6 Neut % (Auto) 75.4 H Lymph % (Auto) 19.3 L Day % (Auto) 5.1 Eos % (Auto) 0.0 Baso % (Auto) 0.2 Neut # 2.5 Lymph # 0.6 L Day # 0.2 Eos # 0.0 Baso # 0.0 Sodium Potassium Chloride Carbon Dioxide Anion Gap BUN Creatinine Est GFR ( Amer) Est GFR (Non-Af Amer) Random Glucose Calcium Phosphorus Magnesium Total Bilirubin AST ALT Alkaline Phosphatase Total Protein Albumin Globulin Albumin/Globulin Ratio Angiotensin Convert Enz 42 LYNNE 6 Profile Positive H LYNNE Titer 1:40 H LYNNE Pattern Speckled H Cryptococcus Ag Hepatitis A IgM Ab Hepatitis A Ab Total Hep Bs Antigen Hep B Core IgM Ab Hepatitis C Antibody 03/18/17 03/18/17 03/18/17 08:44 08:44 08:44 WBC RBC Hgb Hct MCV MCH MCHC RDW Plt Count MPV Neut % (Auto) Lymph % (Auto) Day % (Auto) Eos % (Auto) Baso % (Auto) Neut # Lymph # Day # Eos # Baso # Sodium 140 Potassium 3.7 Chloride 102 Carbon Dioxide 23 Anion Gap 18 BUN 12 Creatinine 0.5 L Est GFR ( Amer) > 60 Est GFR (Non-Af Amer) > 60 Random Glucose 196 H Calcium 8.8 Phosphorus 3.3 Magnesium 2.3 Total Bilirubin 0.4 AST 16 ALT 18 Alkaline Phosphatase 35 L Total Protein 7.7 Albumin 3.7 Globulin 4.0 H Albumin/Globulin Ratio 0.9 L Angiotensin Convert Enz LYNNE 6 Profile LYNNE Titer LYNNE Pattern Cryptococcus Ag Negative Hepatitis A IgM Ab Borderline Hepatitis A Ab Total Hep Bs Antigen Negative Hep B Core IgM Ab Negative Hepatitis C Antibody Negative 03/18/17 08:44 WBC RBC Hgb Hct MCV MCH MCHC RDW Plt Count MPV Neut % (Auto) Lymph % (Auto) Day % (Auto) Eos % (Auto) Baso % (Auto) Neut # Lymph # Day # Eos # Baso # Sodium Potassium Chloride Carbon Dioxide Anion Gap BUN Creatinine Est GFR ( Amer) Est GFR (Non-Af Amer) Random Glucose Calcium Phosphorus Magnesium Total Bilirubin AST ALT Alkaline Phosphatase Total Protein Albumin Globulin Albumin/Globulin Ratio Angiotensin Convert Enz LYNNE 6 Profile LYNNE Titer LYNNE Pattern Cryptococcus Ag Hepatitis A IgM Ab Hepatitis A Ab Total Antibody pos Hep Bs Antigen Hep B Core IgM Ab Hepatitis C Antibody Assessment & Plan - Assessment and Plan (Free Text) Assessment: Assessment and Plan - Assessment and Plan (Free Text) Assessment: This is a 21 yo female with past medical hx of migraines presenting with headache and neck stiffness, spinal tap performed, likely viral meningitis Viral meningitis 03/18: CSF negative. BC negative x1d. Blood parasite negative. +Cannabinoids. +ANA6, RPR nonreactive -> consult placed to Dr. Desai, rheumatology. Followup [employer] [facility] + DS-DNA CSF showed lymphocytic predominance with elevated protein. 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 pending official read. Head CT negative, repeat head ct negative Neurology following- it is Dr. Mccormack- Dr. Beatty was only covering this past weekend. ID following- Dr. Metzger - help appreciated. * IV acyclovir has been discontinued in favor of immune globulin and keppra * -IV methprednisolone added * cont cefepime * IV IG and IV keppra have been added * Second ID consult placed with Dr. Jain continue droplet precautions Nausea and vomiting 03/18: Last episode of n/v yesterday. Feeling better today. -X ray shows no evidence of obstruction -continue zofran for nausea -perhaps related to underlying meningitis -continue to monitor Constipation 03/18: No BM since 03/09. Colace inc to BID. Lactulose once. -no sign of obstruction -continue colace -awaiting BM Elevated prolactin -may be secondary to increased emotional/physical stress -MRI brain ordered -repeat prolactin back in normal range GI/DVT ppx -continue pepcid daily -SCDs ECHO: Normal and No evidenec of Endocarditis No clinical signs and symptoms of endocarditis Do not recommend AGUSTIN unless blood cultures are positive
--- NOTE | 2017-03-19 15:31 | CP.PCM.PN ---
Subjective - Date & Time of Evaluation Date of Evaluation: 03/19/17 Time of Evaluation: 10:00 - Subjective Subjective: clinically same Objective - Vital Signs/Intake and Output Vital Signs (last 24 hours): Temp Pulse Resp BP Pulse Ox 97.3 F L 73 20 131/87 97 03/19/17 07:59 03/19/17 08:00 03/19/17 07:59 03/19/17 07:59 03/19/17 07:59 Intake and Output: 03/19/17 03/19/17 06:59 18:59 Intake Total 1670 Balance 1670 - Medications Medications: Current Medications Acetaminophen (Tylenol 325mg Tab) 650 mg PO Q6 PRN PRN Reason: Headache Last Admin: 03/18/17 04:45 Dose: 650 mg Docusate Sodium (Colace) 100 mg PO BID [facility] Last Admin: 03/19/17 09:11 Dose: 100 mg Famotidine (Pepcid) 20 mg PO BID [facility] Last Admin: 03/19/17 09:11 Dose: 20 mg Cefepime HCl 1 gm/ Dextrose 50 mls @ 100 mls/hr IVPB Q12H [facility] Last Admin: 03/19/17 05:03 Dose: 100 mls/hr Levetiracetam 500 mg/ Dextrose 105 mls @ 420 mls/hr IVPB Q12H [facility] Last Admin: 03/19/17 08:29 Dose: 420 mls/hr Methylprednisolone 250 mg/ (Sodium Chloride) 100 mls @ 200 mls/hr IVPB Q6H [facility] Last Admin: 03/19/17 15:00 Dose: 200 mls/hr Immune Globulin (Octagam 5%) 360 mls @ 27 mls/hr IV Q24H [facility] Stop: 03/21/17 09:19 Last Admin: 03/18/17 20:58 Dose: 27 mls/hr Ondansetron HCl (Zofran Inj) 4 mg IVP Q8 PRN PRN Reason: Nausea/Vomiting Last Admin: 03/17/17 13:53 Dose: 4 mg Temazepam (Restoril) 15 mg PO HS PRN PRN Reason: Sleep Last Admin: 03/17/17 22:12 Dose: 15 mg - Labs Labs: 03/18/17 08:44 03/18/17 08:44 - Constitutional Appears: Well - Head Exam Head Exam: ATRAUMATIC, NORMAL INSPECTION, NORMOCEPHALIC - Eye Exam Eye Exam: EOMI, Normal appearance, PERRL Pupil Exam: NORMAL ACCOMODATION, PERRL - ENT Exam ENT Exam: Mucous Membranes Moist, Normal Exam - Neck Exam Neck Exam: Full ROM, Normal Inspection. absent: Lymphadenopathy - Respiratory Exam Respiratory Exam: Decreased Breath Sounds - Cardiovascular Exam Cardiovascular Exam: REGULAR RHYTHM, +S1, +S2 - GI/Abdominal Exam GI & Abdominal Exam: Soft, Diminished Bowel Sounds - Rectal Exam Rectal Exam: Deferred
--- NOTE | 2017-03-19 16:00 | CARD ---
APPROVED REPORT EXAM: Two-dimensional and M-mode echocardiogram with Doppler and color Doppler. Other Information Quality : [employer] : INDICATION FEVER- ENDOCARDITIS 2D DIMENSIONS IVSd0.8 (0.7-1.1cm)LVDd4.0 (3.9-5.9cm) PWd0.8 (0.7-1.1cm)LVDs2.5 (2.5-4.0cm) FS (%) 36.3 %LVEF (%)66.5 (>50%) M-Mode DIMENSIONS Left Atrium (MM)2.62 (2.5-4.0cm)Aortic Root2.60 (2.2-3.7cm) Aortic Cusp Exc.1.74 (1.5-2.0cm) Mitral Valve MV E Cibwfisr22.0cm/sMV A Ttckycpr07.3cm/sE/A ratio1.6 TDI E/Lateral E'0.0E/Medial E'0.0 Tricuspid Valve TR Peak Psqyurhe258wl/sTR Peak Gr.[id number] LEFT VENTRICLE The left ventricle is normal size. There is normal left ventricular wall thickness. Left ventricle systolic function is normal. The Ejection Fraction is 65-70%. There is normal LV segmental wall motion. The left ventricular diastolic function is normal. No left ventricle thrombus noted on this study. RIGHT VENTRICLE The right ventricle is normal size. There is normal right ventricular wall thickness. The right ventricular systolic function is normal. AORTIC VALVE The aortic valve is normal in structure. No aortic regurgitation is present. There is no aortic valvular stenosis. There is no aortic valvular vegetation. MITRAL VALVE The mitral valve is normal in structure. There is no evidence of mitral valve prolapse. There is no mitral valve stenosis. Mitral regurgitation is mild. TRICUSPID VALVE The tricuspid valve is normal in structure. There is trace to mild tricuspid regurgitation. Right ventricular systolic pressure is estimated at 30-40 mmHg. There is mild pulmonary hypertension. PULMONIC VALVE The pulmonic valve is not well visualized. There is mild pulmonic valvular regurgitation. GREAT VESSELS The aortic root is normal in size. PERICARDIAL EFFUSION There is no significant pericardial effusion. <Conclusion> Left ventricle systolic function is normal. The Ejection Fraction is 65-70%. No aortic regurgitation is present. Mitral regurgitation is mild. There is trace to mild tricuspid regurgitation. There is mild pulmonary hypertension. There is mild pulmonic valvular regurgitation.
[2017-03-19] MEDS: IMMUNE GLOBULIN 50 MG/ML IV SCH (20:56)
--- NOTE | 2017-03-20 15:40 | CP.PCM.PN ---
Subjective - Date & Time of Evaluation Date of Evaluation: 03/20/17 Time of Evaluation: 07:00 - Subjective Subjective: WEAK BEDRIDDEN ALERT ORIENTED C/O PAIN DECONDITIONING Objective - Vital Signs/Intake and Output Vital Signs (last 24 hours): Temp Pulse Resp BP Pulse Ox 97.0 F L 94 H 20 134/89 96 03/20/17 09:37 03/20/17 09:37 03/20/17 09:37 03/20/17 09:37 03/20/17 09:37 Intake and Output: 03/20/17 03/20/17 06:59 18:59 Intake Total 1120 Balance 1120 - Medications Medications: Current Medications Acetaminophen (Tylenol 325mg Tab) 650 mg PO Q6 PRN PRN Reason: Headache Last Admin: 03/20/17 09:21 Dose: 650 mg Docusate Sodium (Colace) 100 mg PO BID [facility] Last Admin: 03/20/17 09:21 Dose: 100 mg Famotidine (Pepcid) 20 mg PO BID [facility] Last Admin: 03/20/17 09:22 Dose: 20 mg Methylprednisolone 250 mg/ (Sodium Chloride) 100 mls @ 200 mls/hr IVPB Q6H [facility] Last Admin: 03/20/17 13:34 Dose: 200 mls/hr Immune Globulin (Octagam 5%) 360 mls @ 27 mls/hr IV Q24H [facility] Stop: 03/21/17 09:19 Last Admin: 03/19/17 20:56 Dose: 27 mls/hr Levetiracetam 500 mg/ Dextrose 105 mls @ 420 mls/hr IVPB Q12H [facility] Last Admin: 03/20/17 08:08 Dose: 420 mls/hr Lactulose (Enulose) 20 gm PO BID [facility] Ondansetron HCl (Zofran Inj) 4 mg IVP Q8 PRN PRN Reason: Nausea/Vomiting Last Admin: 03/17/17 13:53 Dose: 4 mg Temazepam (Restoril) 15 mg PO HS PRN PRN Reason: Sleep Last Admin: 03/19/17 22:38 Dose: 15 mg - Labs Labs: 03/18/17 08:44 03/18/17 08:44 - Constitutional Appears: Non-toxic, Cachectic, Chronically Ill - Head Exam Head Exam: NORMOCEPHALIC - Eye Exam Eye Exam: PERRL. absent: Scleral icterus - ENT Exam ENT Exam: Mucous Membranes Dry - Neck Exam Neck Exam: absent: Lymphadenopathy - Respiratory Exam Respiratory Exam: Decreased Breath Sounds, Clear to Ausculation Bilateral - Cardiovascular Exam Cardiovascular Exam: REGULAR RHYTHM, +S1, +S2 - GI/Abdominal Exam GI & Abdominal Exam: Distended, Soft. absent: Tenderness - Rectal Exam Rectal Exam: Deferred - Exam Exam: NORMAL INSPECTION - Extremities Exam Extremities Exam: absent: Calf Tenderness, Pedal Edema, Tenderness - Back Exam Back Exam: absent: CVA tenderness (L), CVA tenderness (R) - Neurological Exam Neurological Exam: Alert, Awake, Oriented x3 - Psychiatric Exam Psychiatric exam: Normal Mood - Skin Skin Exam: Dry, Intact Assessment and Plan (1) Headache Status: Acute (2) Meningitis Status: Acute - Assessment and Plan (Free Text) Assessment: VIRAL MENINGITIS IMPROVING POST VIRAL SYNDROME NEEDS PT EVAL OFF ANTIBIOTICS
--- NOTE | 2017-03-20 19:46 | CP.PCM.PN ---
Subjective - Date & Time of Evaluation Date of Evaluation: 03/20/17 Time of Evaluation: 09:40 - Subjective Subjective: clinically same Objective - Vital Signs/Intake and Output Vital Signs (last 24 hours): Temp Pulse Resp BP Pulse Ox 98 F 88 18 130/69 96 03/20/17 15:51 03/20/17 16:05 03/20/17 15:51 03/20/17 15:51 03/20/17 15:51 - Medications Medications: Current Medications Acetaminophen (Tylenol 325mg Tab) 650 mg PO Q6 PRN PRN Reason: Headache Last Admin: 03/20/17 09:21 Dose: 650 mg Docusate Sodium (Colace) 100 mg PO BID [facility] Last Admin: 03/20/17 18:01 Dose: 100 mg Famotidine (Pepcid) 20 mg PO BID [facility] Last Admin: 03/20/17 18:02 Dose: 20 mg Methylprednisolone 250 mg/ (Sodium Chloride) 100 mls @ 200 mls/hr IVPB Q6H [facility] Last Admin: 03/20/17 19:22 Dose: 200 mls/hr Immune Globulin (Octagam 5%) 360 mls @ 27 mls/hr IV Q24H [facility] Stop: 03/21/17 09:19 Last Admin: 03/19/17 20:56 Dose: 27 mls/hr Levetiracetam 500 mg/ Dextrose 105 mls @ 420 mls/hr IVPB Q12H [facility] Last Admin: 03/20/17 19:04 Dose: 420 mls/hr Lactulose (Enulose) 20 gm PO BID [facility] Last Admin: 03/20/17 18:02 Dose: 20 gm Ondansetron HCl (Zofran Inj) 4 mg IVP Q8 PRN PRN Reason: Nausea/Vomiting Last Admin: 03/17/17 13:53 Dose: 4 mg Temazepam (Restoril) 15 mg PO HS PRN PRN Reason: Sleep Last Admin: 03/19/17 22:38 Dose: 15 mg - Labs Labs: 03/18/17 08:44 03/18/17 08:44 - Constitutional Appears: Well - Head Exam Head Exam: ATRAUMATIC, NORMAL INSPECTION, NORMOCEPHALIC - Eye Exam Eye Exam: EOMI, Normal appearance, PERRL - ENT Exam ENT Exam: Mucous Membranes Moist, Normal Exam - Neck Exam Neck Exam: Full ROM, Normal Inspection. absent: Lymphadenopathy - Respiratory Exam Respiratory Exam: Decreased Breath Sounds - Cardiovascular Exam Cardiovascular Exam: REGULAR RHYTHM, +S1, +S2. absent: Murmur - GI/Abdominal Exam GI & Abdominal Exam: Diminished Bowel Sounds - Rectal Exam Rectal Exam: Deferred
[2017-03-20 19:54] LABS: BASO % 0.1 % (0.0-2.0); HEMATOCRIT 34.3 % (34.0-47.0); LYMPH # 0.6 K/uL (1.0-4.3); LYMPH % 10.9 % (20.0-40.0); MEAN CELL VOLUME 87.1 fL (81.0-99.0); MEAN CORPUSCULAR HEMOGLOBIN 29.7 pg (27.0-31.0); MEAN CORPUSCULAR HGB CONC 34.1 g/dL (33.0-37.0); MEAN PLATELET VOLUME 7.5 fL (7.2-11.7); MONO # 0.3 K/uL (0.0-0.8); MONO % 5.1 % (0.0-10.0); NRBC % 0.1 % (0.0-2.0); RED CELL DISTRIBUTION WIDTH 13.1 % (11.5-14.5)
[2017-03-20 19:57] LABS: ALB/GLOB RATIO 0.9 (1.0-2.1); ALKALINE PHOSPHATASE 31 U/L (38-126); ALT/SGPT 21 U/L (9-52); AST/SGOT 14 U/L (14-36); BILIRUBIN,TOTAL 0.4 mg/dL (0.2-1.3); BLOOD UREA NITROGEN 10 mg/dL (7-17); CALCIUM 8.9 mg/dl (8.6-10.4); CARBON DIOXIDE 26 mmol/L (22-30); CHLORIDE 99 mmol/L (98-107); GFR AFRICAN-AMERICAN > 60; GLUCOSE,RANDOM 197 mg/dL (65-105); POTASSIUM 3.8 mmol/L (3.6-5.2); SODIUM 138 mmol/L (132-148); TOTAL PROTEIN 7.3 g/dL (6.3-8.3)
[2017-03-20] MEDS: IMMUNE GLOBULIN 50 MG/ML IV SCH (20:02)
[2017-03-21 00:32] VITALS: RESP 20
--- NOTE | 2017-03-21 01:09 | CP.PCM.PN ---
Subjective - Date & Time of Evaluation Date of Evaluation: 03/18/17 Time of Evaluation: 11:00 - Subjective Subjective: No complaints, family at bedside Objective - Vital Signs/Intake and Output Vital Signs (last 24 hours): Temp Pulse Resp BP Pulse Ox 98.4 F 78 20 143/86 96 03/20/17 23:30 03/21/17 00:00 03/20/17 23:30 03/20/17 23:30 03/20/17 23:30 - Medications Medications: Current Medications Acetaminophen (Tylenol 325mg Tab) 650 mg PO Q6 PRN PRN Reason: Headache Last Admin: 03/20/17 09:21 Dose: 650 mg Docusate Sodium (Colace) 100 mg PO BID [facility] Last Admin: 03/20/17 18:01 Dose: 100 mg Famotidine (Pepcid) 20 mg PO BID [facility] Last Admin: 03/20/17 18:02 Dose: 20 mg Methylprednisolone 250 mg/ (Sodium Chloride) 100 mls @ 200 mls/hr IVPB Q6H [facility] Stop: 03/22/17 23:59 Last Admin: 03/20/17 19:22 Dose: 200 mls/hr Immune Globulin (Octagam 5%) 360 mls @ 27 mls/hr IV Q24H [facility] Stop: 03/21/17 09:19 Last Admin: 03/20/17 20:02 Dose: 27 mls/hr Levetiracetam 500 mg/ Dextrose 105 mls @ 420 mls/hr IVPB Q12H [facility] Last Admin: 03/20/17 19:04 Dose: 420 mls/hr Lactulose (Enulose) 20 gm PO BID [facility] Last Admin: 03/20/17 18:02 Dose: 20 gm Ondansetron HCl (Zofran Inj) 4 mg IVP Q8 PRN PRN Reason: Nausea/Vomiting Last Admin: 03/17/17 13:53 Dose: 4 mg Temazepam (Restoril) 15 mg PO HS PRN PRN Reason: Sleep Last Admin: 03/19/17 22:38 Dose: 15 mg - Labs Labs: 03/20/17 19:36 03/20/17 19:36 - Head Exam Head Exam: ATRAUMATIC - Eye Exam Eye Exam: Normal appearance - ENT Exam ENT Exam: Mucous Membranes Dry - Respiratory Exam Respiratory Exam: NORMAL BREATHING PATTERN - Cardiovascular Exam Cardiovascular Exam: +S1, +S2 - GI/Abdominal Exam GI & Abdominal Exam: Normal Bowel Sounds - Extremities Exam Extremities Exam: Normal Inspection Assessment and Plan (1) Leukopenia Assessment & Plan: mild benign Status: Acute
--- NOTE | 2017-03-21 01:10 | CP.PCM.PN ---
Subjective - Date & Time of Evaluation Date of Evaluation: 03/19/17 Time of Evaluation: 18:05 - Subjective Subjective: Slightly confused, boyfriend at bedside Objective - Vital Signs/Intake and Output Vital Signs (last 24 hours): Temp Pulse Resp BP Pulse Ox 98.4 F 78 20 143/86 96 03/20/17 23:30 03/21/17 00:00 03/20/17 23:30 03/20/17 23:30 03/20/17 23:30 - Medications Medications: Current Medications Acetaminophen (Tylenol 325mg Tab) 650 mg PO Q6 PRN PRN Reason: Headache Last Admin: 03/20/17 09:21 Dose: 650 mg Docusate Sodium (Colace) 100 mg PO BID [facility] Last Admin: 03/20/17 18:01 Dose: 100 mg Famotidine (Pepcid) 20 mg PO BID [facility] Last Admin: 03/20/17 18:02 Dose: 20 mg Methylprednisolone 250 mg/ (Sodium Chloride) 100 mls @ 200 mls/hr IVPB Q6H [facility] Stop: 03/22/17 23:59 Last Admin: 03/20/17 19:22 Dose: 200 mls/hr Immune Globulin (Octagam 5%) 360 mls @ 27 mls/hr IV Q24H [facility] Stop: 03/21/17 09:19 Last Admin: 03/20/17 20:02 Dose: 27 mls/hr Levetiracetam 500 mg/ Dextrose 105 mls @ 420 mls/hr IVPB Q12H [facility] Last Admin: 03/20/17 19:04 Dose: 420 mls/hr Lactulose (Enulose) 20 gm PO BID [facility] Last Admin: 03/20/17 18:02 Dose: 20 gm Ondansetron HCl (Zofran Inj) 4 mg IVP Q8 PRN PRN Reason: Nausea/Vomiting Last Admin: 03/17/17 13:53 Dose: 4 mg Temazepam (Restoril) 15 mg PO HS PRN PRN Reason: Sleep Last Admin: 03/19/17 22:38 Dose: 15 mg - Labs Labs: 03/20/17 19:36 03/20/17 19:36 - Head Exam Head Exam: ATRAUMATIC - Eye Exam Eye Exam: Normal appearance - ENT Exam ENT Exam: Mucous Membranes Dry - Respiratory Exam Respiratory Exam: NORMAL BREATHING PATTERN - Cardiovascular Exam Cardiovascular Exam: +S1, +S2 - GI/Abdominal Exam GI & Abdominal Exam: Normal Bowel Sounds - Extremities Exam Extremities Exam: Normal Inspection Assessment and Plan (1) Leukopenia Assessment & Plan: mild benign Status: Acute
[2017-03-21] MEDS ORDERED: Bisacodyl 5mg EC Tab PO ONE (08:21)
[2017-03-21 08:27] LABS: BASO % 0.1 % (0.0-2.0); HEMATOCRIT 33.4 % (34.0-47.0); LYMPH # 0.6 K/uL (1.0-4.3); LYMPH % 10.4 % (20.0-40.0); MEAN CORPUSCULAR HEMOGLOBIN 29.7 pg (27.0-31.0); MEAN CORPUSCULAR HGB CONC 34.1 g/dL (33.0-37.0); MEAN PLATELET VOLUME 7.6 fL (7.2-11.7); MONO # 0.2 K/uL (0.0-0.8); MONO % 3.3 % (0.0-10.0); NRBC % 0.1 % (0.0-2.0); PLATELET COUNT 313 K/uL (130-400); RED CELL DISTRIBUTION WIDTH 13.1 % (11.5-14.5); WHITE BLOOD COUNT 5.3 K/uL (4.8-10.8)
--- NOTE | 2017-03-21 08:35 | CP.PCM.CON ---
<Rosetta Hoyt - Last Filed: 03/21/17 10:34> History of Present Illness - History of Present Illness History of Present Illness: GI Fellow PGY4 Consult Note This is a 21yF with no prior pmhx pw fevers and headache and was diagnosed with viral meningitis and treated with antiviral and steroid therapy. Pt's mentation is slow but is improving slowly per nursling. Consult to GI was placed for constipation for 9 days and pt has been on lactulose bid and colace bid. Pt reports abdominal pain and nausea with no BM for many days, denies any vomiting but says unable to eat because of abdominal pain. Pt refused enema yesterday and would like her mom to present at bedside for enema administration. Pt denies any prior issues of constipation, no hard stool or straining, reports having a bm daily. ROS: A 12pt ROS was obtained and was negative except as above. PmHx: None PsHx: None SHx: Lives in college dorm, denies tobacco, alcohol, illicit drugs FHx: Does not know about family hx of colon cancer Past Patient History - Past Medical History & Family History Past Medical History?: Yes - Past Social History Smoking Status: Never Smoked - CARDIAC Hx Cardiac Disorders: No - PULMONARY Hx Respiratory Disorders: No - NEUROLOGICAL Hx Neurological Disorder: Yes Hx Migraine: Yes - HEENT Hx HEENT Problems: No - RENAL Hx Chronic Kidney Disease: No - ENDOCRINE/METABOLIC Hx Endocrine Disorders: No - HEMATOLOGICAL/ONCOLOGICAL Hx Blood Disorders: No - INTEGUMENTARY Hx Dermatological Problems: No - MUSCULOSKELETAL/RHEUMATOLOGICAL Hx Musculoskeletal Disorders: No Hx Falls: No - GASTROINTESTINAL Hx Gastrointestinal Disorders: Yes Other/Comment: has a hernia - GENITOURINARY/GYNECOLOGICAL Hx Genitourinary Disorders: No - PSYCHIATRIC Hx Psychophysiologic Disorder: No Hx Substance Use: No - SURGICAL HISTORY Hx Surgeries: No - ANESTHESIA Hx Anesthesia: No Hx Anesthesia Reactions: No Hx Malignant Hyperthermia: No Has any member of the family had a problem w/ anesthesia?: No Meds Allergies/Adverse Reactions: Allergies Allergy/AdvReac Type Severity Reaction Status Date / Time pumpkin Allergy Verified 03/11/17 13:47 - Medications Medications: Current Medications Acetaminophen (Tylenol 325mg Tab) 650 mg PO Q6 PRN PRN Reason: Headache Last Admin: 03/21/17 03:55 Dose: 650 mg Famotidine (Pepcid) 20 mg PO BID [facility] Last Admin: 03/20/17 18:02 Dose: 20 mg Immune Globulin (Octagam 5%) 360 mls @ 27 mls/hr IV Q24H [facility] Stop: 03/21/17 09:19 Last Admin: 03/20/17 20:02 Dose: 27 mls/hr Levetiracetam 500 mg/ Dextrose 105 mls @ 420 mls/hr IVPB Q12H [facility] Last Admin: 03/20/17 19:04 Dose: 420 mls/hr Methylprednisolone (Solu-Medrol) 250 mg IVP Q12H [facility] Stop: 03/22/17 22:01 Methylprednisolone (Solu-Medrol) 250 mg IVP Q8 [facility] Stop: 03/21/17 22:01 Methylprednisolone (Solu-Medrol) 250 mg IVP DAILY [facility] Stop: 03/23/17 10:01 Ondansetron HCl (Zofran Inj) 4 mg IVP Q8 PRN PRN Reason: Nausea/Vomiting Last Admin: 03/17/17 13:53 Dose: 4 mg Polyethylene Glycol (Miralax) 17 gm PO TID [facility] Sodium Phosphate (Fleet Enema) 135 ml [place] DAILY PRN PRN Reason: Constipation Temazepam (Restoril) 15 mg PO HS PRN PRN Reason: Sleep Last Admin: 03/19/17 22:38 Dose: 15 mg Physical Exam - Constitutional Appears: No Acute Distress, Younger Than Stated Age - Head Exam Head Exam: ATRAUMATIC, NORMAL INSPECTION, NORMOCEPHALIC - Eye Exam Eye Exam: EOMI, Normal appearance, PERRL Pupil Exam: PERRL - ENT Exam ENT Exam: Mucous Membranes Moist, Normal Exam - Neck Exam Neck exam: Positive for: Normal Inspection - Respiratory Exam Respiratory Exam: Clear to Auscultation Bilateral, NORMAL BREATHING PATTERN - Cardiovascular Exam Cardiovascular Exam: RRR, +S1, +S2 - GI/Abdominal Exam GI & Abdominal Exam: Distended, Hypoactive Bowel Sounds, Tenderness. absent: Organomegaly - Rectal Exam Rectal Exam: Deferred - Extremities Exam Extremities exam: Positive for: normal inspection. Negative for: pedal edema - Back Exam Back exam: NORMAL INSPECTION - Neurological Exam Neurological exam: Alert, Oriented x3 - Psychiatric Exam Psychiatric exam: Normal Affect, Normal Mood - Skin Skin Exam: Dry, Intact, Normal Color, Warm Results - Vital Signs Recent Vital Signs: Last Vital Signs Temp 98.4 F 03/20/17 23:30 Pulse 78 03/21/17 00:00 Resp 20 03/20/17 23:30 BP 143/86 03/20/17 23:30 Pulse Ox 96 03/20/17 23:30 - Labs Result Diagrams: 03/21/17 08:18 03/21/17 08:18 Labs: Laboratory Results - last 24 hr 03/17/17 03/20/17 03/20/17 08:26 19:36 19:36 WBC 5.0 D RBC 3.94 Hgb 11.7 Hct 34.3 MCV 87.1 MCH 29.7 MCHC 34.1 RDW 13.1 Plt Count 321 MPV 7.5 Neut % (Auto) 83.9 H Lymph % (Auto) 10.9 L Schleicher % (Auto) 5.1 Eos % (Auto) 0.0 Baso % (Auto) 0.1 Neut # 4.2 Lymph # 0.6 L Schleicher # 0.3 Eos # 0.0 Baso # 0.0 Sodium 138 Potassium 3.8 Chloride 99 Carbon Dioxide 26 Anion Gap 18 BUN 10 Creatinine 0.4 L Est GFR ( Amer) > 60 Est GFR (Non-Af Amer) > 60 Random Glucose 197 H Calcium 8.9 Total Bilirubin 0.4 AST 14 ALT 21 Alkaline Phosphatase 31 L Total Protein 7.3 Albumin 3.5 Globulin 3.8 Albumin/Globulin Ratio 0.9 L HIV-1 RNA Qnt (RT-PCR) <1.30 not detected 03/21/17 08:18 WBC 5.3 RBC 3.84 Hgb 11.4 Hct 33.4 L MCV 87.0 MCH 29.7 MCHC 34.1 RDW 13.1 Plt Count 313 MPV 7.6 Neut % (Auto) 86.2 H Lymph % (Auto) 10.4 L Schleicher % (Auto) 3.3 Eos % (Auto) 0.0 Baso % (Auto) 0.1 Neut # 4.6 Lymph # 0.6 L Schleicher # 0.2 Eos # 0.0 Baso # 0.0 Sodium Potassium Chloride Carbon Dioxide Anion Gap BUN Creatinine Est GFR ( Amer) Est GFR (Non-Af Amer) Random Glucose Calcium Total Bilirubin AST ALT Alkaline Phosphatase Total Protein Albumin Globulin Albumin/Globulin Ratio HIV-1 RNA Qnt (RT-PCR) Assessment & Plan - Assessment and Plan (Free Text) Assessment: This is a 21yF pw fevers/headaches and diagnosed with viral meningitis. 1. Viral Meningitis 2. Constipation Plan: -Continue current treatment for viral meningitis per ID and primary team -Recommend aggressive bowel regimen with Miralax tid, Dulcolax 10mg one time dose, and enema prn constipation -If no improvement with bowel regimen, will order Abdominal Xray -Will continue to follow pt <Dao Benito MD - Last Filed: 03/21/17 15:45> Meds - Medications Medications: Current Medications Acetaminophen (Tylenol 325mg Tab) 650 mg PO Q6 PRN PRN Reason: Headache Last Admin: 03/21/17 03:55 Dose: 650 mg Enoxaparin Sodium (Lovenox) 30 mg [place] DAILY [facility] Famotidine (Pepcid) 20 mg PO BID [facility] Last Admin: 03/21/17 09:11 Dose: 20 mg Levetiracetam 500 mg/ Dextrose 105 mls @ 420 mls/hr IVPB Q12H [facility] Last Admin: 03/21/17 08:58 Dose: 420 mls/hr Lactulose (Enulose) 20 gm PO BID [facility] Methylprednisolone (Solu-Medrol) 250 mg IVP Q12H [facility] Stop: 03/22/17 22:01 Methylprednisolone (Solu-Medrol) 250 mg IVP Q8 [facility] Stop: 03/21/17 22:01 Last Admin: 03/21/17 13:43 Dose: 250 mg Methylprednisolone (Solu-Medrol) 250 mg IVP DAILY [facility] Stop: 03/23/17 10:01 Ondansetron HCl (Zofran Inj) 4 mg IVP Q8 PRN PRN Reason: Nausea/Vomiting Last Admin: 03/17/17 13:53 Dose: 4 mg Polyethylene Glycol (Miralax) 17 gm PO TID [facility] Last Admin: 03/21/17 13:43 Dose: 17 gm Sodium Phosphate (Fleet Enema) 135 ml AR DAILY PRN PRN Reason: Constipation Temazepam (Restoril) 15 mg PO HS PRN PRN Reason: Sleep Last Admin: 03/19/17 22:38 Dose: 15 mg Results - Vital Signs Recent Vital Signs: Last Vital Signs Temp 97.7 F 03/21/17 09:28 Pulse 95 H 03/21/17 12:00 Resp 20 03/21/17 09:28 BP 132/86 03/21/17 09:28 Pulse Ox 95 03/21/17 09:28 - Labs Result Diagrams: 03/21/17 08:18 03/21/17 08:18 Labs: Laboratory Results - last 24 hr 03/17/17 03/20/17 03/20/17 08:26 19:36 19:36 WBC 5.0 D RBC 3.94 Hgb 11.7 Hct 34.3 MCV 87.1 MCH 29.7 MCHC 34.1 RDW 13.1 Plt Count 321 MPV 7.5 Neut % (Auto) 83.9 H Lymph % (Auto) 10.9 L Schleicher % (Auto) 5.1 Eos % (Auto) 0.0 Baso % (Auto) 0.1 Neut # 4.2 Lymph # 0.6 L Schleicher # 0.3 Eos # 0.0 Baso # 0.0 Sodium 138 Potassium 3.8 Chloride 99 Carbon Dioxide 26 Anion Gap 18 BUN 10 Creatinine 0.4 L Est GFR ( Amer) > 60 Est GFR (Non-Af Amer) > 60 Random Glucose 197 H Calcium 8.9 Phosphorus Magnesium Total Bilirubin 0.4 AST 14 ALT 21 Alkaline Phosphatase 31 L Total Protein 7.3 Albumin 3.5 Globulin 3.8 Albumin/Globulin Ratio 0.9 L Prolactin HIV-1 RNA Qnt (RT-PCR) <1.30 not detected Blood Parasites Smear 03/21/17 03/21/17 08:18 08:18 WBC 5.3 RBC 3.84 Hgb 11.4 Hct 33.4 L MCV 87.0 MCH 29.7 MCHC 34.1 RDW 13.1 Plt Count 313 MPV 7.6 Neut % (Auto) 86.2 H Lymph % (Auto) 10.4 L Schleicher % (Auto) 3.3 Eos % (Auto) 0.0 Baso % (Auto) 0.1 Neut # 4.6 Lymph # 0.6 L Schleicher # 0.2 Eos # 0.0 Baso # 0.0 Sodium 138 Potassium 3.9 Chloride 98 Carbon Dioxide 28 Anion Gap 16 BUN 10 Creatinine 0.5 L Est GFR ( Amer) > 60 Est GFR (Non-Af Amer) > 60 Random Glucose 134 H Calcium 8.9 Phosphorus 3.7 Magnesium 2.2 Total Bilirubin 0.4 AST 15 ALT 22 Alkaline Phosphatase 31 L Total Protein 7.4 Albumin 3.4 L Globulin 4.0 H Albumin/Globulin Ratio 0.9 L Prolactin 32.1 H HIV-1 RNA Qnt (RT-PCR) Blood Parasites Smear Negative Attending/Attestation - Attestation I have personally seen and examined this patient.: Yes I have fully participated in the care of the patient.: Yes I have reviewed all pertinent clinical information: Yes Notes (Text): 03/21/17 15:41 Patient seen with GI fellow on rounds this am. This is a 21 year old F presenting with fevers/headaches and diagnosed with viral meningitis currently treatment as per ID. GI consulted for constipation for past 9 days. In terms of pain management received toradol as per nursing staff. Will start aggresive bowel regimen. On physical exam no s/s of obstruction. Will start miralax po and tap water enemas. If not relieved will get abdominal f;lat plate. Decreased appetite likely due to primary disease. Will follow till she achieves bowel movement
--- NOTE | 2017-03-21 09:00 | PN ---
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 PHYSICAL EXAMINATION: VITAL SIGNS: Blood pressure 143/86, mean arterial pressure of 105, respiratory rate 18, temperature 98.4, pulse rate 86 and regular. NEUROLOGIC: Patient is awake, alert and oriented to person, place and time. No sign of psychiatric symptoms, depression or suicidal ideation. Patient is back to her normal baseline mental status. She complains of generalized weakness. On examination, no lateralizing sign at present. Examination is unchanged. The patient did not have any change in mental status after fall from the bed. No witnessed seizure activities. ASSESSMENT AND PLAN: Since we started on steroids and intravenous immunoglobulin, patient has been recovered remarkably. The workup from infectious source does not show any infectious origin consistent with her change in mental status. The patient does not show any other metabolic process or malignant process during her workup, during CAT scan of the abdomen and pelvis. Her vital signs are stable at present. She has been completed her intravenous immunoglobulin as recommended. I would like to taper methylprednisolone today 3 times a day, tomorrow twice a day, day after tomorrow once a day, and then steroids can be stopped. From a neurological point of view, if the patient is stable, then patient can be discharged and should have a followup visit as outpatient following her recommended therapy. 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 The patient should continue hydration and getting out of bed and physical therapy should be entertained as early as possible. Chago Mccormack MD
[2017-03-21 09:04] LABS: ALKALINE PHOSPHATASE 31 U/L (38-126); ALT/SGPT 22 U/L (9-52); AST/SGOT 15 U/L (14-36); BILIRUBIN,TOTAL 0.4 mg/dL (0.2-1.3); BLOOD UREA NITROGEN 10 mg/dL (7-17); CALCIUM 8.9 mg/dl (8.6-10.4); CARBON DIOXIDE 28 mmol/L (22-30); CHLORIDE 98 mmol/L (98-107); GFR AFRICAN-AMERICAN > 60; GLUCOSE,RANDOM 134 mg/dL (65-105); PHOSPHOROUS 3.7 mg/dL (2.5-4.5); POTASSIUM 3.9 mmol/L (3.6-5.2); SODIUM 138 mmol/L (132-148); TOTAL PROTEIN 7.4 g/dL (6.3-8.3)
[2017-03-21] MEDS: POLYETHYLENE GLYCOL 3350 17 GM/Dose PACKET PO SCH ×3 (09:11→17:43)
[2017-03-21 09:12] LABS: ALB/GLOB RATIO 0.9 (1.0-2.1)
[2017-03-21 10:02] LABS: MAGNESIUM 2.2 mg/dL (1.6-2.3)
[2017-03-21 10:08] LABS: INTRACELLULAR PARASITE NEGATIVE (NEGATIVE)
--- NOTE | 2017-03-21 10:14 | CP.PCM.PN ---
Subjective - Date & Time of Evaluation Date of Evaluation: 03/21/17 Time of Evaluation: 07:35 - Subjective Subjective: PGY2 Resident - Medicine Progress Note Patient seen and examined at bedside. No overnight events per nursing. Pt lying in bed, comfortably. Mentation continues to be slowed. She reports frustration over being in the hospital. GI on board for extended period of constipation - reports no BM since 03/15. Denies f/c, neck pain, diarrhea, confusion, or any additional complaints. Objective - Vital Signs/Intake and Output Vital Signs (last 24 hours): Temp Pulse Resp BP Pulse Ox 97.7 F 87 20 132/86 95 03/21/17 09:28 03/21/17 09:28 03/21/17 09:28 03/21/17 09:28 03/21/17 09:28 Intake and Output: 03/21/17 03/21/17 06:59 18:59 Intake Total 389 Balance 389 - Medications Medications: Current Medications Acetaminophen (Tylenol 325mg Tab) 650 mg PO Q6 PRN PRN Reason: Headache Last Admin: 03/21/17 03:55 Dose: 650 mg Famotidine (Pepcid) 20 mg PO BID [facility] Last Admin: 03/21/17 09:11 Dose: 20 mg Levetiracetam 500 mg/ Dextrose 105 mls @ 420 mls/hr IVPB Q12H [facility] Last Admin: 03/21/17 08:58 Dose: 420 mls/hr Methylprednisolone (Solu-Medrol) 250 mg IVP Q12H [facility] Stop: 03/22/17 22:01 Methylprednisolone (Solu-Medrol) 250 mg IVP Q8 [facility] Stop: 03/21/17 22:01 Last Admin: 03/21/17 08:58 Dose: 250 mg Methylprednisolone (Solu-Medrol) 250 mg IVP DAILY [facility] Stop: 03/23/17 10:01 Ondansetron HCl (Zofran Inj) 4 mg IVP Q8 PRN PRN Reason: Nausea/Vomiting Last Admin: 03/17/17 13:53 Dose: 4 mg Polyethylene Glycol (Miralax) 17 gm PO TID [facility] Last Admin: 03/21/17 09:11 Dose: 17 gm Sodium Phosphate (Fleet Enema) 135 ml [place] DAILY PRN PRN Reason: Constipation Temazepam (Restoril) 15 mg PO HS PRN PRN Reason: Sleep Last Admin: 03/19/17 22:38 Dose: 15 mg - Labs Labs: 03/21/17 08:18 03/21/17 08:18 - Additional Findings Additional findings: - Constitutional Appears: Non-toxic, No Acute Distress - Head Exam Head Exam: ATRAUMATIC, NORMAL INSPECTION, NORMOCEPHALIC - no nucal rigidity - Eye Exam Eye Exam: EOMI - ENT Exam ENT Exam: Mucous Membranes Moist - Respiratory Exam Respiratory Exam: NORMAL BREATHING PATTERN. absent: Respiratory Distress - Cardiovascular Exam Cardiovascular Exam: +S1, +S2 - GI/Abdominal Exam GI & Abdominal Exam: Soft, Normal Bowel Sounds. absent: Tenderness - Extremities Exam Extremities Exam: Full ROM - Neurological Exam Neurological Exam: Alert, Awake, CN II-XII Intact - Psychiatric Exam Psychiatric exam: Normal mood, Flat Affect - Skin Skin Exam: Dry, Intact, Normal Color, Warm Assessment and Plan - Assessment and Plan (Free Text) Assessment: This is a 21 yo female with past medical hx of migraines presenting with headache and neck stiffness, spinal tap performed, likely viral meningitis Viral meningitis 03/21: Per Dr. Metzger (ID), stop all IV Abx. Per Dr. Mccormack (Neuro) - Taper Methylprednisolone today TID, 03/22 to BID, 03/23 to qD, then steroids may be stopped. 03/18: CSF negative. BC negative x1d. Blood parasite negative. +Cannabinoids. +ANA6, RPR nonreactive -> consult placed to Dr. Desai, rheumatology. Followup [employer] + DS-DNA CSF showed lymphocytic predominance with elevated protein. 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 pending official read. Head CT negative, repeat head ct negative Neurology following- it is Dr. Mccormack- Dr. Beatty was only covering this past weekend. ID following- Dr. Metzger - help appreciated. * IV acyclovir has been discontinued in favor of immune globulin and keppra * -IV methprednisolone added * cont cefepime * IV IG and IV keppra have been added * Second ID consult placed with Dr. Jain continue droplet precautions Nausea and vomiting 03/21: no episodes of n/v for several days 03/18: Last episode of n/v yesterday. Feeling better today. -X ray shows no evidence of obstruction -continue zofran for nausea -perhaps related to underlying meningitis -continue to monitor Constipation 03/21: GI Consult, Dr. Pierre, f/u recs * Recommend aggressive bowel regimen with Miralax tid, Dulcolax 10mg one time de guzman, and enema prn constipation. If no improvement with bowel regimen, will order Abdominal Xray. 03/18: No BM since 03/09. Colace inc to BID. Lactulose once. -no sign of obstruction -continue colace -awaiting BM Elevated prolactin 03/21: repeat prolactin again elevated at 32.1H -may be secondary to increased emotional/physical stress -MRI brain ordered -repeat prolactin back in normal range GI/DVT ppx -continue pepcid daily -SCDs Case discussed with attending. All medical management as per Dr. Jaxon Aguila
--- NOTE | 2017-03-21 12:18 | CP.PCM.PN ---
Subjective - Date & Time of Evaluation Date of Evaluation: 03/21/17 Time of Evaluation: 09:00 - Subjective Subjective: FEELS FINE AWAKE ALERT RESPONSIVE PT IN PROGRESS OFF ANTIBIOTICS Objective - Vital Signs/Intake and Output Vital Signs (last 24 hours): Temp Pulse Resp BP Pulse Ox 97.7 F 87 20 132/86 95 03/21/17 09:28 03/21/17 09:28 03/21/17 09:28 03/21/17 09:28 03/21/17 09:28 Intake and Output: 03/21/17 03/21/17 06:59 18:59 Intake Total 389 Balance 389 - Medications Medications: Current Medications Acetaminophen (Tylenol 325mg Tab) 650 mg PO Q6 PRN PRN Reason: Headache Last Admin: 03/21/17 03:55 Dose: 650 mg Famotidine (Pepcid) 20 mg PO BID [facility] Last Admin: 03/21/17 09:11 Dose: 20 mg Levetiracetam 500 mg/ Dextrose 105 mls @ 420 mls/hr IVPB Q12H [facility] Last Admin: 03/21/17 08:58 Dose: 420 mls/hr Methylprednisolone (Solu-Medrol) 250 mg IVP Q12H [facility] Stop: 03/22/17 22:01 Methylprednisolone (Solu-Medrol) 250 mg IVP Q8 [facility] Stop: 03/21/17 22:01 Last Admin: 03/21/17 08:58 Dose: 250 mg Methylprednisolone (Solu-Medrol) 250 mg IVP DAILY [facility] Stop: 03/23/17 10:01 Ondansetron HCl (Zofran Inj) 4 mg IVP Q8 PRN PRN Reason: Nausea/Vomiting Last Admin: 03/17/17 13:53 Dose: 4 mg Polyethylene Glycol (Miralax) 17 gm PO TID [facility] Last Admin: 03/21/17 09:11 Dose: 17 gm Sodium Phosphate (Fleet Enema) 135 ml [place] DAILY PRN PRN Reason: Constipation Temazepam (Restoril) 15 mg PO HS PRN PRN Reason: Sleep Last Admin: 03/19/17 22:38 Dose: 15 mg - Labs Labs: 03/21/17 08:18 03/21/17 08:18 - Constitutional Appears: Non-toxic, Chronically Ill - Head Exam Head Exam: NORMOCEPHALIC - Eye Exam Eye Exam: PERRL. absent: Scleral icterus - ENT Exam ENT Exam: Mucous Membranes Dry - Neck Exam Neck Exam: absent: Lymphadenopathy - Respiratory Exam Respiratory Exam: Decreased Breath Sounds - Cardiovascular Exam Cardiovascular Exam: REGULAR RHYTHM - GI/Abdominal Exam GI & Abdominal Exam: Soft. absent: Guarding, Rigid - Rectal Exam Rectal Exam: Deferred - Exam Exam: NORMAL INSPECTION - Back Exam Back Exam: absent: CVA tenderness (L), CVA tenderness (R) - Neurological Exam Neurological Exam: Alert, Awake, CN II-XII Intact, Normal Gait, Oriented x3 Neuro motor strength exam: Left Upper Extremity: 5, Right Upper Extremity: 5, Left Lower Extremity: 5, Right Lower Extremity: 5 - Psychiatric Exam Psychiatric exam: Normal Mood - Skin Skin Exam: Dry, Intact Assessment and Plan (1) Headache Status: Acute (2) Meningitis Status: Acute - Assessment and Plan (Free Text) Assessment: VIRAL MENINGITIS RESOLVED POST VIRAL SYNDROME RESOLVING D/C ALL ANTIBIOTICS FOLLOW UP WITH DR QUINTANILLA
--- NOTE | 2017-03-21 14:41 | RAD ---
Abdomen two views History: Constipation. Comparison: CT scan dated 03/16/2017 Findings: Severe fecal retention in the colon with prominent retained contrast throughout the colon. Few distended loops of small bowel seen within the mid and lower abdomen, nonspecific. Impression: Severe fecal retention in the colon with prominent retained contrast throughout the colon. Few distended loops of small bowel seen within the mid and lower abdomen, nonspecific.
--- NOTE | 2017-03-21 17:54 | CP.PCM.PN ---
Subjective - Date & Time of Evaluation Date of Evaluation: 03/21/17 Time of Evaluation: 09:20 - Subjective Subjective: clinically same Objective - Vital Signs/Intake and Output Vital Signs (last 24 hours): Temp Pulse Resp BP Pulse Ox 98.2 F 88 20 135/83 94 L 03/21/17 16:00 03/21/17 16:00 03/21/17 16:00 03/21/17 16:00 03/21/17 16:00 Intake and Output: 03/21/17 03/21/17 06:59 18:59 Intake Total 389 400 Balance 389 400 - Medications Medications: Current Medications Acetaminophen (Tylenol 325mg Tab) 650 mg PO Q6 PRN PRN Reason: Headache Last Admin: 03/21/17 03:55 Dose: 650 mg Enoxaparin Sodium (Lovenox) 30 mg SC DAILY [facility] Famotidine (Pepcid) 20 mg PO BID [facility] Last Admin: 03/21/17 09:11 Dose: 20 mg Levetiracetam 500 mg/ Dextrose 105 mls @ 420 mls/hr IVPB Q12H [facility] Last Admin: 03/21/17 08:58 Dose: 420 mls/hr Lactulose (Enulose) 20 gm PO BID [facility] Last Admin: 03/21/17 17:43 Dose: Not Given Methylprednisolone (Solu-Medrol) 250 mg IVP Q12H [facility] Stop: 03/22/17 22:01 Methylprednisolone (Solu-Medrol) 250 mg IVP Q8 [facility] Stop: 03/21/17 22:01 Last Admin: 03/21/17 13:43 Dose: 250 mg Methylprednisolone (Solu-Medrol) 250 mg IVP DAILY [facility] Stop: 03/23/17 10:01 Ondansetron HCl (Zofran Inj) 4 mg IVP Q8 PRN PRN Reason: Nausea/Vomiting Last Admin: 03/17/17 13:53 Dose: 4 mg Polyethylene Glycol (Miralax) 17 gm PO TID [facility] Last Admin: 03/21/17 17:43 Dose: Not Given Sodium Phosphate (Fleet Enema) 135 ml [place] DAILY PRN PRN Reason: Constipation Temazepam (Restoril) 15 mg PO HS PRN PRN Reason: Sleep Last Admin: 03/19/17 22:38 Dose: 15 mg - Labs Labs: 03/21/17 08:18 03/21/17 08:18 - Constitutional Appears: Well - Head Exam Head Exam: ATRAUMATIC, NORMAL INSPECTION, NORMOCEPHALIC - Eye Exam Eye Exam: EOMI, Normal appearance, PERRL Pupil Exam: NORMAL ACCOMODATION, PERRL - ENT Exam ENT Exam: Mucous Membranes Moist, Normal Exam - Neck Exam Neck Exam: Full ROM, Normal Inspection. absent: Lymphadenopathy - Respiratory Exam Respiratory Exam: Decreased Breath Sounds - Cardiovascular Exam Cardiovascular Exam: REGULAR RHYTHM, +S1, +S2 - GI/Abdominal Exam GI & Abdominal Exam: Soft, Diminished Bowel Sounds - Rectal Exam Rectal Exam: Deferred
[2017-03-21 19:30] LABS: RNP Interpretation Negative (Negative)
[2017-03-22 08:02] LABS: HEMATOCRIT 34.6 % (34.0-47.0); LYMPH # 0.7 K/uL (1.0-4.3); LYMPH % 11.7 % (20.0-40.0); MEAN CELL VOLUME 87.1 fL (81.0-99.0); MEAN CORPUSCULAR HGB CONC 34.4 g/dL (33.0-37.0); MEAN PLATELET VOLUME 7.3 fL (7.2-11.7); MONO # 0.3 K/uL (0.0-0.8); MONO % 5.4 % (0.0-10.0); NRBC % 0.2 % (0.0-2.0); RED CELL DISTRIBUTION WIDTH 13.1 % (11.5-14.5); WHITE BLOOD COUNT 6.3 K/uL (4.8-10.8)
[2017-03-22 08:07] LABS: CHLORIDE 100 mmol/L (98-107)
[2017-03-22 08:08] LABS: POTASSIUM 4.1 mmol/L (3.6-5.2); SODIUM 138 mmol/L (132-148)
[2017-03-22 08:12] LABS: ALB/GLOB RATIO 0.9 (1.0-2.1); ALKALINE PHOSPHATASE 32 U/L (38-126); ALT/SGPT 31 U/L (9-52); AST/SGOT 19 U/L (14-36); BILIRUBIN,TOTAL 0.6 mg/dL (0.2-1.3); BLOOD UREA NITROGEN 15 mg/dL (7-17); CARBON DIOXIDE 26 mmol/L (22-30); GFR AFRICAN-AMERICAN > 60; GLUCOSE,RANDOM 112 mg/dL (65-105); PHOSPHOROUS 4.6 mg/dL (2.5-4.5); TOTAL PROTEIN 7.8 g/dL (6.3-8.3)
[2017-03-22 08:13] LABS: MAGNESIUM 2.1 mg/dL (1.6-2.3)
[2017-03-22] MEDS: Enoxaparin 30 mg Syringe SC SCH (09:14)
[2017-03-22] MEDS: POLYETHYLENE GLYCOL 3350 17 GM/Dose PACKET PO SCH ×3 (09:14→18:31)
--- NOTE | 2017-03-22 09:30 | CP.PCM.PN ---
Subjective - Date & Time of Evaluation Date of Evaluation: 03/22/17 Time of Evaluation: 07:40 - Subjective Subjective: PGY2 Resident - Medicine Progress Note Patient seen and examined at bedside. No overnight events per nursing. Pt lying in bed, comfortably. Mentation significantly improved today, no showing the signs of slowing displayed yesterday. Reports a large watery BM yesterday after her enema. +Gas. She re-states she would like to go home. Objective - Vital Signs/Intake and Output Vital Signs (last 24 hours): Temp Pulse Resp BP Pulse Ox 98.2 F 100 H 20 117/78 94 L 03/22/17 08:23 03/22/17 08:23 03/22/17 08:23 03/22/17 08:23 03/22/17 08:23 - Medications Medications: Current Medications Acetaminophen (Tylenol 325mg Tab) 650 mg PO Q6 PRN PRN Reason: Headache Last Admin: 03/21/17 03:55 Dose: 650 mg Enoxaparin Sodium (Lovenox) 30 mg SC DAILY [facility] Last Admin: 03/22/17 09:14 Dose: 30 mg Famotidine (Pepcid) 20 mg PO BID [facility] Last Admin: 03/22/17 09:14 Dose: 20 mg Levetiracetam 500 mg/ Dextrose 105 mls @ 420 mls/hr IVPB Q12H [facility] Last Admin: 03/22/17 09:00 Dose: 420 mls/hr Lactulose (Enulose) 20 gm PO BID [facility] Last Admin: 03/22/17 09:13 Dose: 20 gm Methylprednisolone (Solu-Medrol) 250 mg IVP Q12H [facility] Stop: 03/22/17 22:01 Methylprednisolone (Solu-Medrol) 250 mg IVP DAILY [facility] Stop: 03/23/17 10:01 Ondansetron HCl (Zofran Inj) 4 mg IVP Q8 PRN PRN Reason: Nausea/Vomiting Last Admin: 03/17/17 13:53 Dose: 4 mg Polyethylene Glycol (Miralax) 17 gm PO TID [facility] Last Admin: 03/22/17 09:14 Dose: 17 gm Sodium Phosphate (Fleet Enema) 135 ml [place] DAILY PRN PRN Reason: Constipation Temazepam (Restoril) 15 mg PO HS PRN PRN Reason: Sleep Last Admin: 03/19/17 22:38 Dose: 15 mg - Labs Labs: 03/22/17 07:48 03/22/17 07:48 - Additional Findings Additional findings: - Constitutional Appears: Non-toxic, No Acute Distress -mentation faster today - Head Exam Head Exam: ATRAUMATIC, NORMAL INSPECTION, NORMOCEPHALIC - no nucal rigidity - Eye Exam Eye Exam: EOMI - ENT Exam ENT Exam: Mucous Membranes Moist - Respiratory Exam Respiratory Exam: NORMAL BREATHING PATTERN. absent: Respiratory Distress - Cardiovascular Exam Cardiovascular Exam: Regular Rate, +S1, +S2 - GI/Abdominal Exam GI & Abdominal Exam: Soft, Normal Bowel Sounds. absent: Tenderness - Extremities Exam Extremities Exam: Full ROM - Neurological Exam Neurological Exam: Alert, Awake, CN II-XII Intact - Psychiatric Exam Psychiatric exam: Normal mood, Flat Affect - Skin Skin Exam: Dry, Intact, Normal Color, Warm Assessment and Plan - Assessment and Plan (Free Text) Assessment: This is a 21 yo female with past medical hx of migraines presenting with headache and neck stiffness, spinal tap performed, likely viral meningitis Viral meningitis 03/22: Per Dr. Mccormack (neuro), if stable, patient may be discharged tomorrow 03/23 after final steroid dose w/ Neuro followup. 03/21: Per Dr. Metzger (ID), stop all IV Abx. Per Dr. Mccormack (Neuro) - Taper Methylprednisolone today TID, 03/22 to BID, 03/23 to qD, then steroids may be stopped. 03/18: CSF negative. BC negative x1d. Blood parasite negative. +Cannabinoids. +ANA6, RPR nonreactive -> consult placed to Dr. Desai, rheumatology. Followup [employer] + DS-DNA CSF showed lymphocytic predominance with elevated protein. 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 pending official read. Head CT negative, repeat head ct negative Neurology following- it is Dr. Mccormack- Dr. Beatty was only covering this past weekend. ID following- Dr. Metzger - help appreciated. * IV acyclovir has been discontinued in favor of immune globulin and keppra * -IV methprednisolone added * cont cefepime * IV IG and IV keppra have been added * Second ID consult placed with Dr. Jain continue droplet precautions Nausea and vomiting 03/22: no episodes of n/v for several days 03/18: Last episode of n/v yesterday. Feeling better today. -X ray shows no evidence of obstruction -continue zofran for nausea -perhaps related to underlying meningitis -continue to monitor Constipation 03/22: GI signing off - Patient passed large watery BM after enema yesterday. From GI perspective ok to discharge home with subsequent outpatient follow up. * abdominal Xray 03/21 - Severe fecal retention in the colon with prominent retained contrast throughout the colon. Few distended loops of small bowel seen within the mid and lower abdomen, nonspecific. 03/21: GI Consult, Dr. Pierre, f/u recs * Recommend aggressive bowel regimen with Miralax tid, Dulcolax 10mg one time de guzman, and enema prn constipation. If no improvement with bowel regimen, will order Abdominal Xray. 03/18: No BM since 03/09. Colace inc to BID. Lactulose once. -no sign of obstruction -continue colace -awaiting BM Elevated prolactin 03/21: repeat prolactin again elevated at 32.1H -may be secondary to increased emotional/physical stress -MRI brain ordered -repeat prolactin back in normal range GI/DVT ppx -continue pepcid daily -SCDs Case discussed with attending. All medical management as per Dr. Jaxon Aguila
--- NOTE | 2017-03-22 10:20 | PN ---
DATE: NEUROLOGICAL PROBLEM: Possible autoimmune encephalitis/viral encephalitis. PHYSICAL EXAMINATION VITAL SIGNS: Blood pressure 135/83, mean arterial pressure of 100, respiratory rate 16, temperature 98.2, and pulse rate 77. GENERAL: The patient is awake, alert, oriented to person, place and time. No confusion. No disorientation. No delusional behavior for the last one week. Denies headache. She was ambulatory on her own with the slight discomfortness. The patient's examination, which is unchanged compared with yesterday's examination. The patient has been on tapering dose of steroids, which is 250 mg of methylprednisolone twice a day, tomorrow once a day, and then can be discontinued. The patient also completed intravenous immunoglobulin. LABORATORY DATA: Her recent blood workup; WBC 5.3, hemoglobin 11.4, hematocrit 33.4, platelets 313. Sodium 138, potassium 3.9, chloride 98, bicarbonate 28, BUN 10, creatinine 0.5. Glucose 134. Immunology workup [employer] antibody less than 1, anti-Hu antibody is not detected. Yo antibody is not detected. Blood smear for parasites negative. Quantiferon intermittently high. HIV was negative. ASSESSMENT AND PLAN: From neurological point of view, the patient showed remarkable improvement with the treatment given. So far there is no infectious source being identified. The patient is off from antibiotics. Following my recommendation from the neurological point of view, the patient can be discharged tomorrow if medically stable and should have followup visit with me as outpatient. Chago Mccormack MD
--- NOTE | 2017-03-22 10:34 | CP.PCM.PN ---
<Rosetta Hoyt - Last Filed: 03/22/17 10:18> Subjective - Date & Time of Evaluation Date of Evaluation: 03/22/17 Time of Evaluation: 06:30 - Subjective Subjective: GI Fellow PGY4 Progress Note Pt seen and evaluated at bedside, pt says she feels better and is ready to go home. Denies any abdominal pain, nausea or vomiting. She says she does not like the hospital food. Pt reports having a large watery BM after enema and is passing gas. Per nursing pt refused last night's dose of miralax. ROS: A 12pt ROS was obtained and was negative except as above. Objective - Vital Signs/Intake and Output Vital Signs (last 24 hours): Temp Pulse Resp BP Pulse Ox 98.2 F 100 H 20 117/78 94 L 03/22/17 08:23 03/22/17 08:23 03/22/17 08:23 03/22/17 08:23 03/22/17 08:23 - Medications Medications: Current Medications Acetaminophen (Tylenol 325mg Tab) 650 mg PO Q6 PRN PRN Reason: Headache Last Admin: 03/21/17 03:55 Dose: 650 mg Enoxaparin Sodium (Lovenox) 30 mg SC DAILY [facility] Last Admin: 03/22/17 09:14 Dose: 30 mg Famotidine (Pepcid) 20 mg PO BID [facility] Last Admin: 03/22/17 09:14 Dose: 20 mg Levetiracetam 500 mg/ Dextrose 105 mls @ 420 mls/hr IVPB Q12H [facility] Last Admin: 03/22/17 09:00 Dose: 420 mls/hr Lactulose (Enulose) 20 gm PO BID [facility] Last Admin: 03/22/17 09:13 Dose: 20 gm Methylprednisolone (Solu-Medrol) 250 mg IVP Q12H [facility] Stop: 03/22/17 22:01 Methylprednisolone (Solu-Medrol) 250 mg IVP DAILY [facility] Stop: 03/23/17 10:01 Ondansetron HCl (Zofran Inj) 4 mg IVP Q8 PRN PRN Reason: Nausea/Vomiting Last Admin: 03/17/17 13:53 Dose: 4 mg Polyethylene Glycol (Miralax) 17 gm PO TID [facility] Last Admin: 03/22/17 09:14 Dose: 17 gm Sodium Phosphate (Fleet Enema) 135 ml [place] DAILY PRN PRN Reason: Constipation Temazepam (Restoril) 15 mg PO HS PRN PRN Reason: Sleep Last Admin: 03/19/17 22:38 Dose: 15 mg - Labs Labs: 03/22/17 07:48 03/22/17 07:48 - Constitutional Appears: Non-toxic, No Acute Distress - Head Exam Head Exam: ATRAUMATIC, NORMAL INSPECTION, NORMOCEPHALIC - Eye Exam Eye Exam: EOMI, Normal appearance, PERRL - ENT Exam ENT Exam: Mucous Membranes Moist, Normal Exam - Neck Exam Neck Exam: Normal Inspection - Respiratory Exam Respiratory Exam: Clear to Ausculation Bilateral, NORMAL BREATHING PATTERN - Cardiovascular Exam Cardiovascular Exam: RRR, +S1, +S2 - GI/Abdominal Exam GI & Abdominal Exam: Distended, Normal Bowel Sounds. absent: Tenderness - Extremities Exam Extremities Exam: Full ROM, Normal Inspection - Back Exam Back Exam: NORMAL INSPECTION - Neurological Exam Neurological Exam: Alert, Awake, Oriented x3 - Psychiatric Exam Psychiatric exam: Normal Affect, Normal Mood - Skin Skin Exam: Dry, Intact, Normal Color, Warm Assessment and Plan - Assessment and Plan (Free Text) Assessment: This is a 21yF pw fevers/headaches and diagnosed with viral meningitis. 1. Viral Meningitis 2. Constipation Plan: -Continue current treatment for viral meningitis per ID and primary team -Recommend aggressive bowel regimen with Miralax tid, enema prn constipation -Abdominal Xray with severe fecal retention, pt denies abdominal pain, nausea or vomiting -Encourage high fiber diet and mobility -Per GI, pt okay for discharge home on bowel regimen <Reid Pierre - Last Filed: 03/22/17 11:03> Objective - Vital Signs/Intake and Output Vital Signs (last 24 hours): Temp Pulse Resp BP Pulse Ox 98.2 F 100 H 20 117/78 94 L 03/22/17 08:23 03/22/17 08:23 03/22/17 08:23 03/22/17 08:23 03/22/17 08:23 - Medications Medications: Current Medications Acetaminophen (Tylenol 325mg Tab) 650 mg PO Q6 PRN PRN Reason: Headache Last Admin: 03/21/17 03:55 Dose: 650 mg Enoxaparin Sodium (Lovenox) 30 mg SC DAILY [facility] Last Admin: 03/22/17 09:14 Dose: 30 mg Famotidine (Pepcid) 20 mg PO BID [facility] Last Admin: 03/22/17 09:14 Dose: 20 mg Levetiracetam 500 mg/ Dextrose 105 mls @ 420 mls/hr IVPB Q12H [facility] Last Admin: 03/22/17 09:00 Dose: 420 mls/hr Lactulose (Enulose) 20 gm PO BID [facility] Last Admin: 03/22/17 09:13 Dose: 20 gm Methylprednisolone (Solu-Medrol) 250 mg IVP Q12H [facility] Stop: 03/22/17 22:01 Methylprednisolone (Solu-Medrol) 250 mg IVP DAILY [facility] Stop: 03/23/17 10:01 Ondansetron HCl (Zofran Inj) 4 mg IVP Q8 PRN PRN Reason: Nausea/Vomiting Last Admin: 03/17/17 13:53 Dose: 4 mg Polyethylene Glycol (Miralax) 17 gm PO TID [facility] Last Admin: 03/22/17 09:14 Dose: 17 gm Sodium Phosphate (Fleet Enema) 135 ml [place] DAILY PRN PRN Reason: Constipation Temazepam (Restoril) 15 mg PO HS PRN PRN Reason: Sleep Last Admin: 03/19/17 22:38 Dose: 15 mg - Labs Labs: 03/22/17 07:48 03/22/17 07:48 Attending/Attestation - Attestation I have personally seen and examined this patient.: Yes I have fully participated in the care of the patient.: Yes I have reviewed all pertinent clinical information, including history, physical exam and plan: Yes Notes (Text): 03/22/17 11:00 I have seen and examined patient with GI fellow. No acute events overnight, she is seen resting in bed comfortably. She had a bowel movement following use of enema yesterday and denies abdominal pain, nausea, vomiting, fever/chills. Tolerating PO diet without difficulty, she is asking to go home. Review of vitals from today shows tachycardia. Viral meningitis Constipation - Diet as tolerated - Treatment of viral meningitis as per medical team, currently off antibiotic therapy - Administer repeat enema today followed by maintenance of aggressive bowel regimen to prevent constipation - OOB and ambulation - From GI perspective ok to discharge home with subsequent outpatient follow up. Will sign off case, please reconsult as necessary, thank you.
[2017-03-22] MEDS ORDERED: Mineral Oil Enema 135 ml RC ONE (11:04)
--- NOTE | 2017-03-22 12:14 | CP.PCM.PN ---
Subjective - Date & Time of Evaluation Date of Evaluation: 03/22/17 Time of Evaluation: 10:00 - Subjective Subjective: events noted off antibiotics follow up with dr Jaxon Aguila Objective - Vital Signs/Intake and Output Vital Signs (last 24 hours): Temp Pulse Resp BP Pulse Ox 98.2 F 100 H 20 117/78 94 L 03/22/17 08:23 03/22/17 08:23 03/22/17 08:23 03/22/17 08:23 03/22/17 08:23 - Medications Medications: Current Medications Acetaminophen (Tylenol 325mg Tab) 650 mg PO Q6 PRN PRN Reason: Headache Last Admin: 03/21/17 03:55 Dose: 650 mg Enoxaparin Sodium (Lovenox) 30 mg SC DAILY [facility] Last Admin: 03/22/17 09:14 Dose: 30 mg Famotidine (Pepcid) 20 mg PO BID [facility] Last Admin: 03/22/17 09:14 Dose: 20 mg Levetiracetam 500 mg/ Dextrose 105 mls @ 420 mls/hr IVPB Q12H [facility] Last Admin: 03/22/17 09:00 Dose: 420 mls/hr Lactulose (Enulose) 20 gm PO BID [facility] Last Admin: 03/22/17 09:13 Dose: 20 gm Methylprednisolone (Solu-Medrol) 250 mg IVP Q12H [facility] Stop: 03/22/17 22:01 Last Admin: 03/22/17 11:00 Dose: 250 mg Methylprednisolone (Solu-Medrol) 250 mg IVP DAILY [facility] Stop: 03/23/17 10:01 Ondansetron HCl (Zofran Inj) 4 mg IVP Q8 PRN PRN Reason: Nausea/Vomiting Last Admin: 03/17/17 13:53 Dose: 4 mg Polyethylene Glycol (Miralax) 17 gm PO TID [facility] Last Admin: 03/22/17 09:14 Dose: 17 gm Sodium Phosphate (Fleet Enema) 135 ml [place] DAILY PRN PRN Reason: Constipation Temazepam (Restoril) 15 mg PO HS PRN PRN Reason: Sleep Last Admin: 03/19/17 22:38 Dose: 15 mg - Labs Labs: 03/22/17 07:48 03/22/17 07:48 - Constitutional Appears: Non-toxic, Chronically Ill - Head Exam Head Exam: NORMOCEPHALIC - Eye Exam Eye Exam: PERRL - ENT Exam ENT Exam: Mucous Membranes Dry - Neck Exam Neck Exam: absent: Lymphadenopathy - Respiratory Exam Respiratory Exam: Decreased Breath Sounds - Cardiovascular Exam Cardiovascular Exam: REGULAR RHYTHM - GI/Abdominal Exam GI & Abdominal Exam: Distended Assessment and Plan (1) Headache Status: Acute (2) Meningitis Status: Acute
--- NOTE | 2017-03-22 21:23 | CP.PCM.PN ---
Subjective - Date & Time of Evaluation Date of Evaluation: 03/22/17 Time of Evaluation: 10:00 - Subjective Subjective: clinically same Objective - Vital Signs/Intake and Output Vital Signs (last 24 hours): Temp Pulse Resp BP Pulse Ox 98.2 F 93 H 20 120/78 96 03/22/17 15:10 03/22/17 15:10 03/22/17 15:10 03/22/17 15:10 03/22/17 15:10 Intake and Output: 03/22/17 03/23/17 18:59 06:59 Intake Total 450 Balance 450 - Medications Medications: Current Medications Acetaminophen (Tylenol 325mg Tab) 650 mg PO Q6 PRN PRN Reason: Headache Last Admin: 03/21/17 03:55 Dose: 650 mg Enoxaparin Sodium (Lovenox) 30 mg SC DAILY [facility] Last Admin: 03/22/17 09:14 Dose: 30 mg Famotidine (Pepcid) 20 mg PO BID [facility] Last Admin: 03/22/17 18:32 Dose: 20 mg Levetiracetam 500 mg/ Dextrose 105 mls @ 420 mls/hr IVPB Q12H [facility] Last Admin: 03/22/17 20:46 Dose: 420 mls/hr Lactulose (Enulose) 20 gm PO BID [facility] Last Admin: 03/22/17 18:31 Dose: 20 gm Methylprednisolone (Solu-Medrol) 250 mg IVP Q12H [facility] Stop: 03/22/17 22:01 Last Admin: 03/22/17 21:03 Dose: 250 mg Methylprednisolone (Solu-Medrol) 250 mg IVP DAILY [facility] Stop: 03/23/17 10:01 Ondansetron HCl (Zofran Inj) 4 mg IVP Q8 PRN PRN Reason: Nausea/Vomiting Last Admin: 03/17/17 13:53 Dose: 4 mg Polyethylene Glycol (Miralax) 17 gm PO TID [facility] Last Admin: 03/22/17 18:31 Dose: 17 gm Sodium Phosphate (Fleet Enema) [address] DAILY PRN PRN Reason: Constipation Temazepam (Restoril) 15 mg PO HS PRN PRN Reason: Sleep Last Admin: 03/19/17 22:38 Dose: 15 mg - Labs Labs: 03/22/17 07:48 03/22/17 07:48 - Constitutional Appears: Well - Head Exam Head Exam: ATRAUMATIC, NORMAL INSPECTION, NORMOCEPHALIC - Eye Exam Eye Exam: EOMI, Normal appearance, PERRL Pupil Exam: NORMAL ACCOMODATION, PERRL - ENT Exam ENT Exam: Mucous Membranes Moist, Normal Exam - Neck Exam Neck Exam: Full ROM, Normal Inspection. absent: Lymphadenopathy - Respiratory Exam Respiratory Exam: Decreased Breath Sounds - Cardiovascular Exam Cardiovascular Exam: REGULAR RHYTHM, +S1, +S2 - GI/Abdominal Exam GI & Abdominal Exam: Soft, Diminished Bowel Sounds - Rectal Exam Rectal Exam: Deferred
[2017-03-23 07:30] LABS: BASO % 0.1 % (0.0-2.0); CHLORIDE 98 mmol/L (98-107); HEMATOCRIT 35.1 % (34.0-47.0); LYMPH # 0.9 K/uL (1.0-4.3); LYMPH % 11.8 % (20.0-40.0); MEAN CELL VOLUME 86.6 fL (81.0-99.0); MEAN CORPUSCULAR HEMOGLOBIN 29.9 pg (27.0-31.0); MEAN CORPUSCULAR HGB CONC 34.5 g/dL (33.0-37.0); MEAN PLATELET VOLUME 7.1 fL (7.2-11.7); MONO # 0.5 K/uL (0.0-0.8); MONO % 5.9 % (0.0-10.0); NRBC % 0.2 % (0.0-2.0); POTASSIUM 4.2 mmol/L (3.6-5.2); RED CELL DISTRIBUTION WIDTH 13.1 % (11.5-14.5); SODIUM 135 mmol/L (132-148); WHITE BLOOD COUNT 7.6 K/uL (4.8-10.8)
[2017-03-23 07:32] LABS: GFR AFRICAN-AMERICAN > 60
[2017-03-23 07:33] LABS: ALB/GLOB RATIO 0.9 (1.0-2.1); ALKALINE PHOSPHATASE 32 U/L (38-126); ALT/SGPT 33 U/L (9-52); AST/SGOT 20 U/L (14-36); BILIRUBIN,TOTAL 0.5 mg/dL (0.2-1.3); BLOOD UREA NITROGEN 13 mg/dL (7-17); CARBON DIOXIDE 28 mmol/L (22-30); GLUCOSE,RANDOM 126 mg/dL (65-105); PHOSPHOROUS 3.9 mg/dL (2.5-4.5); TOTAL PROTEIN 7.6 g/dL (6.3-8.3)
[2017-03-23 07:34] LABS: CALCIUM 8.9 mg/dl (8.6-10.4)
[2017-03-23] MEDS: Enoxaparin 30 mg Syringe SC SCH (11:00)
[2017-03-23] MEDS: POLYETHYLENE GLYCOL 3350 17 GM/Dose PACKET PO SCH ×3 (11:00→17:48)
--- NOTE | 2017-03-23 11:29 | PN ---
DATE: 03/23/2017 NEUROLOGICAL PROBLEM: Possible autoimmune encephalitis, which has been almost resolved. PHYSICAL EXAMINATION: VITAL SIGNS: Blood pressure of 148/96, mean arterial pressure of 113, respiratory rate of 16, and temperature is afebrile. NEUROLOGIC: The patient's mentation is normal. Cranial nerve exam is normal. No sensory motor dysfunction. This patient is ambulatory at present. ASSESSMENT AND PLAN: The patient is getting the final dose of intravenous methylprednisolone today . Following this, from neurological point of view, the patient is cleared and the patient can be followed as an outpatient. Chago Mccormack MD
--- NOTE | 2017-03-23 13:40 | CP.PCM.PN ---
Subjective - Date & Time of Evaluation Date of Evaluation: 03/23/17 Time of Evaluation: 13:25 - Subjective Subjective: Progress note. Attending: Dr. Aguila Pt seen and examined at bedside. NO acute distress. No events overnight. Pt afebrile. Anxious to go home. No fevers, chills, vomiting, cp, sob. Awaiting clearance from ID and neuro. Objective - Vital Signs/Intake and Output Vital Signs (last 24 hours): Temp Pulse Resp BP Pulse Ox 99.3 F 99 H 20 111/77 97 03/23/17 08:51 03/23/17 08:51 03/23/17 08:51 03/23/17 08:51 03/23/17 08:51 - Medications Medications: Current Medications Acetaminophen (Tylenol 325mg Tab) 650 mg PO Q6 PRN PRN Reason: Headache Last Admin: 03/21/17 03:55 Dose: 650 mg Enoxaparin Sodium (Lovenox) 30 mg SC DAILY [facility] Last Admin: 03/23/17 11:00 Dose: Not Given Famotidine (Pepcid) 20 mg PO BID [facility] Last Admin: 03/23/17 11:00 Dose: 20 mg Levetiracetam 500 mg/ Dextrose 105 mls @ 420 mls/hr IVPB Q12H [facility] Last Admin: 03/23/17 08:44 Dose: 420 mls/hr Lactulose (Enulose) 20 gm PO BID [facility] Last Admin: 03/23/17 11:00 Dose: 20 gm Ondansetron HCl (Zofran Inj) 4 mg IVP Q8 PRN PRN Reason: Nausea/Vomiting Last Admin: 03/17/17 13:53 Dose: 4 mg Polyethylene Glycol (Miralax) 17 gm PO TID [facility] Last Admin: 03/23/17 11:00 Dose: 17 gm Sodium Phosphate (Fleet Enema) 135 ml [place] DAILY PRN PRN Reason: Constipation Temazepam (Restoril) 15 mg PO HS PRN PRN Reason: Sleep Last Admin: 03/19/17 22:38 Dose: 15 mg - Labs Labs: 03/23/17 06:55 03/23/17 06:55 - Constitutional Appears: Non-toxic, No Acute Distress - Head Exam Head Exam: ATRAUMATIC, NORMAL INSPECTION, NORMOCEPHALIC - Eye Exam Eye Exam: EOMI - ENT Exam ENT Exam: Mucous Membranes Moist - Neck Exam Neck Exam: Full ROM, Normal Inspection - Respiratory Exam Respiratory Exam: NORMAL BREATHING PATTERN. absent: Respiratory Distress - Cardiovascular Exam Cardiovascular Exam: +S1, +S2 - GI/Abdominal Exam GI & Abdominal Exam: Soft, Normal Bowel Sounds. absent: Tenderness - Extremities Exam Extremities Exam: Full ROM, Normal Inspection - Neurological Exam Neurological Exam: Alert, Awake, Oriented x3 - Psychiatric Exam Psychiatric exam: Normal Affect, Normal Mood - Skin Skin Exam: Dry, Intact, Normal Color, Warm Assessment and Plan - Assessment and Plan (Free Text) Assessment: This is a 21 yo female with past medical hx of migraines presenting with headache and neck stiffness, spinal tap performed, likely viral meningitis Viral meningitis/autoimmune encephalitis 03/23: getting steroids today, awaiting clearance from ID/neuro 03/22: Per Dr. Mccormack (neuro), if stable, patient may be discharged tomorrow 03/23 after final steroid dose w/ Neuro followup. 03/21: Per Dr. Meztger (ID), stop all IV Abx. Per Dr. Mccormack (Neuro) - Taper Methylprednisolone today TID, 03/22 to BID, 03/23 to qD, then steroids may be stopped. 03/18: CSF negative. BC negative x1d. Blood parasite negative. +Cannabinoids. +ANA6, RPR nonreactive -> consult placed to Dr. Desai, rheumatology. 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 pending official read. Head CT negative, repeat head ct negative Neurology following- it is Dr. Mccormack- Dr. Beatty was only covering this past weekend. ID following- Dr. Metzger - help appreciated. * IV acyclovir has been discontinued in favor of immune globulin and keppra * -IV methprednisolone added * IV IG and IV keppra have been added * Second ID consult placed with Dr. Jain continue droplet precautions>>> discontinued Nausea and vomiting -resolved 03/22: no episodes of n/v for several days 03/18: Last episode of n/v yesterday. Feeling better today. -X ray shows no evidence of obstruction -continue zofran for nausea -perhaps related to underlying meningitis -continue to monitor Constipation 03/22: GI signing off - Patient passed large watery BM after enema yesterday. From GI perspective ok to discharge home with subsequent outpatient follow up. * abdominal Xray 03/21 - Severe fecal retention in the colon with prominent retained contrast throughout the colon. Few distended loops of small bowel seen within the mid and lower abdomen, nonspecific. 03/21: GI Consult, Dr. Pierre, f/u recs * Recommend aggressive bowel regimen with Miralax tid, Dulcolax 10mg one time de guzman, and enema prn constipation. If no improvement with bowel regimen, will order Abdominal Xray. 03/18: No BM since 03/09. Colace inc to BID. Lactulose once. -no sign of obstruction -continue colace -awaiting BM Elevated prolactin 03/21: repeat prolactin again elevated at 32.1H -may be secondary to increased emotional/physical stress -MRI brain ordered -repeat prolactin back in normal range GI/DVT ppx -continue pepcid daily -SCDs Case discussed with attending. All medical management as per Dr. Jaxon Aguila
--- NOTE | 2017-03-23 17:15 | CP.PCM.PN ---
Subjective - Date & Time of Evaluation Date of Evaluation: 03/23/17 Time of Evaluation: 10:00 - Subjective Subjective: denies fever or headache [id number] Objective - Vital Signs/Intake and Output Vital Signs (last 24 hours): Temp Pulse Resp BP Pulse Ox 98.9 F 115 H 20 118/77 98 03/23/17 15:20 03/23/17 15:20 03/23/17 15:20 03/23/17 15:20 03/23/17 15:20 Intake and Output: 03/23/17 03/23/17 06:59 18:59 Intake Total 500 Balance 500 - Medications Medications: Current Medications Acetaminophen (Tylenol 325mg Tab) 650 mg PO Q6 PRN PRN Reason: Headache Last Admin: 03/21/17 03:55 Dose: 650 mg Enoxaparin Sodium (Lovenox) 30 mg [place] DAILY [facility] Last Admin: 03/23/17 11:00 Dose: Not Given Famotidine (Pepcid) 20 mg PO BID [facility] Last Admin: 03/23/17 11:00 Dose: 20 mg Levetiracetam 500 mg/ Dextrose 105 mls @ 420 mls/hr IVPB Q12H [facility] Last Admin: 03/23/17 08:44 Dose: 420 mls/hr Lactulose (Enulose) 20 gm PO BID [facility] Last Admin: 03/23/17 11:00 Dose: 20 gm Ondansetron HCl (Zofran Inj) 4 mg IVP Q8 PRN PRN Reason: Nausea/Vomiting Last Admin: 03/17/17 13:53 Dose: 4 mg Polyethylene Glycol (Miralax) 17 gm PO TID [facility] Last Admin: 03/23/17 14:19 Dose: 17 gm Sodium Phosphate (Fleet Enema) 135 ml [place] DAILY PRN PRN Reason: Constipation Temazepam (Restoril) 15 mg PO HS PRN PRN Reason: Sleep Last Admin: 03/19/17 22:38 Dose: 15 mg - Labs Labs: 03/23/17 06:55 03/23/17 06:55 - Constitutional Appears: Non-toxic, Chronically Ill - Head Exam Head Exam: NORMOCEPHALIC - Eye Exam Eye Exam: PERRL. absent: Scleral icterus - ENT Exam ENT Exam: Mucous Membranes Dry - Neck Exam Neck Exam: absent: Lymphadenopathy - Respiratory Exam Respiratory Exam: Decreased Breath Sounds - Cardiovascular Exam Cardiovascular Exam: REGULAR RHYTHM - GI/Abdominal Exam GI & Abdominal Exam: Distended, Soft - Rectal Exam Rectal Exam: Deferred - Exam Exam: NORMAL INSPECTION - Extremities Exam Extremities Exam: absent: Pedal Edema - Back Exam Back Exam: absent: CVA tenderness (L), CVA tenderness (R) - Neurological Exam Neurological Exam: Alert, Awake, Oriented x3 - Psychiatric Exam Psychiatric exam: Normal Mood - Skin Skin Exam: Dry Assessment and Plan (1) Headache Status: Acute (2) Meningitis Status: Acute
--- NOTE | 2017-03-23 17:42 | CP.PCM.PN ---
Subjective - Date & Time of Evaluation Date of Evaluation: 03/23/17 Time of Evaluation: 10:20 - Subjective Subjective: clinically same Objective - Vital Signs/Intake and Output Vital Signs (last 24 hours): Temp Pulse Resp BP Pulse Ox 98.9 F 106 H 20 118/77 98 03/23/17 15:20 03/23/17 17:10 03/23/17 15:20 03/23/17 15:20 03/23/17 15:20 Intake and Output: 03/23/17 03/23/17 06:59 18:59 Intake Total 500 Balance 500 - Medications Medications: Current Medications Acetaminophen (Tylenol 325mg Tab) 650 mg PO Q6 PRN PRN Reason: Headache Last Admin: 03/21/17 03:55 Dose: 650 mg Enoxaparin Sodium (Lovenox) 30 mg [place] DAILY [facility] Last Admin: 03/23/17 11:00 Dose: Not Given Famotidine (Pepcid) 20 mg PO BID [facility] Last Admin: 03/23/17 11:00 Dose: 20 mg Levetiracetam 500 mg/ Dextrose 105 mls @ 420 mls/hr IVPB Q12H [facility] Last Admin: 03/23/17 08:44 Dose: 420 mls/hr Lactulose (Enulose) 20 gm PO BID [facility] Last Admin: 03/23/17 11:00 Dose: 20 gm Ondansetron HCl (Zofran Inj) 4 mg IVP Q8 PRN PRN Reason: Nausea/Vomiting Last Admin: 03/17/17 13:53 Dose: 4 mg Polyethylene Glycol (Miralax) 17 gm PO TID [facility] Last Admin: 03/23/17 14:19 Dose: 17 gm Sodium Phosphate (Fleet Enema) 135 ml [place] DAILY PRN PRN Reason: Constipation Temazepam (Restoril) 15 mg PO HS PRN PRN Reason: Sleep Last Admin: 03/19/17 22:38 Dose: 15 mg - Labs Labs: 03/23/17 06:55 03/23/17 06:55 - Constitutional Appears: Well - Head Exam Head Exam: ATRAUMATIC, NORMAL INSPECTION, NORMOCEPHALIC - Eye Exam Eye Exam: EOMI, Normal appearance, PERRL Pupil Exam: NORMAL ACCOMODATION, PERRL - ENT Exam ENT Exam: Mucous Membranes Moist, Normal Exam - Neck Exam Neck Exam: Full ROM, Normal Inspection. absent: Lymphadenopathy - Respiratory Exam Respiratory Exam: Decreased Breath Sounds - Cardiovascular Exam Cardiovascular Exam: REGULAR RHYTHM, +S1, +S2 - GI/Abdominal Exam GI & Abdominal Exam: Soft, Diminished Bowel Sounds - Rectal Exam Rectal Exam: Deferred
[2017-03-24 01:31] LABS: ACETONE None Detected; ETHANOL None Detected; METHANOL None Detected
[2017-03-24] MEDS: Enoxaparin 30 mg Syringe SC SCH (10:22)
[2017-03-24] MEDS: POLYETHYLENE GLYCOL 3350 17 GM/Dose PACKET PO SCH ×2 (10:23→14:47)
[2017-03-24 11:26] LABS: EPSTEIN-BARR VCA AB IGG >750.00 U/mL; EPSTEIN-BARR VCA AB IGM <36.00 U/mL
--- NOTE | 2017-03-24 13:29 | CP.PCM.PN ---
Subjective - Date & Time of Evaluation Date of Evaluation: 03/24/17 Time of Evaluation: 13:25 - Subjective Subjective: Progress note. Attending: Dr. Obi Aguila Pt seen and examined at bedside. NO acute distress. No events overnight. Pt afebrile, improving. Cleared by neuro and ID, plan for DC today. Objective - Vital Signs/Intake and Output Vital Signs (last 24 hours): Temp Pulse Resp BP Pulse Ox 98.9 F 119 H 20 123/84 97 03/24/17 08:37 03/24/17 08:37 03/24/17 08:37 03/24/17 08:37 03/24/17 08:37 Intake and Output: 03/24/17 03/24/17 06:59 18:59 Intake Total 100 Balance 100 - Medications Medications: Current Medications Acetaminophen (Tylenol 325mg Tab) 650 mg PO Q6 PRN PRN Reason: Headache Last Admin: 03/21/17 03:55 Dose: 650 mg Enoxaparin Sodium (Lovenox) 30 mg [place] DAILY [facility] Last Admin: 03/24/17 10:22 Dose: Not Given Famotidine (Pepcid) 20 mg PO BID [facility] Last Admin: 03/24/17 10:23 Dose: 20 mg Levetiracetam 500 mg/ Dextrose 105 mls @ 420 mls/hr IVPB Q12H [facility] Last Admin: 03/24/17 08:14 Dose: 420 mls/hr Lactulose (Enulose) 20 gm PO BID [facility] Last Admin: 03/24/17 10:23 Dose: 20 gm Ondansetron HCl (Zofran Inj) 4 mg IVP Q8 PRN PRN Reason: Nausea/Vomiting Last Admin: 03/17/17 13:53 Dose: 4 mg Polyethylene Glycol (Miralax) 17 gm PO TID [facility] Last Admin: 03/24/17 10:23 Dose: 17 gm Sodium Phosphate (Fleet Enema) 135 ml [place] DAILY PRN PRN Reason: Constipation - Labs Labs: 03/23/17 06:55 03/23/17 06:55 - Constitutional Appears: Non-toxic, No Acute Distress - Head Exam Head Exam: ATRAUMATIC, NORMAL INSPECTION, NORMOCEPHALIC - Eye Exam Eye Exam: EOMI - ENT Exam ENT Exam: Mucous Membranes Moist - Neck Exam Neck Exam: Full ROM, Normal Inspection - Respiratory Exam Respiratory Exam: NORMAL BREATHING PATTERN. absent: Respiratory Distress - Cardiovascular Exam Cardiovascular Exam: +S1, +S2 - GI/Abdominal Exam GI & Abdominal Exam: Soft, Normal Bowel Sounds. absent: Tenderness - Extremities Exam Extremities Exam: Full ROM, Normal Inspection - Neurological Exam Neurological Exam: Alert, Awake, Oriented x3 - Psychiatric Exam Psychiatric exam: Normal Affect, Normal Mood - Skin Skin Exam: Dry, Intact, Normal Color, Warm Assessment and Plan - Assessment and Plan (Free Text) Assessment: This is a 21 yo female with past medical hx of migraines presenting with headache and neck stiffness, spinal tap performed, likely viral meningitis Viral meningitis/autoimmune encephalitis 03/24: plan for discharge today. 03/23: getting steroids today, awaiting clearance from ID/neuro 03/22: Per Dr. Mccormack (neuro), if stable, patient may be discharged tomorrow 03/23 after final steroid dose w/ Neuro followup. 03/21: Per Dr. Metzger (ID), stop all IV Abx. Per Dr. Mccormack (Neuro) - Taper Methylprednisolone today TID, 03/22 to BID, 03/23 to qD, then steroids may be stopped. 03/18: CSF negative. BC negative x1d. Blood parasite negative. +Cannabinoids. +ANA6, RPR nonreactive -> consult placed to Dr. Desai, rheumatology. 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 pending official read. Head CT negative, repeat head ct negative Neurology following- it is Dr. Mccormack- Dr. Beatty was only covering this past weekend. ID following- Dr. Metzger - help appreciated. * IV acyclovir has been discontinued in favor of immune globulin and keppra * -IV methprednisolone added * IV IG and IV keppra have been added * Second ID consult placed with Dr. Jain continue droplet precautions>>> discontinued Nausea and vomiting -resolved 03/22: no episodes of n/v for several days 03/18: Last episode of n/v yesterday. Feeling better today. -X ray shows no evidence of obstruction -continue zofran for nausea -perhaps related to underlying meningitis -continue to monitor Constipation 03/22: GI signing off - Patient passed large watery BM after enema yesterday. From GI perspective ok to discharge home with subsequent outpatient follow up. * abdominal Xray 03/21 - Severe fecal retention in the colon with prominent retained contrast throughout the colon. Few distended loops of small bowel seen within the mid and lower abdomen, nonspecific. 03/21: GI Consult, Dr. Pierre, f/u recs * Recommend aggressive bowel regimen with Miralax tid, Dulcolax 10mg one time de guzman, and enema prn constipation. If no improvement with bowel regimen, will order Abdominal Xray. 03/18: No BM since 03/09. Colace inc to BID. Lactulose once. -no sign of obstruction -continue colace -awaiting BM Elevated prolactin 03/21: repeat prolactin again elevated at 32.1H -may be secondary to increased emotional/physical stress -MRI brain ordered -repeat prolactin back in normal range GI/DVT ppx -continue pepcid daily -SCDs Case discussed with attending. All medical management as per Dr. Jaxon Aguila
[2017-03-24 14:25] LABS: SM ANTIBODY <1.0 NEG AI (<1.0 NEGATIVE)
[2017-03-24 15:22] VITALS: BP 113/73; PULSE 113; TEMP 98.7; O2SAT 100
[2017-03-25 00:29] LABS: RETICULIN AB IGA NEGATIVE (NEGATIVE)
[2017-03-25 01:38] LABS: PARIETAL CELL AB <20.0 U
[2017-03-25 01:58] LABS: DNA AB (DS) CRITH NEGATIVE (NEGATIVE)
[2017-03-25 03:36] LABS: RHEUMATOID FACTOR 4 IU/mL (<14)
[2017-03-26 00:51] LABS: MYOCARDIAL AB IF NEGATIVE (NEGATIVE)
== END 2017-03-24 16:40 | disposition home or self-care (01) | DRG 75 ==
LOC: C.ER 13:26 → C.9E 19:51 → C.6T 22:34
PROVIDERS: ADMIT Internal Medicine Nephrology; ATTEND Internal Medicine Nephrology
DX: A87.9 Viral meningitis, unspecified (principal); B15.9 Hepatitis A without hepatic coma; D70.9 Neutropenia, unspecified; E87.8 Other disorders of electrolyte and fluid balance, not elsewhere classified; B27.90 Infectious mononucleosis, unspecified without complication; G04.81 Other encephalitis and encephalomyelitis; G43.909 Migraine, unspecified, not intractable, without status migrainosus; K59.00 Constipation, unspecified; N92.6 Irregular menstruation, unspecified; N93.9 Abnormal uterine and vaginal bleeding, unspecified